=== PATIENT | male | born 1960 | race Caucasian/White ===

== ENCOUNTER 2016-06-28 09:48 | Outpatient (RCR) ==
[2016-02-28 14:51] VITALS: BMI 36.5
[2016-07-27 11:39] VITALS: BP 106/56
== END 2016-07-27 ==
LOC: PUL.REHAB 09:48
PROVIDERS: ATTEND Emergency Medicine
DX: J44.9 Chronic obstructive pulmonary disease, unspecified (principal)

== ENCOUNTER 2016-07-16 08:30 | Outpatient (CLI) | payer OTHER ==
[2016-02-28 14:51] VITALS: BMI 36.5
[2016-07-16 08:55] LABS: BASOPHILS # (AUTO) 0.1 K/uL (0-0.2); BASOPHILS % (AUTO) 0.7 % (0.0-3.0); EOSINOPHILS # (AUTO) 0.6 K/ul (0.0-0.7); EOSINOPHILS % (AUTO) 4.3 % (0.0-7.0); HEMATOCRIT 39.3 % (42.0-52.0); HEMOGLOBIN 12.7 g/dl (14.0-18.0); IMMATURE GRANULOCYTE % (AUTO) 0.6 % (0.0-5.0); LYMPHOCYTES # (AUTO) 2.6 K/uL (0.60-3.4); LYMPHOCYTES % (AUTO) 18.2 (10.0-50.0); MEAN CORPUSCULAR HGB CONC 32.3 (31.8-35.4); MEAN CORPUSCULAR VOLUME 86.6 fl (80.0-94.0); MONOCYTES # (AUTO) 1.1 K/uL (0.4-2.0); MONOCYTES % (AUTO) 7.7 (0-10); NEUTROPHILS # (AUTO) 9.7 K/ul (2.0-6.9); NEUTROPHILS % (AUTO) 68.5; PLATELET COUNT 365 10^3/uL (140-440); RED BLOOD COUNT 4.54 10^6/ul (4.70-6.10); WHITE BLOOD COUNT 14.09 K/ul (4.2-10.2)
[2016-07-16 09:33] LABS: ALBUMIN/GLOBULIN RATIO 1.33; ANION GAP 15.8; BILIRUBIN,TOTAL 0.32 mg/dL (0.00-1.20); BUN/CREATININE RATIO 16.66; CALCIUM 9.7 mg/dL (8.2-10.2); CREATININE 0.84 mg/dL (0.60-1.10); FERRITIN 211.62 ng/mL (21.81-274.66); POTASSIUM 4.8 mmol/L (3.5-5.1)
== END 2016-07-16 08:31 | disposition home or self-care (01) ==
LOC: LAB 08:30
PROVIDERS: ATTEND Internal Medicine Hematology & Oncology
DX: D50.9 Iron deficiency anemia, unspecified (principal)
CPT/HCPCS: 36415; 80053; 82728; 83540; 83550; 85025

== ENCOUNTER 2016-07-19 15:42 | Outpatient (CLI) ==
[2016-02-28 14:51] VITALS: BMI 36.5
[2016-07-19 16:05] LABS: OCCULT BLOOD INTERNAL QC 1 INTERNAL QC VALID; OCCULT BLOOD INTERNAL QC 2 INTERNAL QC VALID; OCCULT BLOOD INTERNAL QC 3 INTERNAL QC VALID; OCCULT BLOOD SAMPLE 1 NEGATIVE (NEGATIVE); OCCULT BLOOD SAMPLE 2 NEGATIVE (NEGATIVE); OCCULT BLOOD SAMPLE 3 NEGATIVE (NEGATIVE)
== END 2016-07-19 15:43 | disposition home or self-care (01) ==
LOC: LAB 15:42
PROVIDERS: ATTEND Internal Medicine Hematology & Oncology
DX: D50.9 Iron deficiency anemia, unspecified (principal)
CPT/HCPCS: 82272

== ENCOUNTER 2016-07-27 11:41 | Outpatient (CLI) ==
[2016-02-28 14:51] VITALS: BMI 36.5
--- NOTE | 2016-07-29 10:02 | HOLTER ---
PATIENT INFORMATION AND COMMENTS Indications: PALPITATIONS __ Patient Medications: DUONEB,PRILOSEC, LISINOPRIL, LIPITOR, DALIRESP, METFORMIN , VIT B6, SYMBICORT, PROAIR, NORCO, FLONASE, BENADRYL __ Pre-procedure Summary: Protocol: Standard Heart Rate Started: 07/27/16 1206 Minimum: 65 BPM Weight: 203 LBS Ended: 07/28/16 1206 Maximum: 147BPM Height: 65" Duration: 24 HOURS Average: 96 BPM _ INTERPRETATIONS/OBSERVATIONS: 1. BASIC RHYTHM: SINUS, RATE 65 TO 150/BPM, AVERAGE 96/BPM 2. INFREQUENT TO RARE PAC'S AND PVC'S 3. FEW SHORT RUNS OF PAT AND SVT, 3 TO 6 BEATS IN A ROW NOTED 4. NO ST-T WAVE CHANGES FROM BASELINE 5. ACTIVITY LOG NOT AVAILABLE MTDD
== END 2016-07-27 11:42 | disposition home or self-care (01) ==
LOC: CAR 11:41
PROVIDERS: ATTEND Emergency Medicine
DX: R00.2 Palpitations (principal); J44.9 Chronic obstructive pulmonary disease, unspecified

== ENCOUNTER 2016-07-28 07:52 | Outpatient (RCR) ==
[2016-07-27 11:51] VITALS: BMI 36.5
== END 2016-08-17 15:41 | disposition home or self-care (01) ==
LOC: PUL.REHAB 07:52
PROVIDERS: ATTEND Emergency Medicine
DX: J44.9 Chronic obstructive pulmonary disease, unspecified (principal)

== ENCOUNTER 2016-08-04 18:25 | Emergency (ER) ==
[2016-08-04] MEDS ORDERED: DUONEB NEB STA (18:27)
[2016-08-04 18:38] VITALS: BP 107/61; TEMP 98.8; BMI 33.7
--- NOTE | 2016-08-04 18:50 | DI ---
EXAM: Single view of the chest. History: Short of breath Comparison: Chest radiograph 02/29/2016 Findings: Normal heart size. No focal consolidation. No appreciable pleural fluid and no pneumoth orax. No acute osseous abnormalities. Impression: No acute cardiopulmonary process.
[2016-08-04 18:54] LABS: BASOPHILS % (AUTO) 0.2 % (0.0-3.0); EOSINOPHILS % (AUTO) 0.1 % (0.0-7.0); HEMATOCRIT 42.7 % (42.0-52.0); HEMOGLOBIN 14.3 g/dl (14.0-18.0); IMMATURE GRANULOCYTE % (AUTO) 0.5 % (0.0-5.0); LYMPHOCYTES # (AUTO) 0.8 K/uL (0.60-3.4); LYMPHOCYTES % (AUTO) 5.6 (10.0-50.0); MEAN CORPUSCULAR HGB CONC 33.5 (31.8-35.4); MEAN CORPUSCULAR VOLUME 83.7 fl (80.0-94.0); MONOCYTES # (AUTO) 0.2 K/uL (0.4-2.0); MONOCYTES % (AUTO) 1.6 (0-10); NEUTROPHILS # (AUTO) 12.7 K/ul (2.0-6.9); PLATELET COUNT 393 10^3/uL (140-440); WHITE BLOOD COUNT 13.79 K/ul (4.2-10.2)
[2016-08-04] MEDS ORDERED: SODIUM CHLORIDE 1,000 ML IV STA (18:58)
--- NOTE | 2016-08-04 19:07 | ED.PDOC ---
General Stated Complaint: PATIENT STATES SAW DR SPENCER TODAY TOLD TO GET A CHEST XRAY- WENT HOME AND RESTED AND GOT WORSE; FIVE DAYS AGO CHEST STARTED TO FEEL FUNNY. TOOK HOME BREATHING TREATMENTS. TODAY GOT UP HAD HARD TIME BREATHING CAME TO THE ER.[End]since 1529 98.8 140 28 96% 107/61 02/03 Time Seen by Physician: 18:30 Mode of Arrival: Walk-In Information Source: Patient, Family Exam Limitations: No limitations Nursing and Triage Documentation Reviewed and Agree: No <SURESH FUNES JR - Last Filed: 08/04/16 19:22> Stated Complaint: Had a recent Negative stress test one week ago. <PIPER JEAN - Last Filed: 08/04/16 20:04> ED Provider: Dr. PIPER JEAN (SURESH FUNES JR) (PIPER JEAN) Chief Complaint: Respiratory Complaint Review of Systems - Review Of Systems Constitutional: Reports: Diaphoresis, Fever, Malaise, Weakness Eyes: Reports: No symptoms Ears, Nose, Mouth, Throat: Reports: No symptoms Respiratory: Reports: Cough, Short of air, Wheezing Cardiac: Reports: Chest pain, Lightheadedness GI: Reports: No symptoms : Reports: No symptoms Musculoskeletal: Reports: No symptoms Skin: Reports: No symptoms Neurological: Reports: No symptoms Endocrine: Reports: No symptoms Hematologic/Lymphatic: Reports: No symptoms All Other Systems: Other <SURESH FUNES JR - Last Filed: 08/04/16 19:22> Past Medical History - Past Medical History Endocrine: Reports: DM 2 Cardiovascular: Reports: None Respiratory: Reports: COPD (oxygen dependent. ), Asthma, Bronchitis Hematological: Reports: None, Anemia Gastrointestinal: Reports: None, GERD Genitourinary: Reports: None Neuro/Psych: Reports: Anxiety, Depression Musculoskeletal: Reports: None Cancer: Reports: None Other Pertinent Past Medical History: Sleep Apnea, Obesity - Surgical History General Surgical History: Reports: Hernia Repair (HERNIA 2010) - Family History Family History: Reports: None - Social History Smoking Status: Current some day smoker Hx Substance Use: No Alcohol Screening: None - Immunizations Tetanus Shot up to Date: Yes <SURESH FUNES JR - Last Filed: 08/04/16 19:22> Physical Exam - Physical Exam Appearance: Ill-appearing, Obese Ill-appearing: Moderate Pain Distress: Moderate Neck: Supple Respiratory: Airway patent, Breath sounds diminished, Rhonchi, Wheezes Cardiovascular: RRR, Tachycardia Psychiatric: Anxious <SURESH FUNES JR - Last Filed: 08/04/16 19:22> Interpretation - Radiology Interpretation Radiology Interpretation By: Radiologist Radiology Results: Negative Exam Interpreted: CXR <PIPER JEAN - Last Filed: 08/04/16 20:04> Re-Evaluation - Re-Evaluation Time of Re-Evaluation: 19:19 Status: Worse (PATINET COMPLAINS BITTERLY OF SHORTNESS OF BREATH CHEST PRESSURE RADIATING INTO CAROTIDS- GRADUALLY IMPROVING ON EXAM- LUNGS TIGHT NO RALES) <SURESH FUNES JR - Last Filed: 08/04/16 19:22> Physician Notification - Case Discussed Time of Notification: 19:22 Endorsed To/Discussed With: DR JEAN <FUNESSURESH SHIVA GUSMAN - Last Filed: 08/04/16 19:22> Critical Care Note - Critical Care Note Total Time (mins): 15 <SURESH FUNES JR - Last Filed: 08/04/16 19:22> Course - Course Hematology/Chemistry: 08/04/16 18:30 08/04/16 18:30 <GIOPIPER TAYLOR - Last Filed: 08/04/16 20:04> - Course Orders, Labs, Meds: Lab Review 08/04/16 18:30 WBC 13.79 H RBC 5.10 Hgb 14.3 Hct 42.7 MCV 83.7 MCH 28.0 MCHC 33.5 RDW Coeff of Sameer 12.9 Plt Count 393 Immature Gran % (Auto) 0.5 Neut % (Auto) 92.0 Lymph % (Auto) 5.6 L [place] % (Auto) 1.6 Eos % (Auto) 0.1 Baso % (Auto) 0.2 Immature Gran # (Auto) 0.1 Neut # 12.7 H Lymph # 0.8 [place] # 0.2 L Eos # 0.0 Baso # 0.0 D-Dimer 0.23 Sodium 137 Potassium 5.2 H Chloride 99 Carbon Dioxide 20 L Anion Gap 23.2 BUN 22 H Creatinine 1.14 H Estimated GFR (MDRD) 66.00 BUN/Creatinine Ratio 19.29 Glucose 221 H Calcium 10.7 H Total Bilirubin 0.22 AST 16 ALT 21 Alkaline Phosphatase 68 Total Creatine Kinase 97 Troponin I < 0.0100 B-Natriuretic Peptide 15 Total Protein 7.6 Albumin 4.3 Globulin 3.3 Albumin/Globulin Ratio 1.30 Orders Category Date Time Status EKG-(ED ONLY) Stat CARDIO 08/04/16 18:29 Completed EKG-(ED ONLY) Stat CARDIO 08/04/16 19:18 Ordered NEBULIZER TREATMENT Stat CARDIO 08/04/16 18:27 Completed NEBULIZER TREATMENT Stat CARDIO 08/04/16 19:17 Ordered IV [ED IV/MEDIPORT/POWERPORT] EMERGENCY 08/04/16 18:58 Active B-TYPE NATRIURETIC PEPTIDE Stat LAB 08/04/16 18:30 Completed BLOOD CULTURE Stat LAB 08/04/16 18:30 Received CBC W/ AUTO DIFF Stat LAB 08/04/16 18:30 Completed COMPREHENSIVE METABOLIC PANEL Stat LAB 08/04/16 18:30 Completed CREATINE KINASE Stat LAB 08/04/16 18:30 Completed D-DIMER Stat LAB 08/04/16 18:30 Completed TROPONIN I Stat LAB 08/04/16 18:30 Completed 0.9 % Sodium Chloride [Saline Flush] MEDS 08/04/16 18:58 Ordered 1 syr IVF PRN PRN Azithromycin [Zithromax] MEDS 08/04/16 19:54 Discontinued 500 mg PO ONCE STA Ipratropium/Albuterol Neb [Duoneb] MEDS 08/04/16 18:27 Discontinued 1 vial NEB ONCE STA Levalbuterol HCl [Xopenex 1.25 mg] MEDS 08/04/16 19:17 Discontinued 1 vial NEB ONCE STA Lorazepam Inj [Ativan] MEDS 08/04/16 19:56 Discontinued 1 mg IVP ONCE STA Methylprednisolone Sod Succ/Pf [Solu-Medrol 125 mg] MEDS 08/04/16 19:53 Discontinued 125 mg IVP ONCE STA Sodium Chloride 0.9% [Sodium Chloride] 1,000 ml MEDS 08/04/16 18:58 Discontinued IV BOLUS CXR [CHEST, 1V AP ONLY] Stat RADS 08/04/16 18:40 Completed Medications Generic Name Dose Route Start Last Admin Trade Name Freq PRN Reason Stop Dose Admin Sodium Chloride 1 syr 08/04/16 18:58 Saline Flush IVF PRN PRN To flush IV Discontinued Medications Generic Name Dose Route Start Last Admin Trade Name Freq PRN Reason Stop Dose Admin Albuterol/Ipratropium 1 vial 08/04/16 18:27 08/04/16 18:39 Duoneb NEB 08/04/16 18:28 1 vial ONCE STA Administration Azithromycin 500 mg 08/04/16 19:54 Zithromax PO 08/04/16 19:55 ONCE STA Sodium Chloride 1,000 mls @ 1,000 mls/hr 08/04/16 18:58 08/04/16 19:07 Sodium Chloride IV 08/04/16 19:57 1,000 mls/hr BOLUS STA Administration Levalbuterol HCl 1 vial 08/04/16 19:17 08/04/16 19:24 Xopenex 1.25 Mg NEB 08/04/16 19:18 1 vial ONCE STA Administration Lorazepam 1 mg 08/04/16 19:56 Ativan IVP 08/04/16 19:57 ONCE STA Methylprednisolone Sodium Succinate 125 mg 08/04/16 19:53 Solu-Medrol 125 Mg IVP 08/04/16 19:54 ONCE STA (SURESH FUNES JR) (PIPER JEAN) Vital Signs: Temp Pulse Resp BP Pulse Ox 08/04/16 18:26 98.8 F 140 H 28 H 107/61 96 (SURESH FUNES JR) (PIPER JEAN) Departure <SURESH FUNES JR - Last Filed: 08/04/16 19:22> - Departure Time of Disposition: 19:54 Pt referred to PMD for follow-up: Yes Disposition Discussed With: Patient, Family <PIPER JEAN - Last Filed: 08/04/16 20:04> - Departure Disposition: HOME SELF-CARE Discharge Problem: COPD exacerbation, Bronchitis, Anxiety Instructions: Acute Bronchitis (ED), Separation Anxiety Disorder (ED) Condition: Fair Additional Instructions: Follow up with PCP in the morning. Take medication as prescribed. Prescriptions: Azithromycin [Zithromax] 250 mg PO DIRECTED #4 tablet Allergies/Adverse Reactions: Allergies gabapentin Allergy (Mild, Verified 08/04/16 18:28) heartburn , nausea No Known Allergies Allergy (Uncoded 08/04/16 18:28) Home Medications: Ambulatory Orders Hydrocodone/Acetaminophen [[place] 10-325 Tablet] 1 tab PO TID 03/02/13 Omeprazole Magnesium [Prilosec] 40 mg PO d 02/04/16 Pyridoxine HCl [Vitamin B-6] 100 mg PO DAILY 02/28/16 Roflumilast [Daliresp] 500 mcg PO DAILY 02/28/16 Azithromycin [Zithromax] 250 mg PO DIRECTED #4 tablet 08/04/16 Ipratropium/Albuterol Neb [Duoneb] 1 applic IH Q4HR 08/04/16
[2016-08-04] MEDS ORDERED: XOPENEX 1.25 MG NEB STA (19:17)
[2016-08-04 19:18] LABS: ALANINE AMINOTRANSFERASE 21 U/L (12-78); ALBUMIN 4.3 g/dL (3.4-5.0); ALKALINE PHOSPHATASE 68 U/L (50-136); ANION GAP 23.2; ASPARTATE AMINO TRANSFERASE 16 U/L (15-37); BILIRUBIN,TOTAL 0.22 mg/dL (0.00-1.20); BLOOD UREA NITROGEN 22 mg/dL (7-18); BUN/CREATININE RATIO 19.29; CALCIUM 10.7 mg/dL (8.2-10.2); CARBON DIOXIDE 20 mmol/L (21-32); CHLORIDE 99 mmol/L (98-107); CREATINE KINASE 97 U/L; CREATININE 1.14 mg/dL (0.60-1.10); GLUCOSE 221 mg/dL (70-100); POTASSIUM 5.2 mmol/L (3.5-5.1); SODIUM 137 mmol/L (136-145); TOTAL PROTEIN 7.6 g/dL (6.4-8.2)
[2016-08-04] MEDS ORDERED: SOLU-MEDROL 125 MG IVP STA (19:53)
[2016-08-04] MEDS ORDERED: ZITHROMAX PO STA (19:54)
[2016-08-04] MEDS ORDERED: ATIVAN IVP STA (19:56)
== END 2016-08-04 21:00 | disposition home or self-care (01) ==
LOC: ED 18:25
DX: J44.0 Chronic obstructive pulmonary disease with (acute) lower respiratory infection (principal); J20.9 Acute bronchitis, unspecified; J44.1 Chronic obstructive pulmonary disease with (acute) exacerbation; F41.9 Anxiety disorder, unspecified; E11.9 Type 2 diabetes mellitus without complications; Z99.81 Dependence on supplemental oxygen; E66.9 Obesity, unspecified; G47.30 Sleep apnea, unspecified; F17.210 Nicotine dependence, cigarettes, uncomplicated; Z79.899 Other long term (current) drug therapy; K21.9 Gastro-esophageal reflux disease without esophagitis
CPT/HCPCS: 36415; 80053; 82550; 83880; 84484; 85025; 85379; 87040; 93005; 93010; 94640; 96360; 96361; 96374; 96375; 99284

== ENCOUNTER 2016-08-05 12:17 | Outpatient (CLI) ==
[2016-08-04 18:38] VITALS: BMI 33.7
--- NOTE | 2016-08-05 13:25 | DI ---
EXAM: Right forearm two-view HISTORY: Pain in right arm COMPARISON: None FINDINGS/IMPRESSION: No acute fracture or dislocation. There is a old healed fracture of the proxim al diaphysis of the radius with remodeling. There is ossific prominence/protuberance proximal ulna, probably due to old trauma/remodeling. 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 Several well marginated ca lcific densities about the wrist may be due to old trauma or chondrocalcinosis.
--- NOTE | 2016-08-05 13:27 | DI ---
EXAM: Chest two view, frontal and lateral views. HISTORY: Bronchitis. COMPARISON: 08/04/2016. FINDINGS: The heart size is normal. There is no pulmonary vascular congestion. The lungs are virgen r. No pleural effusion or pneumothorax is seen. No acute osseous abnormality identified. Since prior study, there has been no significant interval change. IMPRESSION: No acute cardiopulmonary process.
== END 2016-08-05 12:18 | disposition home or self-care (01) ==
LOC: RAD 12:17
PROVIDERS: ATTEND Emergency Medicine
DX: J40 Bronchitis, not specified as acute or chronic (principal); M79.601 Pain in right arm

== ENCOUNTER 2016-10-12 08:02 | Outpatient (CLI) ==
[2016-10-12 08:30] LABS: BASOPHILS # (AUTO) 0.1 K/uL (0-0.2); BASOPHILS % (AUTO) 0.5 % (0.0-3.0); EOSINOPHILS # (AUTO) 0.6 K/ul (0.0-0.7); EOSINOPHILS % (AUTO) 3.8 % (0.0-7.0); HEMATOCRIT 40.8 % (42.0-52.0); HEMOGLOBIN 13.6 g/dl (14.0-18.0); IMMATURE GRANULOCYTE % (AUTO) 0.4 % (0.0-5.0); LYMPHOCYTES # (AUTO) 2.1 K/uL (0.60-3.4); LYMPHOCYTES % (AUTO) 14.3 (10.0-50.0); MEAN CORPUSCULAR HEMOGLOBIN 27.7 pg (27.0-31.0); MEAN CORPUSCULAR HGB CONC 33.3 (31.8-35.4); MEAN CORPUSCULAR VOLUME 83.1 fl (80.0-94.0); MONOCYTES # (AUTO) 1.2 K/uL (0.4-2.0); MONOCYTES % (AUTO) 7.8 (0-10); NEUTROPHILS # (AUTO) 10.9 K/ul (2.0-6.9); NEUTROPHILS % (AUTO) 73.2; PLATELET COUNT 331 10^3/uL (140-440); RED BLOOD COUNT 4.91 10^6/ul (4.70-6.10); WHITE BLOOD COUNT 14.89 K/ul (4.2-10.2)
[2016-10-12 09:00] LABS: ALBUMIN/GLOBULIN RATIO 1.43; ANION GAP 16.2; BILIRUBIN,TOTAL 0.35 mg/dL (0.00-1.20); BUN/CREATININE RATIO 13.15; CALCIUM 9.6 mg/dL (8.2-10.2); CREATININE 0.76 mg/dL (0.60-1.10); POTASSIUM 4.2 mmol/L (3.5-5.1); TOTAL PROTEIN 6.8 g/dL (6.4-8.2)
[2016-10-12 09:19] LABS: FERRITIN 140.11 ng/mL (21.81-274.66)
== END 2016-10-12 08:03 | disposition home or self-care (01) ==
LOC: LAB 08:02
PROVIDERS: ATTEND Internal Medicine Hematology & Oncology
DX: E13.9 Other specified diabetes mellitus without complications (principal); D45 Polycythemia vera; D64.9 Anemia, unspecified
CPT/HCPCS: 36415; 80053; 82728; 83540; 83550; 85025

== ENCOUNTER 2016-10-14 11:30 | Emergency (ER) ==
[2016-10-14 11:36] VITALS: BP 104/66; TEMP 97.8; BMI 34.1
[2016-10-14] MEDS ORDERED: VALIUM SYRINGE IM STA (12:05)
[2016-10-14] MEDS ORDERED: TORADOL IM STA (12:05)
[2016-10-14] MEDS ORDERED: NORFLEX IM STA (12:06)
--- NOTE | 2016-10-14 12:08 | ED.PDOC ---
General ED Provider: Dr. ANNABELLE SILVA Chief Complaint: Back Pain Stated Complaint: low back pain Time Seen by Physician: 11:49 (richard present at all times denied trauma) Mode of Arrival: Walk-In Information Source: Patient Exam Limitations: No limitations [facility] Nursing and Triage Documentation Reviewed and Agree: Yes Musculoskeletal Complaint Exam - Back Pain Complaint/Exam Mechanism of Injury: Reports: No known trauma Onset/Duration: chronic sees a pain clinic on normn 10mg Symptoms Are: Still present Timing: Intermittent Episodes Lasting: Hours Initial Severity: Moderate Current Severity: Moderate Character: Reports: Throbbing, Spasmodic Aggravating: Reports: Movements, Lifting, Bending, Walking Alleviating: Reports: Rest, Position Associated Signs and Symptoms: Denies: Swelling, Redness, Bruising, Fever, Weakness, Numbness, Tingling, Abdominal pain, Flank pain, Bladder incontinence, Bowel incontinence, Weight loss, Pain with weight bearing Related History: Reports: Similar episode TAD Risk Factors: Reports: None AAA Risk Factors: Reports: None Cauda Equina Risk Factors: Reports: None Epidural Abcess Risk Factors: Reports: None Related Surgical History: Reports: None Focal Tenderness: No Paraspinal Muscle Tenderness: No Paraspinal Muscle Spasm: No Scoliosis: No Lordosis: No Kyphosis: No Focal Sensory Loss: Present: None Gait: Present: Unable Differential Diagnoses: Strain, Sprain Review of Systems - Review Of Systems Constitutional: Reports: No symptoms Eyes: Reports: No symptoms Ears, Nose, Mouth, Throat: Reports: No symptoms Respiratory: Reports: No symptoms Cardiac: Reports: No symptoms GI: Reports: No symptoms : Reports: No symptoms Musculoskeletal: Reports: Back pain Skin: Reports: No symptoms Neurological: Reports: No symptoms Endocrine: Reports: No symptoms Hematologic/Lymphatic: Reports: No symptoms All Other Systems: Reviewed and Negative Past Medical History - Past Medical History Endocrine: Reports: DM 2 Cardiovascular: Reports: None Respiratory: Reports: COPD (oxygen dependent. ), Asthma, Bronchitis Hematological: Reports: None, Anemia Gastrointestinal: Reports: None, GERD Genitourinary: Reports: None Neuro/Psych: Reports: Anxiety, Depression Musculoskeletal: Reports: None Cancer: Reports: None Other Pertinent Past Medical History: Sleep Apnea, Obesity - Surgical History General Surgical History: Reports: Hernia Repair (HERNIA 2010) - Family History Family History: Reports: None - Social History Smoking Status: Current some day smoker Hx Substance Use: No Alcohol Screening: None Physical Exam - Physical Exam Appearance: Well-appearing, No pain distress, Well-nourished Eyes: SARAH, EOMI, Conjunctiva clear ENT: Ears normal, Nose normal, Oropharynx normal Respiratory: Airway patent, Breath sounds clear, Breath sounds equal, Respirations nonlabored Cardiovascular: RRR, Pulses normal, No rub, No murmur GI/: Soft, Nontender, No masses, Bowel sounds normal, No Organomegaly Musculoskeletal: Normal strength, ROM intact, No edema, No calf tenderness Skin: Warm, Dry, Normal color Neurological: Sensation intact, Motor intact, Reflexes intact, Cranial nerves intact, Alert, Oriented Psychiatric: Affect appropriate, Mood appropriate Critical Care Note - Critical Care Note Total Time (mins): 0 Course - Course Orders, Labs, Meds: Orders Category Date Time Status Diazepam Syringe [Valium Syringe] MEDS 10/14/16 12:05 Stat 5 mg IM ONCE STA Ketorolac Tromethamine [Toradol] MEDS 10/14/16 12:05 Stat 60 mg IM ONCE STA Orphenadrine Citrate [Norflex] MEDS 10/14/16 12:06 Stat 30 mg IM ONCE STA Medications Discontinued Medications Generic Name Dose Route Start Last Admin Trade Name Freq PRN Reason Stop Dose Admin Diazepam 5 mg 10/14/16 12:05 Valium Syringe IM 10/14/16 12:06 ONCE STA Ketorolac Tromethamine 60 mg 10/14/16 12:05 Toradol IM 10/14/16 12:06 ONCE STA Vital Signs: Temp Pulse Resp BP Pulse Ox 10/14/16 11:34 97.8 F 103 H 16 104/66 94 L Departure - Departure Time of Disposition: 13:00 Disposition: HOME SELF-CARE Discharge Problem: Backache Instructions: Chronic Back Pain (ED) Condition: Good Pt referred to PMD for follow-up: No Additional Instructions: Please call your Family Physician as soon as possible to schedule a follow-up appointment. Allergies/Adverse Reactions: Allergies gabapentin Allergy (Mild, Verified 08/04/16 18:28) heartburn , nausea Home Medications: Ambulatory Orders Hydrocodone/Acetaminophen [[place] 10-325 Tablet] 1 tab PO TID 03/02/13 Omeprazole Magnesium [Prilosec] 40 mg PO d 02/04/16 Pyridoxine HCl [Vitamin B-6] 100 mg PO DAILY 02/28/16 Roflumilast [Daliresp] 500 mcg PO DAILY 02/28/16
== END 2016-10-14 13:05 | disposition home or self-care (01) ==
LOC: ED 11:30
DX: M54.5 Low back pain (principal); G89.29 Other chronic pain; F17.210 Nicotine dependence, cigarettes, uncomplicated
CPT/HCPCS: 96372; 99283

== ENCOUNTER 2016-12-30 07:24 | Outpatient (CLI) ==
[2016-12-30 07:56] LABS: BASOPHILS # (AUTO) 0.1 K/uL (0-0.2); BASOPHILS % (AUTO) 0.7 % (0.0-3.0); EOSINOPHILS # (AUTO) 0.5 K/ul (0.0-0.7); EOSINOPHILS % (AUTO) 3.9 % (0.0-7.0); HEMOGLOBIN 13.5 g/dl (14.0-18.0); IMMATURE GRANULOCYTE % (AUTO) 0.5 % (0.0-5.0); LYMPHOCYTES # (AUTO) 2.1 K/uL (0.60-3.4); LYMPHOCYTES % (AUTO) 15.6 (10.0-50.0); MEAN CORPUSCULAR HEMOGLOBIN 27.1 pg (27.0-31.0); MEAN CORPUSCULAR HGB CONC 32.9 (31.8-35.4); MEAN CORPUSCULAR VOLUME 82.3 fl (80.0-94.0); MONOCYTES # (AUTO) 1.1 K/uL (0.4-2.0); MONOCYTES % (AUTO) 8.1 (0-10); NEUTROPHILS # (AUTO) 9.6 K/ul (2.0-6.9); NEUTROPHILS % (AUTO) 71.2; PLATELET COUNT 331 10^3/uL (140-440); RED BLOOD COUNT 4.98 10^6/ul (4.70-6.10); WHITE BLOOD COUNT 13.45 K/ul (4.2-10.2)
[2016-12-30 08:29] LABS: FERRITIN 139.08 ng/mL (21.81-274.66)
== END 2016-12-30 07:25 | disposition home or self-care (01) ==
LOC: LAB 07:24
PROVIDERS: ATTEND Internal Medicine Hematology & Oncology
DX: D64.9 Anemia, unspecified (principal); D45 Polycythemia vera
CPT/HCPCS: 36415; 82728; 83540; 83550; 85025

== ENCOUNTER 2017-01-10 19:22 | Inpatient (IN) ==
[2017-01-10] MEDS ORDERED: SODIUM CHLORIDE 500 ML IV STA ×2 (19:26→20:38)
[2017-01-10] MEDS ORDERED: CARDIZEM INJ IVP STA (19:26)
[2017-01-10] MEDS ORDERED: CARDIZEM INJ 125 MG in SODIUM CHLORIDE 100 ML IV SCH (19:30)
[2017-01-10 19:53] LABS: BASOPHILS # (AUTO) 0.1 K/uL (0-0.2); BASOPHILS % (AUTO) 0.6 % (0.0-3.0); EOSINOPHILS # (AUTO) 0.6 K/ul (0.0-0.7); EOSINOPHILS % (AUTO) 3.7 % (0.0-7.0); HEMATOCRIT 42.1 % (42.0-52.0); HEMOGLOBIN 14.1 g/dl (14.0-18.0); IMMATURE GRANULOCYTE % (AUTO) 0.4 % (0.0-5.0); LYMPHOCYTES % (AUTO) 19.2 (10.0-50.0); MEAN CORPUSCULAR HEMOGLOBIN 27.1 pg (27.0-31.0); MEAN CORPUSCULAR HGB CONC 33.5 (31.8-35.4); MEAN CORPUSCULAR VOLUME 80.8 fl (80.0-94.0); MONOCYTES # (AUTO) 1.2 K/uL (0.4-2.0); MONOCYTES % (AUTO) 7.6 (0-10); NEUTROPHILS # (AUTO) 10.7 K/ul (2.0-6.9); NEUTROPHILS % (AUTO) 68.5; PLATELET COUNT 337 10^3/uL (140-440); RED BLOOD COUNT 5.21 10^6/ul (4.70-6.10); WHITE BLOOD COUNT 15.58 K/ul (4.2-10.2)
[2017-01-10] MEDS ORDERED: SODIUM CHLORIDE 1,000 ML IV STA (20:12)
[2017-01-10 20:34] LABS: ALANINE AMINOTRANSFERASE 26 U/L (12-78); ALBUMIN 3.7 g/dL (3.4-5.0); ALBUMIN/GLOBULIN RATIO 1.23; ALKALINE PHOSPHATASE 69 U/L (50-136); ASPARTATE AMINO TRANSFERASE 18 U/L (15-37); BILIRUBIN,TOTAL 0.18 mg/dL (0.00-1.20); BLOOD UREA NITROGEN 15 mg/dL (7-18); BUN/CREATININE RATIO 18.51; CARBON DIOXIDE 19 mmol/L (21-32); CHLORIDE 105 mmol/L (98-107); CREATINE KINASE 132 U/L; CREATINE KINASE MB 1.6 ng/ml (0.0-3.6); CREATININE 0.81 mg/dL (0.60-1.10); GLUCOSE 156 mg/dL (70-100); SODIUM 139 mmol/L (136-145); TOTAL PROTEIN 6.7 g/dL (6.4-8.2)
--- NOTE | 2017-01-10 20:40 | ED.PDOC ---
General ED Provider: Dr. MARY BACK-ER Chief Complaint: Palpitations Stated Complaint: magdi been sob and using nebs and now my heart rate is 190s Time Seen by Physician: 19:30 Mode of Arrival: Ambulance Information Source: Patient Exam Limitations: No limitations [facility] Documentation Reviewed and Agree: Yes Respiratory Complaint Exam - Respiratory Complaint/Exam Onset/Duration: less than 2hrs Symptoms Are: Still present Timing: Constant Initial Severity: Moderate Current Severity: Moderate Location: Chest Aggravating: Reports: None Alleviating: Reports: Bronchodilators Associated Signs and Symptoms: Reports: Dyspnea. Denies: Rapid breathing, Fever , Chills, Chest pain, Pleuritic chest pain, Wheezing, Hemoptysis, Dizziness, Calf pain, Calf swelling, Edema, URI, Nasal congestion, Hoarseness, Sinus discomfort, Vomiting, Sore throat, Weight loss, Decreased oral intake, Increased thirst, Increased appetite, Increased urination Related History: Reports: Similar episode History of Healthcare-Acquired Pneumonia: No Pseudomonas Risk Factors: Reports: Chronic Lung Disease Tuberculosis Risk Factors: Reports: Chronic Resp. Faliure Home Oxygen Use: Yes Recent Stress Test: No Recent Echo/LV Function: No Current Antibiotic Use: No Current Asthma Medication Use: No Respiratory Distress: Moderate Inadequate Respiratory Effort: No Dysphagia Present: No Stridor Present: No JVD Present: No Accessory Muscle Use: No Retractions: Not Present Diminished Breath Sounds: No Sinus Tenderness: None Grunting Respirations: No Kussmaul Respirations: No Differential Diagnoses: COPD Exacerbation Non-Traumatic Chest Pain Syncope: EKG Performed Review of Systems - Review Of Systems Constitutional: Reports: No symptoms Eyes: Reports: No symptoms Ears, Nose, Mouth, Throat: Reports: No symptoms Respiratory: Reports: No symptoms Cardiac: Reports: Chest pain, Irregular heart rate, Palpitations GI: Reports: No symptoms : Reports: No symptoms Musculoskeletal: Reports: No symptoms Skin: Reports: No symptoms Neurological: Reports: No symptoms Endocrine: Reports: No symptoms Hematologic/Lymphatic: Reports: No symptoms All Other Systems: Reviewed and Negative Past Medical History - Past Medical History Previously Healthy: Yes Endocrine: Reports: DM 2 Cardiovascular: Reports: None Respiratory: Reports: COPD (oxygen dependent. ), Asthma, Bronchitis Hematological: Reports: None, Anemia Gastrointestinal: Reports: None, GERD Genitourinary: Reports: None Neuro/Psych: Reports: Anxiety, Depression Musculoskeletal: Reports: None Cancer: Reports: None Other Pertinent Past Medical History: Sleep Apnea, Obesity - Surgical History General Surgical History: Reports: Hernia Repair (HERNIA 2010) - Family History Family History: Reports: None - Social History Smoking Status: Current some day smoker, Light tobacco smoker Hx Substance Use: No Alcohol Screening: None Lives: With family Physical Exam - Physical Exam Appearance: Well-appearing, No pain distress, Well-nourished Pain Distress: Mild Eyes: SARAH, EOMI, Conjunctiva clear ENT: Ears normal, Nose normal, Oropharynx normal Neck: Supple Respiratory: Airway patent, Breath sounds clear, Breath sounds equal, Respirations nonlabored Cardiovascular: Irregular rhythm, Tachycardia GI/: Soft Musculoskeletal: Normal strength Skin: Warm Neurological: Sensation intact Psychiatric: Affect appropriate, Anxious Interpretation - Radiology Interpretation Radiology Interpretation By: ED Physician Radiology Results: Negative Exam Interpreted: Portable CXR - EKG Interpretation Time of EKG #1: 20:41 Rate: Tachy Rhythm: Other Ectopy: None ST Segment: Other Re-Evaluation - Re-Evaluation Time of Re-Evaluation: 21:24 Status: Improved Vital Signs Stable: No Pain Level: 0 Appearance: NAD Lungs: Clear Skin: Warm and Dry Neuro: Alert and Oriented X3 CV: RRR Critical Care Note - Critical Care Note Total Time (mins): 0 Course - Course Hematology/Chemistry: 01/10/17 19:45 01/10/17 19:45 Orders, Labs, Meds: Lab Review 01/10/17 01/10/17 19:25 19:45 WBC 15.58 H RBC 5.21 Hgb 14.1 Hct 42.1 MCV 80.8 MCH 27.1 MCHC 33.5 RDW Coeff of Sameer 14.1 Plt Count 337 Immature Gran % (Auto) 0.4 Neut % (Auto) 68.5 Lymph % (Auto) 19.2 [place] % (Auto) 7.6 Eos % (Auto) 3.7 Baso % (Auto) 0.6 Immature Gran # (Auto) 0.1 Neut # 10.7 H Lymph # 3.0 [place] # 1.2 Eos # 0.6 Baso # 0.1 D-Dimer (Manual) 496.63 Puncture Site Lr O2 Saturation 97.0 ABG pH 7.452 H ABG pCO2 29.3 L ABG pO2 86.0 ABG HCO3 20.5 L ABG Total CO2 21 L ABG Base Excess -3 L Nikos Test + O2 Delivery Device Nc Oxygen Liter Flow 4.00 FiO2 % 36.0 Sodium 139 Potassium 4.0 Chloride 105 Carbon Dioxide 19 L Anion Gap 19.0 BUN 15 Creatinine 0.81 Estimated GFR (MDRD) 99.00 BUN/Creatinine Ratio 18.51 Glucose 156 H Calcium 9.0 Total Bilirubin 0.18 AST 18 ALT 26 Alkaline Phosphatase 69 Total Creatine Kinase 132 CK-MB (CK-2) 1.6 CK-MB (CK-2) % 1.81278 Troponin I < 0.0100 B-Natriuretic Peptide 11 Total Protein 6.7 Albumin 3.7 Globulin 3.0 Albumin/Globulin Ratio 1.23 TSH 1.743 Free T4 1.05 Orders Category Date Time Status ABG DRAW REQUEST Stat CARDIO 01/10/17 19:25 Completed EKG-(ED ONLY) Stat CARDIO 01/10/17 19:25 Completed Tax Compliance Manager [ED HAND SINGER APPLIED] .ONCE EMERGENCY 01/10/17 19:36 Active ED IV/MEDIPORT/POWERPORT .ONCE EMERGENCY 01/10/17 19:26 Active ABG Stat LAB 01/10/17 19:25 Completed B-TYPE NATRIURETIC PEPTIDE Stat LAB 01/10/17 19:45 Completed CBC W/ AUTO DIFF Stat LAB 01/10/17 19:45 Completed COMPREHENSIVE METABOLIC PANEL Stat LAB 01/10/17 19:45 Completed CREATINE KINASE Stat LAB 01/10/17 19:45 Completed D-DIMER Stat LAB 01/10/17 19:45 Completed FREE T4 (FREE THYROXINE) Stat LAB 01/10/17 19:45 Completed TROPONIN I Stat LAB 01/10/17 19:45 Completed TSH [THYROID STIMULATING HORMONE] Stat LAB 01/10/17 19:45 Completed 0.9 % Sodium Chloride [Saline Flush] MEDS 01/10/17 19:26 Ordered 1 syr IVF PRN PRN 0.9 % Sodium Chloride [Sodium Chloride] 100 ml MEDS 01/10/17 19:30 Ordered Diltiazem HCl Inj [Cardizem Inj] 125 mg IV 10 mg/hr Digoxin Inj [Lanoxin] MEDS 01/10/17 20:53 Discontinued 500 mcg IVP ONCE STA Diltiazem HCl Inj [Cardizem Inj] MEDS 01/10/17 19:26 Discontinued 15 mg IVP ONCE STA Sodium Chloride 0.9% [Sodium Chloride] 1,000 ml MEDS 01/10/17 20:12 Discontinued IV BOLUS Sodium Chloride 0.9% [Sodium Chloride] 500 ml MEDS 01/10/17 20:38 Active IV BOLUS CXR [CHEST, 1V AP ONLY] Stat RADS 01/10/17 19:27 Taken Medications Generic Name Dose Route Start Last Admin Trade Name Freq PRN Reason Stop Dose Admin Diltiazem HCl 125 mg/ Sodium 125 mls @ 10 mls/hr 01/10/17 19:30 01/10/17 20: 10 Chloride IV 0 mg/hr .[id number] LEROY 0 mls/hr Protocol Titration 10 MG/HR Sodium Chloride 500 mls @ 500 mls/hr 01/10/17 20:38 01/10/17 20:41 Sodium Chloride IV 01/10/17 21:37 500 mls/hr BOLUS STA Administration Sodium Chloride 1 syr 01/10/17 19:26 01/10/17 19:43 Saline Flush IVF 1 syr PRN PRN Administration To flush IV Discontinued Medications Generic Name Dose Route Start Last Admin Trade Name Freq PRN Reason Stop Dose Admin Digoxin 500 mcg 01/10/17 20:53 01/10/17 21:11 Lanoxin IVP 01/10/17 20:54 500 mcg ONCE STA Administration Diltiazem HCl 15 mg 01/10/17 19:26 01/10/17 19:42 Cardizem Inj IVP 01/10/17 19:27 15 mg ONCE STA Administration Sodium Chloride 1,000 mls @ 1,000 mls/hr 01/10/17 20:12 01/10/17 19:45 Sodium Chloride IV 01/10/17 21:11 1,000 mls/hr BOLUS STA Administration Vital Signs: Temp Pulse Resp BP Pulse Ox 01/10/17 21:11 145 H 01/10/17 19:59 142 H 18 01/10/17 19:23 98.3 F 152 H 24 119/98 H 97 Departure - Departure Time of Disposition: 21:25 Disposition: ADMITTED INPATIENT Discharge Problem: Supraventricular tachycardia, COPD exacerbation Instructions: Supraventricular Tachycardia (ED) Condition: Fair Pt referred to PMD for follow-up: Yes Allergies/Adverse Reactions: Allergies gabapentin Allergy (Mild, Verified 08/04/16 18:28) heartburn , nausea Home Medications: Ambulatory Orders Hydrocodone/Acetaminophen [[place] 10-325 Tablet] 1 tab PO TID 03/02/13 Roflumilast [Daliresp] 500 mcg PO DAILY 02/28/16 Metformin HCl [Glucophage] 1,000 mg PO DAILY 01/10/17 Metformin HCl [Glucophage] 500 mg PO BEDTIME 01/10/17 Disposition Discussed With: Patient
[2017-01-10 20:44] LABS: ABG PCO2 29.3 mmHg (35-45); ABG PH 7.452 (7.35-7.45)
[2017-01-10 20:45] LABS: ABG BASE EXCESS -3 (-2.0-2.0); ABG HCO3 20.5 (22.0-26.0); ABG TCO2 21 (22.0-28.0)
[2017-01-10] MEDS ORDERED: LANOXIN IVP STA (20:53)
[2017-01-10] MEDS: ATROVENT 0.02% NEB NEB SCH (21:55)
[2017-01-10] MEDS ORDERED: ATROVENT 0.02% NEB NEB ONE (21:55)
[2017-01-10] MEDS ORDERED: XOPENEX 0.63 MG NEB ONE (21:57)
[2017-01-10] MEDS: XOPENEX 0.63 MG NEB SCH (21:57)
[2017-01-10 23:20] VITALS: BMI 34.0
[2017-01-10] MEDS ORDERED: NORCO 10-325 PO STA (23:37)
[2017-01-11] MEDS ORDERED: LANOXIN IVP STA (01:15)
[2017-01-11] MEDS: BENADRYL PO SCH ×2 (01:20→22:50)
[2017-01-11] MEDS: SODIUM CHLORIDE 1,000 ML IV SCH (01:21)
[2017-01-11] MEDS: XOPENEX 0.63 MG NEB SCH (05:02)
[2017-01-11] MEDS: ATROVENT 0.02% NEB NEB SCH ×2 (05:12→14:09)
[2017-01-11 06:02] LABS: BASOPHILS # (AUTO) 0.1 K/uL (0-0.2); BASOPHILS % (AUTO) 0.6 % (0.0-3.0); EOSINOPHILS # (AUTO) 0.6 K/ul (0.0-0.7); HEMATOCRIT 37.7 % (42.0-52.0); HEMOGLOBIN 12.6 g/dl (14.0-18.0); IMMATURE GRANULOCYTE % (AUTO) 0.4 % (0.0-5.0); LYMPHOCYTES # (AUTO) 2.6 K/uL (0.60-3.4); LYMPHOCYTES % (AUTO) 20.6 (10.0-50.0); MEAN CORPUSCULAR HEMOGLOBIN 27.3 pg (27.0-31.0); MEAN CORPUSCULAR HGB CONC 33.4 (31.8-35.4); MEAN CORPUSCULAR VOLUME 81.6 fl (80.0-94.0); MONOCYTES # (AUTO) 1.2 K/uL (0.4-2.0); MONOCYTES % (AUTO) 9.3 (0-10); NEUTROPHILS % (AUTO) 64.1; PLATELET COUNT 287 10^3/uL (140-440); RED BLOOD COUNT 4.62 10^6/ul (4.70-6.10); WHITE BLOOD COUNT 12.48 K/ul (4.2-10.2)
[2017-01-11 06:20] LABS: ALBUMIN 3.3 g/dL (3.4-5.0); ALBUMIN/GLOBULIN RATIO 1.38; ANION GAP 14.1; BILIRUBIN,TOTAL 0.43 mg/dL (0.00-1.20); BUN/CREATININE RATIO 14.47; CALCIUM 8.3 mg/dL (8.2-10.2); CREATININE 0.76 mg/dL (0.60-1.10); POTASSIUM 4.1 mmol/L (3.5-5.1); TOTAL PROTEIN 5.7 g/dL (6.4-8.2)
[2017-01-11 06:26] LABS: TROPONIN I 0.01 ng/ml (0.0000-0.4000)
[2017-01-11] MEDS ORDERED: PRILOSEC PO SCH (07:30)
--- NOTE | 2017-01-11 07:43 | DI ---
EXAM: Single frontal view of the chest HISTORY: Shortness of breath. COMPARISON: Chest x-ray 08/05/2016 and multiple priors including CT chest 12/25/2015. FINDINGS: Cardiomediastinal silhouette is unremarkable. There is no pneumothorax or pleural effusio n. There is no consolidation, nodule or mass. The osseous structures demonstrate scattered degenera tive disease. IMPRESSION: No acute cardiopulmonary process.
[2017-01-11] MEDS: FERROUS SULFATE PO SCH ×2 (08:58→22:51)
[2017-01-11] MEDS: SYMBICORT 160-4.5 MCG INHALER IH SCH ×2 (08:58→22:52)
[2017-01-11] MEDS: ZESTRIL PO SCH (08:58)
[2017-01-11] MEDS: LOVENOX SUBCUT SCH (08:59)
[2017-01-11] MEDS: LIPITOR PO SCH (08:59)
[2017-01-11] MEDS: GLUCOPHAGE PO SCH ×2 (08:59→17:09)
[2017-01-11] MEDS: NORCO 10-325 PO SCH ×3 (08:59→22:51)
[2017-01-11] MEDS: CARDIZEM PO SCH ×2 (08:59→22:50)
[2017-01-11] MEDS ORDERED: NON-FORMULARY MEDICATION (Lisinopril [Lisinopril] 2.5 MG) PO SCH ×22 (09:00)
[2017-01-11] MEDS ORDERED: NON-FORMULARY MEDICATION (Omeprazole [Omeprazole] 40 MG) PO SCH (09:00)
[2017-01-11] MEDS ORDERED: NON-FORMULARY MEDICATION (Ferrous Sulfate [Iron] 325 MG) PO SCH ×22 (09:00)
[2017-01-11] MEDS ORDERED: DALIRESP PO SCH (09:00)
[2017-01-11] MEDS: NON-FORMULARY MEDICATION (Bupropion Hcl [Wellbutrin Xl] 150 MG) PO SCH (09:05)
[2017-01-11] MEDS ORDERED: XOPENEX 0.63 MG NEB SCH (10:00)
[2017-01-11] MEDS: DUONEB NEB SCH ×4 (10:11→21:46)
--- NOTE | 2017-01-11 10:38 | PCM.PROG ---
Attending Provider: ATTENDING PROVIDER: [facility] DATE OF SERVICE: 01/11/17 SUBJECTIVE: This 56 year old WHITE/ M was hospitalized 01/10/17. The patient was admitted with COPD exacerbation secondary to bronchitis. The patient had episode of SVT in ER for which the patient was given Cardizem. Overnight, the patient's heart rate was in the 120's. Digitalis was given and now the heart rate is 92. The patient still complains of cough, wheezing and shortness of breath. No fever, no chills. He complains of thrush in the mouth and is worried about being cancer. REVIEW OF SYSTEMS: CONSTITUTIONAL: No fever, no chills. ENDOCRINE: No weight loss or weight gain. HEENT: No sinus drainage, no sore throat. Oral thrush. CVS: No angina symptoms. No CHF symptoms. Palpitations. No atypical chest pain for CAD. Shortness of breath. RESPIRATORY: No cough, no hemoptysis. GI: No melena. No abdominal pain. No nausea, no vomiting. : No hematuria. No polyuria. SKIN: No rash. No wounds. MUSCULOSKELETAL: No pain. MALE MODEL: No blackout, no dizziness. No headache. No double vision. PSYCHIATRIC: Not anxious; no depression. No suicidal thoughts. No homicidal thoughts. PHYSICAL EXAMINATION: GENERAL: The patient is obese, sitting in bed in no distress. VITAL SIGNS: Temperature 97.2 F, Pulse 89, Respiratory Rate 20, BP 112/78, Pulse Ox 97% HEENT: Normocephalic, atraumatic. Mouth: Oral mucosa right side has 2 spots left, 3 white patches present but not red. Mucosa is dry, pallor positive. NECK: No JVP, no carotid bruit. No lymphadenopathy. CARDIAC: S1, S2, no S3. No murmur, gallop or regurgitation. LUNGS: Decreased crackles and expiratory wheezing. Clear to auscultation. ABDOMEN: Soft, non-tender. Bowel sounds active. No rigidity, guarding or CVA tenderness. EXTREMITIES: No clubbing, cyanosis or edema. NEUROLOGIC: Awake, alert and oriented x3. LYMPHATIC: No palpable lymph nodes SKIN: Not dry. Intact. MUSCULOSKELETAL: No joint swelling. LAB REVIEW: 01/11/17 06:00 01/11/17 06:00 01/11/17 06:00: WBC 12.48 H, RBC 4.62 L, Hgb 12.6 L, Hct 37.7 L, MCV 81.6, MCH 27.3, MCHC 33.4, RDW Coeff of Sameer 14.2, Plt Count 287, Immature Gran % (Auto) 0.4, Neut % (Auto) 64.1, Lymph % (Auto) 20.6, Caroline % (Auto) 9.3, Eos % (Auto) 5.0, Baso % (Auto) 0.6, Immature Gran # (Auto) 0.1, Neut # 8.0 H, Lymph # 2.6, Caroline # 1.2, Eos # 0.6, Baso # 0.1, Sodium 138, Potassium 4.1, Chloride 106, Carbon Dioxide 22, Anion Gap 14.1, BUN 11, Creatinine 0.76, Estimated GFR (MDRD ) 106.00, BUN/Creatinine Ratio 14.47, Glucose 102 H D, Calcium 8.3, Total Bilirubin 0.43, AST 16, ALT 22, Alkaline Phosphatase 63, Total Creatine Kinase 98, Troponin I 0.0100, Total Protein 5.7 L, Albumin 3.3 L, Globulin 2.4, Albumin /Globulin Ratio 1.38 ASSESSMENT: 1. COPD exacerbation secondary to bronchitis. 2. Status post SVT. 3. Hypertension. 4. Dyslipidemia. 5. Diabetes mellitus. 6. Polycythemia being evaluated by director of managed services in past. 7. Oral thrush. 8. Depression/anxiety. PLAN: 1. Nystatin for oral thrush. 2. The patient to see ENT, Dr. Broussard as outpatient 3. Solu-Medrol 60 q.8hr 4. Continue Xopenex q.6 and Ipratropium 5. Continue Rocephin 6. I & O 7. Out of bed to chair Plan and coordination of the patient's care discussed in the presence of Service Mechanic and nurse. CONDITION: Stable SCRIBED BY: SUHAIL ALCALA, Bullard Machine Operator scribed while in presence of service performed by Dr. GORDY SPENCER-[facility] on 01/11/17 ([id number])
[2017-01-11] MEDS: NYSTATIN ORAL SUSP PO SCH ×3 (11:50→22:51)
[2017-01-11] MEDS: SOLU-MEDROL 125 MG IVP SCH ×2 (12:39→22:52)
[2017-01-11] MEDS: DALIRESP PO SCH (14:33)
--- NOTE | 2017-01-11 15:55 | HP ---
DATE OF SERVICE: 01/10/17 REASON FOR HOSPITALIZATION: Shortness of breath HISTORY OF PRESENT ILLNESS: The patient is a 56 year old male who has COPD on 2 liters nasal cannula and being followup by solar energy technician. He is a [facility] patient. He went fishing with the son and there was a lot of dust there and started having coughing and congestion, getting yellow/green phlegm. Went home to ki start breathing treatments was not helping and started having palpitations. He came to the emergency room with the worsening shortness of breath, coughing, congestion and palpitation. His heart rate was 152. The patient was seen initial by Dr. Segundo then by Dr. Sandhu. They have given him Cardizem 15mg IV push for SVT and dose of Digoxin 500mcg IV was given. At that time he was admitted to the hospital with COPD exacerbation and SVT. ABG were done which showed the pCO2 29.3, pO2 86. REVIEW OF SYSTEMS: CONSTITUTIONAL: No night sweats. Weakness and tired. Feverish feeling but no fever. HEENT: Eyes: No visual changes. No eye pain. No eye discharge. ENT: No runny nose. No epistaxis. No sinus pain. No sore throat. No odynophagia. No ear pain. No congestion. RESPIRATORY: Cough and congestion getting yellow/green sputum. No hemoptysis. CARDIOVASCULAR: No angina symptoms. No CHF symptoms. No atypical chest pain for CAD. No palpitations. Shortness of breath. GASTROINTESTINAL: No abdominal pain. No nausea or vomiting. No diarrhea or constipation. No hematemesis. No hematochezia. GENITOURINARY: No urgency. No frequency. No dysuria. No hematuria. No obstructive symptoms. No discharge. No pain. No significant abnormal bleeding. MUSCULOSKELETAL: No musculoskeletal pain. No joint swelling. No arthritis. NEUROLOGICAL: No headache. No neck pain. No syncope. No seizures. No dizziness. PSYCHIATRIC: Not anxious. No depression. No suicidal thoughts. No homicidal thoughts. SKIN: No rash. No lesions. No wounds. ENDOCRINE: No unexplained weight loss. No weight gain. HEMATOLOGIC/LYMPHATIC: No anemia. No purpura. No petechiae. No prolonged or excessive bleeding. No palpable lymph nodes. PERSONAL/FAMILY/SOCIAL HISTORY: The patient is and lives with the family. Family history is not significant at all because patient's is adopted child. PAST MEDICAL/SURGICAL PROBLEMS: Dyslipidemia Hypertension COPD, oxygen sees Dr. Mon solar energy technician in [facility] Sleep apnea on CPAP History of polycythemia seen by the hematology oncology Hiatal hernia GERD Osteoarthritis DJD spine Diabetes Depression Anxiety Obesity Hernia repaired x3 Tonsillectomy 1977 MEDICATIONS: [place] Daliresp DUO NEBS Albuterol Atorvastatin 10mg PO daily Symbicort two puffs twice a day Lisinopril 2.5mg PO daily Omeprazole 40mg PO daily Wellbutrin 150mg PO daily Diltiazem 30mg PO twice a day Ferrous Sulfate PO twice a day Metformin 1,000 PO daily Metformin 500mg at bedtime Zantac 150mg daily Benadryl 25mg PO bedtime ALLERGIES: Gabapentin PHYSICAL EXAMINATION: GENERAL: The patient is awake and alert. VITAL SIGNS: Blood pressure 119/93, respiratory rate 24, heart rate 152 after the medication went down to 142 and 137 and temperature 98.3. HEENT: Head normocephalic, atraumatic. Eyes: Extraocular muscles are intact. Pupils are equal, round and reactive to light and accommodation. Ears: No lesions. Nose appeared normal. Throat: No exudate or erythema. Mucosa dry. Pallor positive. No icterus. NECK: Supple. No JVD, no carotid bruit. No lymphadenopathy or thyromegaly. LUNGS: Decreased with basilar crackles. Mild defused expiratory wheezing present. Percussion note normal. Chest symmetrical. HEART: S1, S2, no S3. Sinus tachycardia. No murmurs. No cyanosis or clubbing. No ascites. Pulses: Dorsalis pedis and posterior tibial pulses +1 to +2 both sides. ABDOMEN: Soft. Nontender. Bowel sounds active. No CVA tenderness. No mass felt. EXTREMITIES: No edema. Full range of motion of all extremities, equal. NEUROLOGIC: No focal deficit. Cranial nerves II through XII are grossly intact. No headache, no double vision or headache. SKIN: Not dry. Intact. Turgor - normal. LYMPHATIC: No palpable lymph nodes/no lymphedema. MUSCULOSKELETAL: Normal joints with no swelling. Muscle tone is normal. LABS: WBC 15.58, hgb 14.1, hct 32.1, plt count 337, D-Dimer 496. ABG pH 7.452, pCO2 29.3, pO2 86. Sodium 139, potassium 4.0, chloride 105, bicarb 19, BUN 15 and creatinine 0.81 and glucose 156. First set of cardiac enzymes are negative and BNP is 11. ASSESSMENT: 1. COPD exacerbation secondary to the acute bronchitis 2. Status post SVT 3. History of diabetes 4. Hypertension 5. Sleep apnea of CPAP 6. DJD spine 7. Osteoarthritis 8. Depression 9. Anxiety PLAN: 1. Admit the patient to the regular floor 2. CBC and CMP today and daily 3. Cardiac enzymes and Troponin 4. DUO NEBS every 6 hours 5. Solu-Medrol 60mg Q 8 hours 6. Rocephin 1 gram daily 7. Lovenox for the DVT prophylaxis 8. Daily I&O's Will follow the patient in daily rounds. TIME SPENT: More than 70 minutes. MARIA E
[2017-01-11] MEDS: PRILOSEC PO SCH (17:10)
[2017-01-12] MEDS: DUONEB NEB SCH ×6 (01:47→22:30)
[2017-01-12 04:46] LABS: BASOPHILS % (AUTO) 0.2 % (0.0-3.0); EOSINOPHILS % (AUTO) 0.1 % (0.0-7.0); HEMATOCRIT 38.3 % (42.0-52.0); HEMOGLOBIN 12.8 g/dl (14.0-18.0); IMMATURE GRANULOCYTE % (AUTO) 1.2 % (0.0-5.0); LYMPHOCYTES # (AUTO) 0.8 K/uL (0.60-3.4); LYMPHOCYTES % (AUTO) 4.7 (10.0-50.0); MEAN CORPUSCULAR HEMOGLOBIN 27.2 pg (27.0-31.0); MEAN CORPUSCULAR HGB CONC 33.4 (31.8-35.4); MEAN CORPUSCULAR VOLUME 81.3 fl (80.0-94.0); MONOCYTES # (AUTO) 0.3 K/uL (0.4-2.0); MONOCYTES % (AUTO) 1.8 (0-10); PLATELET COUNT 319 10^3/uL (140-440); RED BLOOD COUNT 4.71 10^6/ul (4.70-6.10); WHITE BLOOD COUNT 17.41 K/ul (4.2-10.2)
[2017-01-12] MEDS: SOLU-MEDROL 125 MG IVP SCH ×3 (05:12→21:02)
[2017-01-12 05:15] LABS: ALBUMIN 3.8 g/dL (3.4-5.0); ALBUMIN/GLOBULIN RATIO 1.36; ANION GAP 21.2; BILIRUBIN,TOTAL 0.19 mg/dL (0.00-1.20); BUN/CREATININE RATIO 13.95; CALCIUM 9.3 mg/dL (8.2-10.2); CREATININE 0.86 mg/dL (0.60-1.10); POTASSIUM 4.2 mmol/L (3.5-5.1); TOTAL PROTEIN 6.6 g/dL (6.4-8.2)
[2017-01-12] MEDS: NYSTATIN ORAL SUSP PO SCH ×4 (05:55→21:01)
[2017-01-12] MEDS ORDERED: ATIVAN IVP STA (07:52)
[2017-01-12] MEDS: NON-FORMULARY MEDICATION (Bupropion Hcl [Wellbutrin Xl] 150 MG) PO SCH (08:36)
[2017-01-12] MEDS: CARDIZEM PO SCH ×2 (08:36→21:02)
[2017-01-12] MEDS: ZESTRIL PO SCH (08:36)
[2017-01-12] MEDS: FERROUS SULFATE PO SCH ×2 (08:36→21:01)
[2017-01-12] MEDS: GLUCOPHAGE PO SCH ×2 (08:36→17:12)
[2017-01-12] MEDS: LIPITOR PO SCH (08:36)
[2017-01-12] MEDS: ROCEPHIN 1 GM in SODIUM CHLORIDE 50 ML IV SCH (08:37)
[2017-01-12] MEDS: LOVENOX SUBCUT SCH ×2 (08:37→08:45)
[2017-01-12] MEDS: SYMBICORT 160-4.5 MCG INHALER IH SCH ×2 (08:52→21:01)
[2017-01-12] MEDS: NORCO 10-325 PO SCH ×3 (08:53→21:02)
[2017-01-12] MEDS: DALIRESP PO SCH (14:19)
[2017-01-12] MEDS: PRILOSEC PO SCH (17:12)
[2017-01-12] MEDS: SODIUM CHLORIDE 1,000 ML IV SCH (17:25)
[2017-01-12] MEDS: BENADRYL PO SCH (21:02)
[2017-01-13] MEDS: DUONEB NEB SCH ×3 (01:26→09:20)
[2017-01-13 04:50] LABS: BASOPHILS # (AUTO) 0.1 K/uL (0-0.2); BASOPHILS % (AUTO) 0.2 % (0.0-3.0); EOSINOPHILS % (AUTO) 0.1 % (0.0-7.0); HEMATOCRIT 40.4 % (42.0-52.0); HEMOGLOBIN 13.3 g/dl (14.0-18.0); IMMATURE GRANULOCYTE % (AUTO) 1.6 % (0.0-5.0); LYMPHOCYTES # (AUTO) 1.1 K/uL (0.60-3.4); LYMPHOCYTES % (AUTO) 3.8 (10.0-50.0); MEAN CORPUSCULAR HEMOGLOBIN 26.9 pg (27.0-31.0); MEAN CORPUSCULAR HGB CONC 32.9 (31.8-35.4); MEAN CORPUSCULAR VOLUME 81.8 fl (80.0-94.0); MONOCYTES # (AUTO) 0.9 K/uL (0.4-2.0); MONOCYTES % (AUTO) 3.2 (0-10); NEUTROPHILS # (AUTO) 26.3 K/ul (2.0-6.9); NEUTROPHILS % (AUTO) 91.1; PLATELET COUNT 386 10^3/uL (140-440); RED BLOOD COUNT 4.94 10^6/ul (4.70-6.10); WHITE BLOOD COUNT 28.89 K/ul (4.2-10.2)
[2017-01-13 05:19] LABS: ALBUMIN 3.8 g/dL (3.4-5.0); ALBUMIN/GLOBULIN RATIO 1.31; ANION GAP 21.8; BILIRUBIN,TOTAL 0.19 mg/dL (0.00-1.20); BUN/CREATININE RATIO 18.82; CALCIUM 9.6 mg/dL (8.2-10.2); CREATININE 0.85 mg/dL (0.60-1.10); POTASSIUM 4.8 mmol/L (3.5-5.1); TOTAL PROTEIN 6.7 g/dL (6.4-8.2)
[2017-01-13 05:20] VITALS: TEMP 98.3
[2017-01-13] MEDS: SOLU-MEDROL 125 MG IVP SCH (05:48)
[2017-01-13] MEDS: NYSTATIN ORAL SUSP PO SCH (05:48)
[2017-01-13] MEDS ORDERED: COREG PO SCH (08:30)
[2017-01-13] MEDS: NON-FORMULARY MEDICATION (Bupropion Hcl [Wellbutrin Xl] 150 MG) PO SCH (08:34)
[2017-01-13] MEDS: GLUCOPHAGE PO SCH (08:34)
[2017-01-13] MEDS: FERROUS SULFATE PO SCH (08:35)
[2017-01-13] MEDS: SYMBICORT 160-4.5 MCG INHALER IH SCH (08:35)
[2017-01-13] MEDS: LIPITOR PO SCH (08:35)
[2017-01-13] MEDS: LOVENOX SUBCUT SCH ×2 (08:35→08:41)
[2017-01-13] MEDS: CARDIZEM PO SCH (08:35)
[2017-01-13] MEDS: ZESTRIL PO SCH (08:35)
[2017-01-13] MEDS: ROCEPHIN 1 GM in SODIUM CHLORIDE 50 ML IV SCH (08:36)
[2017-01-13] MEDS: NORCO 10-325 PO SCH (08:43)
[2017-01-13 09:55] VITALS: BP 120/68
--- NOTE | 2017-01-26 10:50 | DS ---
DATE OF SERVICE: 01/13/17 FINAL DIAGNOSIS: 1. COPD exacerbation secondary to the acute bronchitis 2. Leukocytosis from the steroids and the history of the polycythemia 3. Hypertension 4. Status post SVT, on the medication which is better now. 5. Sleep apnea, on CPAP 6. Hiatal hernia 7. GERD 8. Diabetes 9. Osteoarthritis 10.DJD spine 11.Depression 12.Anxiety 13.History of tonsillectomy 14.DJD spine repair DISCHARGE INSTRUCTIONS: Discharge the patient home. Followup in the [facility] within 5-7 days. Continue the rest of the home medications. MEDICATIONS AT DISCHARGE: DUO NEBS Atorvastatin Symbicort Wellbutrin Diltazem Benadryl Iron tablets [place] Lisinopril Metformin 500 PO twice day Omeprazole 40mg PO daily Zantac 150mg PO daily NEW PRESCRIPTIONS: Keflex 500mg take capsules by mouth twice a day for 7 days Prednisone 10mg take one tablet by mouth with food for 7 days Coreg 3.25mg twice a day Nystatin swish and spit DIET INSTRUCTIONS: Cardiac and healthy ACTIVITY: Plenty of rest and gradually resume regular activity. SMOKING: Avoid second hand smoke DISEASE SPECIFIC EDUCATION: COPD Risk of pneumonia been discussed Avoiding second hand smoking Use of oxygen and highly inflammable state of the oxygen been discussed with the patient and verbalized understanding HOSPITAL COURSE: Nguyễn Farris who is a 56 year old male with the history of the COPD oxygen dependant came to the Emergency Room after having a day of fishing and being exposed to the dust outside, started having cough, congestion and shortness of breath. He came to the Emergency Room and was seen by ER physician Dr. Sandhu. ABG done which showed the pH 7.452, pCO2 29.3, pO2 86, D-Dimer 496, WBC 15,000 with the neutrophil left shift. Chest x-ray did not show any pneumonia. At that time the patient was admitted to the hospital and started the IV antibiotics and the IV fluids, breathing treatment and DUO NEBS. With the given treatment gradually the patient was feeling better. The patient did have episode of SVT in the emergency room for which the Cardizem 15mg IV push was given and Digitalis one gram given. Next day that patient's heart rate was 137 with blood pressure 104 systolic and one more dose of the Digitalis was given. Gradually his heart rate was getting better. The patient's nebulizer was changed to the Xopenex. The patient got upset secondary to the way the nurses were behaving, I reassured the patient and he was willing to stay. He threatened to go against medical advised then he realized he needed to stay as patient was still feeling bad. By next day that patient's shortness of breath and breath difficulty was a lot improved and was able to sleep good. Lovenox was given for the DVT prophylaxis. The patient did have oral thrush so Nystatin swish and spit was given. As patient was doing better and did not have any complication today, more active the patient is discharged back to home today and will be followed at the [facility] within one week. TIME SPENT: More than 55 minutes. MARIA E
== END 2017-01-13 11:36 | disposition home or self-care (01) | DRG 191 ==
LOC: ED 19:22 → SCU 21:44 → MEDSURG B 01-11 14:55
PROVIDERS: ADMIT Emergency Medicine; ATTEND Emergency Medicine
DX: J44.1 Chronic obstructive pulmonary disease with (acute) exacerbation (principal); I47.1 Supraventricular tachycardia; B37.0 Candidal stomatitis; J20.9 Acute bronchitis, unspecified; J44.0 Chronic obstructive pulmonary disease with (acute) lower respiratory infection; R06.02 Shortness of breath; R07.9 Chest pain, unspecified; T38.0X5A Adverse effect of glucocorticoids and synthetic analogues, initial encounter; D72.829 Elevated white blood cell count, unspecified; D75.1 Secondary polycythemia; I10 Essential (primary) hypertension; G47.30 Sleep apnea, unspecified; E11.9 Type 2 diabetes mellitus without complications; F41.8 Other specified anxiety disorders; F17.200 Nicotine dependence, unspecified, uncomplicated; Z99.81 Dependence on supplemental oxygen; Y92.230 Patient room in hospital as the place of occurrence of the external cause; Z79.899 Other long term (current) drug therapy
CPT/HCPCS: 36415; 80053; 82550; 82553; 82803; 82962; 83880; 84439; 84443; 84484; 85025; 85379; 87081; 93005; 93010; 94640; 96361; 96365; 96375; 99284; 99285

== ENCOUNTER 2017-04-05 13:24 | Outpatient (CLI) | payer OTHER ==
[2017-04-05 14:06] LABS: BASOPHILS # (AUTO) 0.1 K/uL (0-0.2); BASOPHILS % (AUTO) 0.5 % (0.0-3.0); EOSINOPHILS # (AUTO) 0.4 K/ul (0.0-0.7); EOSINOPHILS % (AUTO) 2.9 % (0.0-7.0); HEMATOCRIT 42.4 % (42.0-52.0); HEMOGLOBIN 14.4 g/dl (14.0-18.0); IMMATURE GRANULOCYTE % (AUTO) 0.6 % (0.0-5.0); LYMPHOCYTES # (AUTO) 1.7 K/uL (0.60-3.4); LYMPHOCYTES % (AUTO) 11.4 (10.0-50.0); MEAN CORPUSCULAR HEMOGLOBIN 27.5 pg (27.0-31.0); MEAN CORPUSCULAR VOLUME 81.1 fl (80.0-94.0); MONOCYTES % (AUTO) 6.3 (0-10); NEUTROPHILS # (AUTO) 11.8 K/ul (2.0-6.9); NEUTROPHILS % (AUTO) 78.3; PLATELET COUNT 291 10^3/uL (140-440); RED BLOOD COUNT 5.23 10^6/ul (4.70-6.10); WHITE BLOOD COUNT 15.04 K/ul (4.2-10.2)
[2017-04-05 15:06] LABS: FERRITIN 145.79 ng/mL (21.81-274.66)
== END 2017-04-05 13:25 | disposition home or self-care (01) ==
LOC: LAB 13:24
PROVIDERS: ATTEND Allergy & Immunology Allergy
DX: J30.1 Allergic rhinitis due to pollen (principal); D50.9 Iron deficiency anemia, unspecified
CPT/HCPCS: 36415; 82728; 83540; 83550; 85025

== ENCOUNTER 2017-04-06 14:45 | Outpatient (CLI) ==
[2017-04-06 15:52] LABS: ALBUMIN 3.6 g/dL (3.4-5.0); ALBUMIN/GLOBULIN RATIO 1.2; BILIRUBIN,TOTAL 0.26 mg/dL (0.00-1.20); BUN/CREATININE RATIO 14.86; CALCIUM 9.4 mg/dL (8.2-10.2); CHOL/HDL RATIO 3.1 (4.5-6.4); CREATININE 0.74 mg/dL (0.60-1.10); TOTAL PROTEIN 6.6 g/dL (6.4-8.2)
== END 2017-04-06 14:46 | disposition home or self-care (01) ==
LOC: LAB 14:45
PROVIDERS: ATTEND Emergency Medicine
DX: E10.9 Type 1 diabetes mellitus without complications (principal); D75.1 Secondary polycythemia
CPT/HCPCS: 36415; 80053; 80061; 83036; 84443

== ENCOUNTER 2017-04-25 13:06 | Inpatient (IN) ==
[2017-04-25] MEDS ORDERED: TYLENOL PO PRN (13:15)
[2017-04-25] MEDS ORDERED: VISTARIL PO SCH ×2 (13:30→14:00)
[2017-04-25] MEDS: DUONEB NEB SCH ×3 (13:37→20:47)
[2017-04-25 13:44] LABS: ABG BASE EXCESS -1 (-2.0-2.0); ABG HCO3 23.4 (22.0-26.0); ABG PCO2 34.8 mmHg (35-45); ABG PH 7.436 (7.35-7.45); ABG TCO2 24 (22.0-28.0)
[2017-04-25 13:46] VITALS: BMI 35.4
[2017-04-25 13:58] LABS: BASOPHILS # (AUTO) 0.1 K/uL (0-0.2); BASOPHILS % (AUTO) 0.6 % (0.0-3.0); EOSINOPHILS # (AUTO) 0.4 K/ul (0.0-0.7); EOSINOPHILS % (AUTO) 1.7 % (0.0-7.0); HEMOGLOBIN 14.6 g/dl (14.0-18.0); IMMATURE GRANULOCYTE % (AUTO) 1.1 % (0.0-5.0); LYMPHOCYTES # (AUTO) 2.3 K/uL (0.60-3.4); LYMPHOCYTES % (AUTO) 10.7 (10.0-50.0); MEAN CORPUSCULAR HEMOGLOBIN 27.5 pg (27.0-31.0); MEAN CORPUSCULAR VOLUME 81.1 fl (80.0-94.0); MONOCYTES # (AUTO) 1.2 K/uL (0.4-2.0); MONOCYTES % (AUTO) 5.9 (0-10); NEUTROPHILS # (AUTO) 16.8 K/ul (2.0-6.9); PLATELET COUNT 317 10^3/uL (140-440)
[2017-04-25 14:19] LABS: ALBUMIN 3.8 g/dL (3.4-5.0); ALBUMIN/GLOBULIN RATIO 1.12; ANION GAP 15.4; BILIRUBIN,TOTAL 0.34 mg/dL (0.00-1.20); BUN/CREATININE RATIO 18.29; CALCIUM 9.9 mg/dL (8.2-10.2); CREATININE 0.82 mg/dL (0.60-1.10); POTASSIUM 4.4 mmol/L (3.5-5.1); TOTAL PROTEIN 7.2 g/dL (6.4-8.2)
[2017-04-25] MEDS ORDERED: DALIRESP PO ONE (15:00)
--- NOTE | 2017-04-25 15:54 | CT ---
EXAM: CT of the chest without contrast History: Short of breath Comparison: Chest radiograph 01/10/2017, chest CT 12/25/2015 Technique: Multiplanar CT images through the thorax were obtained without the administration of IV co ntrast Findings: Heart size is within normal limits. No pericardial effusion. Great vessels are unremarka ble. Mild bilateral gynecomastia. No pathologically enlarged thoracic lymph nodes. No consolidatio n. No pleural fluid and no pneumothorax. No suspicious lung masses or lung nodules. Mild emphysema again noted. Within the visualized upper abdomen, no acute findings. No acute osseous abnormalities. Degenerativ e changes of the spine again appreciated. Impression: No acute intrathoracic process.
[2017-04-25] MEDS: SODIUM CHLORIDE 1,000 ML IV SCH (16:59)
[2017-04-25] MEDS: ROCEPHIN 1 GM in SODIUM CHLORIDE 50 ML IV SCH (17:00)
[2017-04-25] MEDS: NORCO 10-325 PO SCH ×2 (17:35→22:06)
[2017-04-25] MEDS: COREG PO SCH (17:39)
[2017-04-25] MEDS: ZITHROMAX 500 MG in SODIUM CHLORIDE 250 ML IV SCH (17:40)
[2017-04-25 20:14] LABS: CREATINE KINASE 43 U/L
[2017-04-25] MEDS ORDERED: NON-FORMULARY MEDICATION (Ferrous Sulfate [Iron] 325 MG) PO SCH ×22 (21:00)
[2017-04-25] MEDS: BENADRYL PO SCH (22:04)
[2017-04-25] MEDS: CARDIZEM PO SCH (22:05)
[2017-04-25] MEDS: GLUCOPHAGE PO SCH (22:06)
[2017-04-25] MEDS: FERROUS SULFATE PO SCH (22:06)
[2017-04-25] MEDS: SYMBICORT 160-4.5 MCG INHALER IH SCH (22:07)
[2017-04-25] MEDS: PRILOSEC PO SCH (22:18)
[2017-04-26] MEDS: DUONEB NEB SCH ×6 (01:00→22:08)
[2017-04-26 05:59] LABS: TROPONIN I 0.02 ng/ml (0.0000-0.4000)
[2017-04-26] MEDS ORDERED: PRILOSEC PO SCH (06:30)
[2017-04-26] MEDS: SYMBICORT 160-4.5 MCG INHALER IH SCH ×2 (08:29→21:59)
[2017-04-26] MEDS: ROCEPHIN 1 GM in SODIUM CHLORIDE 50 ML IV SCH (08:29)
[2017-04-26] MEDS: CARDIZEM PO SCH ×2 (08:33→21:58)
[2017-04-26] MEDS: FERROUS SULFATE PO SCH ×2 (08:34→22:01)
[2017-04-26] MEDS: COREG PO SCH ×2 (08:34→17:06)
[2017-04-26] MEDS: ZESTRIL PO SCH (08:36)
[2017-04-26] MEDS: NON-FORMULARY MEDICATION (Bupropion Hcl [Wellbutrin Xl] 150 MG) PO SCH (08:37)
[2017-04-26] MEDS: SPIRIVA IH SCH (08:38)
[2017-04-26] MEDS: NORCO 10-325 PO SCH ×3 (08:51→21:59)
[2017-04-26] MEDS: LIPITOR PO SCH (08:52)
[2017-04-26] MEDS: GLUCOPHAGE PO SCH ×2 (08:53→21:58)
[2017-04-26] MEDS ORDERED: NON-FORMULARY MEDICATION (Metformin Hcl [Glucophage] 1,000 MG) PO SCH ×22 (09:00)
[2017-04-26] MEDS ORDERED: NON-FORMULARY MEDICATION (Omeprazole [Omeprazole] 40 MG) PO SCH (09:00)
[2017-04-26] MEDS ORDERED: NON-FORMULARY MEDICATION (Lisinopril [Lisinopril] 2.5 MG) PO SCH ×22 (09:00)
[2017-04-26] MEDS ORDERED: DALIRESP PO SCH ×2 (09:00→15:00)
[2017-04-26] MEDS: ZITHROMAX 500 MG in SODIUM CHLORIDE 250 ML IV SCH (09:45)
[2017-04-26] MEDS: SOLU-MEDROL 125 MG IVP SCH ×3 (09:46→22:10)
[2017-04-26] MEDS ORDERED: NYSTATIN ORAL SUSP PO STA (15:13)
[2017-04-26] MEDS: NYSTATIN ORAL SUSP PO SCH ×2 (17:05→21:59)
[2017-04-26] MEDS: HUMULIN R SUBCUT PRN ×2 (17:50→21:59)
[2017-04-26] MEDS: PRILOSEC PO SCH (21:58)
[2017-04-26] MEDS: BENADRYL PO SCH (21:58)
[2017-04-26] MEDS: SODIUM CHLORIDE 1,000 ML IV SCH (22:10)
[2017-04-27] MEDS: DUONEB NEB SCH ×3 (02:00→10:07)
[2017-04-27] MEDS: SOLU-MEDROL 125 MG IVP SCH (06:03)
[2017-04-27] MEDS: NYSTATIN ORAL SUSP PO SCH (06:03)
[2017-04-27 06:19] VITALS: BP 126/75; TEMP 96.6
[2017-04-27] MEDS: ROCEPHIN 1 GM in SODIUM CHLORIDE 50 ML IV SCH (09:36)
[2017-04-27] MEDS: SPIRIVA IH SCH (09:39)
[2017-04-27] MEDS: SYMBICORT 160-4.5 MCG INHALER IH SCH (09:39)
[2017-04-27] MEDS: LIPITOR PO SCH (09:40)
[2017-04-27] MEDS: GLUCOPHAGE PO SCH (09:40)
[2017-04-27] MEDS: CARDIZEM PO SCH (09:40)
[2017-04-27] MEDS: NORCO 10-325 PO SCH (09:41)
[2017-04-27] MEDS: ZESTRIL PO SCH (09:41)
[2017-04-27] MEDS: COREG PO SCH (09:41)
[2017-04-27] MEDS: FERROUS SULFATE PO SCH (09:44)
[2017-04-27] MEDS: NON-FORMULARY MEDICATION (Bupropion Hcl [Wellbutrin Xl] 150 MG) PO SCH (09:48)
[2017-04-27] MEDS: ZITHROMAX 500 MG in SODIUM CHLORIDE 250 ML IV SCH (10:18)
--- NOTE | 2017-06-02 14:48 | PN ---
DATE OF SERVICE: 04/26/17 SUBJECTIVE: Admitted from the office for COPD exacerbation and bronchitis. Still having cough and wheezing otherwise no fever, no chills, no PND, no orthopnea. The patient's is in the room. REVIEW OF SYSTEMS: CONSTITUTIONAL: No fever, no chills. HEENT: Normal. ENDOCRINE: No weight gain, no weight loss. CVS: No angina symptoms. No CHF symptoms. No palpitations. No atypical chest pain for CAD. No shortness of breath. No PND, no orthopnea. RESPIRATORY: Cough and wheeze. No hemoptysis. GI: No nausea, no vomiting. No abdominal pain. : No hematuria. No polyuria. MUSCULOSKELETAL:. No joint swelling. PSYCHIATRIC: Not anxious. No depression. No suicidal thoughts. No homicidal thoughts. SKIN: Intact. No rash. PHYSICAL EXAMINATION: V/S: BP 108/62, respiratory rate 14, heart rate 99, temperature 98.1, saturation 94 on 2L. HEENT: Normocephalic, atraumatic. Mucosa dry. Pallor positive. No icterus. NECK: Supple. No JVD, no carotid bruit. No lymphadenopathy. LUNGS: Bilateral entry is decreased, basilar crackles with expiratory wheezing. No rales or rhonchi. HEART: S1, S2 normal. No S3. No murmur, gallop or regurgitation. ABDOMEN: Soft, nontender. Bowel sounds active. No rigidity. No rebound or guarding. No CVA tenderness. EXTREMITIES: No clubbing, cyanosis or pedal edema. MUSCULOSKELETAL: No joint swelling. NEUROLOGIC: Awake, alert, oriented times three. No focal deficit. LYMPHATIC: No lymph nodes palpable. SKIN: Intact. LABS: White count 21,000 with left shift, hemoglobin 14.6, hematocrit 43.0, platelet count 317. ABG pH 7.436, pc02 34.8, p02 76. Sodium 136, potassium 4.4, chloride 103, bicarb 22, BUN 15, creatinine 0.82. ASSESSMENT: 1. COPD EXACERBATION SECONDARY TO BRONCHITIS 2. ELEVATED LEUKOCYTES 3. HISTORY OF DIABETES 4. HYPERTENSION 5. DYSLIPIDEMIA 6. COPD, OXYGEN DEPENDENT PLAN: 1. Continue Rocephin and Azithromycin, Duonebs and steroids 2. Accu-Cheks with coverage TIME SPENT: More than 35 minutes MTDD
--- NOTE | 2017-06-03 11:55 | DS ---
DATE OF SERVICE: 04/27/17 FINAL DIAGNOSIS: 1. COPD EXACERBATION SECONDARY TO BRONCHITIS 2. LEUKOCYTOSIS SECONDARY TO BRONCHITIS 3 HISTORY OF SVT 4. HYPERTENSION 5. COPD 6. HIATAL HERNIA 7. ARTHRITIS 8. DJD SPINE 9. DIABETES 10. DEPRESSION 11. ANXIETY DISCHARGE INSTRUCTIONS: Followup appointment: [facility] on 05/04/17 at 1:30 p.m. MEDICATIONS AT DISCHARGE: ProAir Atorvastatin Symbicort Wellbutrin Coreg Cardizem Benadryl Iron Fluticasone allergy pill Hydrocodone Duonebs Lisinopril Metformin Omeprazole Prednisone Zantac Daliresp Spiriva NEW PRESCRIPTIONS: Keflex 500 mg twice a day for 7 days Prednisone 10 mg twice a day for 5 days DIET INSTRUCTIONS: Cardiac and Healthy Diet ACTIVITY: As much as tolerated. SMOKING: Former smoker DISEASE SPECIFIC EDUCATION: COPD Need of pneumonia vaccination Elevated white count need for the blood count recheck been discussed HOSPITAL COURSE: This is a 57-year-old male with history of COPD, oxygen dependent. The patient came to the office 2 to 3 days before with cough and congestion. He was given outpatient Amoxicillin and steroids. He went home, was not feeling well with cough and congestion, came to the office panting for air. At that time the patient was admitted to the hospital from the office directly. He was started on IV antibiotics, breathing treatments and Solu-Medrol. With the given treatment, he was gradually feeling better, up and about and able to walk, less short of breath. No fever or chills. Hospital stay was uneventful. TIME SPENT: MORE THAN 40 MINUTES MTDD
== END 2017-04-27 13:30 | disposition home or self-care (01) | DRG 192 ==
LOC: MEDSURG A 13:06
PROVIDERS: ADMIT Emergency Medicine; ATTEND Emergency Medicine
DX: J44.1 Chronic obstructive pulmonary disease with (acute) exacerbation (principal); J20.9 Acute bronchitis, unspecified; J44.0 Chronic obstructive pulmonary disease with (acute) lower respiratory infection; D72.829 Elevated white blood cell count, unspecified; E11.9 Type 2 diabetes mellitus without complications; I10 Essential (primary) hypertension; E78.5 Hyperlipidemia, unspecified; K44.9 Diaphragmatic hernia without obstruction or gangrene; M19.90 Unspecified osteoarthritis, unspecified site; M47.9 Spondylosis, unspecified; F41.8 Other specified anxiety disorders; Z86.79 Personal history of other diseases of the circulatory system; Z99.81 Dependence on supplemental oxygen; Z79.899 Other long term (current) drug therapy
CPT/HCPCS: 36415; 80053; 82550; 82803; 82962; 83880; 84484; 85025; 93005; 93010; 94640; 97802; 99223; 99233; 99239

== ENCOUNTER 2017-08-11 10:02 | Outpatient (CLI) | END 2017-08-11 10:03 | disposition left against medical advice (07) | LOC: AMBL 10:02 | PROVIDERS: ATTEND Emergency Medicine | DX: Z04.3 Encounter for examination and observation following other accident (principal); W19.XXXA Unspecified fall, initial encounter; Y92.59 Other trade areas as the place of occurrence of the external cause ==

== ENCOUNTER 2017-08-11 11:47 | Outpatient (CLI) | payer OTHER | END 2017-08-11 11:48 | disposition home or self-care (01) | LOC: LAB 11:47 | PROVIDERS: ATTEND Nurse Practitioner Family | DX: R06.2 Wheezing (principal); R06.02 Shortness of breath; R05 Cough | CPT/HCPCS: 87804 ==

== ENCOUNTER 2017-08-14 15:29 | Inpatient (IN) ==
[2017-08-14] MEDS ORDERED: DUONEB NEB STA (15:54)
--- NOTE | 2017-08-14 16:53 | ED.PDOC ---
General ED Provider: Dr. ANNABELLE SILVA Chief Complaint: Respiratory Complaint Stated Complaint: short of air Time Seen by Physician: 16:00 (seen with BRANDIN COLEMAN) Mode of Arrival: Wheelchair Information Source: Patient Exam Limitations: No limitations (SEEN TREATED AT CLINIC FOR INFLUENZA WITH ROCEPHIN PRESENTLY ON LEVAQUIN, TAMIFLU, PREDNISONE) Primary [facility] and Triage Documentation Reviewed and Agree: Yes Reviewed sepsis parameters & appropriate labs ordered?: Yes (PT IS O2 2L AT HOME ) System Inflammatory Response Syndrome: Not Applicable Sepsis Protocol: For patient's 13 years and over: Temp is 96.8 and below OR 101 and greater Pulse >90 BPM Resp >20/minute Acutely Altered Mental Status Are patient's symptoms suggestive of a new infection, such as: -Pneumonia -Skin, Soft Tissue -Endocarditis -UTI -Bone, Joint Infection -Implantable Device -Acute Abdominal Infection -Wound Infection -Meningitis -Blood Stream Catheter Infection -Unknown System Inflammatory Response Syndrome: Not Applicable Respiratory Complaint Exam - Respiratory Complaint/Exam Onset/Duration: FLU LIKE SYMPX 3 DAYS Symptoms Are: Still present (NOT IMPROVED ) Timing: Constant Initial Severity: Mild Current Severity: Mild Location: Nose, Throat, Chest Character: Reports: Non-productive cough Aggravating: Reports: URI Alleviating: Reports: Bronchodilators Associated Signs and Symptoms: Reports: Wheezing, URI. Denies: Rapid breathing , Dyspnea, Fever, Chills, Chest pain, Pleuritic chest pain, Hemoptysis, Dizziness, Calf pain, Calf swelling, Edema, Nasal congestion, Hoarseness, Sinus discomfort, Vomiting, Sore throat, Weight loss, Decreased oral intake, Increased thirst, Increased appetite, Increased urination Related History: Reports: Similar episode History of Healthcare-Acquired Pneumonia: No Related Surgical History: Reports: None Pulmonary Embolism Risk Factors: Bedrest Cardiac Risk Factors: Reports: Diabetes Pseudomonas Risk Factors: Reports: Chronic Lung Disease Tuberculosis Risk Factors: Reports: None Status Asthmaticus Risk Factors: Reports: None Home Oxygen Use: No Recent Stress Test: No Recent Echo/LV Function: No Current Antibiotic Use: No Current Asthma Medication Use: No Respiratory Distress: None Inadequate Respiratory Effort: No Dysphagia Present: No Stridor Present: No JVD Present: No Retractions: Not Present Sinus Tenderness: None Grunting Respirations: No Kussmaul Respirations: No Differential Diagnoses: Pneumonia, Bronchitis Non-Traumatic Chest Pain Syncope: EKG Performed Review of Systems - Review Of Systems Constitutional: Reports: Chills, Loss of appetite Eyes: Reports: No symptoms Ears, Nose, Mouth, Throat: Reports: No symptoms Respiratory: Reports: Cough, Wheezing Cardiac: Reports: No symptoms GI: Reports: No symptoms : Reports: No symptoms Musculoskeletal: Reports: No symptoms Skin: Reports: No symptoms Neurological: Reports: No symptoms Endocrine: Reports: No symptoms Hematologic/Lymphatic: Reports: No symptoms All Other Systems: Reviewed and Negative Past Medical History - Past Medical History Previously Healthy: Yes Endocrine: Reports: DM 2 Cardiovascular: Reports: None Respiratory: Reports: COPD (oxygen dependent. ), Asthma, Bronchitis Hematological: Reports: None, Anemia Gastrointestinal: Reports: None, GERD Genitourinary: Reports: None Neuro/Psych: Reports: Anxiety, Depression Musculoskeletal: Reports: None Cancer: Reports: None Other Pertinent Past Medical History: Sleep Apnea, Obesity - Surgical History General Surgical History: Reports: Hernia Repair (HERNIA 2010) - Family History Family History: Reports: None - Social History Smoking Status: Former smoker Hx Substance Use: No Alcohol Screening: None Physical Exam - Physical Exam Appearance: Ill-appearing Ill-appearing: Mild Pain Distress: Mild Eyes: SARAH, EOMI, Conjunctiva clear ENT: Ears normal, Nose normal, Oropharynx normal Respiratory: Wheezes Cardiovascular: RRR, Pulses normal, No rub, No murmur GI/: Soft, Nontender, No masses, Bowel sounds normal, No Organomegaly Musculoskeletal: Normal strength, ROM intact, No edema, No calf tenderness Skin: Warm, Dry, Normal color Neurological: Sensation intact, Motor intact, Reflexes intact, Cranial nerves intact, Alert, Oriented Psychiatric: Affect appropriate, Mood appropriate Interpretation - Cloth Designer Rate: Tachy Rhythm: Sinus - EKG Interpretation Rate: Tachy Rhythm: Sinus Ectopy: None [place]: NL ST Segment: Normal Physician Notification - Case Discussed Physician Notified: PMD Time of Notification: 05:30 Admit To: Observation Critical Care Note - Critical Care Note Total Time (mins): 0 Course - Course Hematology/Chemistry: 08/14/17 16:07 08/14/17 16:07 Orders, Labs, Meds: Lab Review 08/14/17 08/14/17 08/14/17 15:54 16:07 16:07 WBC 12.21 H RBC 5.25 Hgb 14.2 Hct 42.6 MCV 81.1 MCH 27.0 MCHC 33.3 RDW Coeff of Sameer 13.5 Plt Count 319 Immature Gran % (Auto) 0.9 Neut % (Auto) 71.5 Lymph % (Auto) 13.2 Weston % (Auto) 13.5 H Eos % (Auto) 0.6 Baso % (Auto) 0.3 Immature Gran # (Auto) 0.1 Neut # 8.7 H Lymph # 1.6 Weston # 1.7 Eos # 0.1 Baso # 0.0 Puncture Site Rrad O2 Saturation 96.0 ABG pH 7.400 ABG pCO2 37.3 ABG pO2 81.0 L ABG HCO3 23.1 ABG Total CO2 24 ABG Base Excess -2 Nikos Test + O2 Delivery Device Nc Oxygen Liter Flow 2.50 Sodium 136 Potassium 4.1 Chloride 103 Carbon Dioxide 21 Anion Gap 16.1 BUN 16 Creatinine 0.76 Estimated GFR (MDRD) 106.00 BUN/Creatinine Ratio 21.05 Glucose 106 H Calcium 9.5 Total Bilirubin < 0.3 AST 13 L ALT 23 Alkaline Phosphatase 67 Total Protein 7.1 Albumin 3.8 Globulin 3.3 Albumin/Globulin Ratio 1.15 Procalcitonin 08/14/17 16:07 WBC RBC Hgb Hct MCV MCH MCHC RDW Coeff of Sameer Plt Count Immature Gran % (Auto) Neut % (Auto) Lymph % (Auto) Weston % (Auto) Eos % (Auto) Baso % (Auto) Immature Gran # (Auto) Neut # Lymph # Weston # Eos # Baso # Puncture Site O2 Saturation ABG pH ABG pCO2 ABG pO2 ABG HCO3 ABG Total CO2 ABG Base Excess Nikos Test O2 Delivery Device Oxygen Liter Flow Sodium Potassium Chloride Carbon Dioxide Anion Gap BUN Creatinine Estimated GFR (MDRD) BUN/Creatinine Ratio Glucose Calcium Total Bilirubin AST ALT Alkaline Phosphatase Total Protein Albumin Globulin Albumin/Globulin Ratio Procalcitonin < 0.05 Orders Category Date Time Status ABG DRAW REQUEST Stat CARDIO 08/14/17 15:54 Completed EKG-(ED ONLY) Stat CARDIO 08/14/17 15:53 Completed NEBULIZER TREATMENT Stat CARDIO 08/14/17 15:54 Completed ABG Stat LAB 08/14/17 15:54 Completed BLOOD CULTURE Stat LAB 08/14/17 16:07 Ordered CBC W/ AUTO DIFF Stat LAB 08/14/17 16:07 Completed COMPREHENSIVE METABOLIC PANEL Stat LAB 08/14/17 16:07 Completed PROCALCITONIN Stat LAB 08/14/17 16:07 Completed Ipratropium/Albuterol Neb [Duoneb] MEDS 08/14/17 15:54 Discontinued 1 vial NEB ONCE STA CHEST, 2 VIEWS PA & LAT Stat RADS 08/14/17 15:52 Taken Medications Discontinued Medications Generic Name Dose Route Start Last Admin Trade Name Lucita PRN Reason Stop Dose Admin Albuterol/Ipratropium 1 vial 08/14/17 15:54 08/14/17 16:35 Duoneb NEB 08/14/17 15:55 1 vial ONCE STA Administration Vital Signs: Temp Pulse Resp BP Pulse Ox 08/14/17 15:30 98.6 F 107 H 24 137/81 93 L Departure - Departure Time of Disposition: 17:30 Disposition: PLACED OBSERVATION Discharge Problem: COPD exacerbation Instructions: COPD (Chronic Obstructive Pulmonary Disease) (ED) Condition: Good Pt referred to PMD for follow-up: Yes IPMP verified?: No Additional Instructions: Please call your Family Physician as soon as possible to schedule a follow-up appointment. Allergies/Adverse Reactions: Allergies gabapentin Allergy (Mild, Verified 08/14/17 15:51) heartburn , nausea acyclovir Allergy (Verified 08/14/17 15:51) Home Medications: Ambulatory Orders Hydrocodone/Acetaminophen [[place] 10-325 Tablet] 1 tab PO TID 03/02/13 Roflumilast [Daliresp] 500 mcg PO DAILY 02/28/16 Diphenhydramine HCl [Benadryl] 50 mg PO BEDTIME 01/10/17 Disposition Discussed With: Patient
--- NOTE | 2017-08-14 17:05 | DI ---
EXAM: PA and lateral views the chest HISTORY: Cough COMPARISON: 01/10/2017 FINDINGS: The lungs are mildly hyperexpanded. There is minimal left basilar atelectasis. No focal consolidati on, pleural effusion or pneumothorax is seen. The cardiomediastinal silhouette is within normal limits. Degenerative changes of the thoracic spine are seen. There is remote anterior wedging of a mid thora cic vertebral body. IMPRESSION: No acute cardiopulmonary findings. Minimal left basilar atelectasis. Hyperexpanded lungs suggesting chronic obstructive pulmonary disease.
[2017-08-14] MEDS ORDERED: SODIUM CHLORIDE 1,000 ML IV STA (17:24)
[2017-08-14] MEDS ORDERED: LEVAQUIN 500 MG PO SCH (17:30)
[2017-08-14] MEDS ORDERED: COREG PO SCH (17:30)
[2017-08-14] MEDS: DUONEB NEB SCH ×2 (18:25→23:59)
[2017-08-14 18:59] VITALS: BMI 38.0
[2017-08-14] MEDS ORDERED: PROAIR HFA IH PRN (19:48)
[2017-08-14] MEDS ORDERED: HUMULIN R SUBCUT PRN (19:56)
[2017-08-14] MEDS: ALBUTEROL 0.083% NEB NEB PRN (20:25)
[2017-08-14] MEDS ORDERED: ATIVAN PO STA (20:34)
[2017-08-14] MEDS ORDERED: PREDNISONE PO SCH (21:00)
[2017-08-14] MEDS ORDERED: TAMIFLU PO SCH (21:00)
[2017-08-14] MEDS ORDERED: CARDIZEM PO SCH (21:00)
[2017-08-14] MEDS ORDERED: GLUCOPHAGE PO SCH (21:00)
[2017-08-14] MEDS ORDERED: NORCO 10-325 PO STA (23:58)
[2017-08-15] MEDS ORDERED: NORCO 10-325 ONE (00:04)
[2017-08-15] MEDS: DUONEB NEB SCH ×5 (06:05→22:04)
[2017-08-15] MEDS ORDERED: NON-FORMULARY MEDICATION (Omeprazole [Omeprazole] 40 MG) PO SCH (06:30)
[2017-08-15] MEDS: ALBUTEROL 0.083% NEB NEB PRN (07:34)
[2017-08-15] MEDS ORDERED: PREDNISONE PO SCH (08:00)
[2017-08-15] MEDS ORDERED: COREG PO SCH (08:00)
[2017-08-15] MEDS ORDERED: NON-FORMULARY MEDICATION (Metformin Hcl [Glucophage] 1,000 MG) PO SCH (08:00)
[2017-08-15] MEDS ORDERED: NON-FORMULARY MEDICATION (Lisinopril [Lisinopril] 2.5 MG) PO SCH (09:00)
[2017-08-15] MEDS ORDERED: LIPITOR PO SCH (09:00)
[2017-08-15] MEDS ORDERED: TAMIFLU PO SCH (09:00)
[2017-08-15] MEDS ORDERED: CARDIZEM PO SCH (09:00)
[2017-08-15] MEDS ORDERED: NON-FORMULARY MEDICATION (Bupropion Hcl [Wellbutrin Xl] 150 MG) PO SCH (09:00)
[2017-08-15] MEDS ORDERED: NORCO 10-325 PO SCH (09:00)
[2017-08-15] MEDS ORDERED: DALIRESP PO SCH ×2 (09:00→09:30)
[2017-08-15] MEDS ORDERED: SYMBICORT 160-4.5 MCG INHALER IH SCH (09:00)
[2017-08-15] MEDS ORDERED: PRILOSEC PO SCH (09:30)
[2017-08-15] MEDS ORDERED: PROAIR HFA IH PRN (09:30)
[2017-08-15] MEDS: CARDIZEM PO SCH ×2 (10:03→22:07)
[2017-08-15] MEDS: MUCINEX PO SCH ×2 (10:03→22:06)
[2017-08-15] MEDS: COREG PO SCH ×2 (10:03→17:16)
[2017-08-15] MEDS: ZESTRIL PO SCH (10:04)
[2017-08-15] MEDS: TAMIFLU PO SCH ×2 (10:06→22:07)
[2017-08-15] MEDS: SYMBICORT 160-4.5 MCG INHALER IH SCH ×2 (10:06→22:06)
[2017-08-15] MEDS: LIPITOR PO SCH (10:07)
[2017-08-15] MEDS: GLUCOPHAGE PO SCH ×2 (10:07→17:34)
[2017-08-15] MEDS: SOLU-MEDROL 40 MG IVP SCH ×3 (10:09→22:39)
[2017-08-15] MEDS: ROCEPHIN 1 GM in SODIUM CHLORIDE 50 ML IV SCH (10:09)
[2017-08-15] MEDS ORDERED: ATIVAN PO PRN (10:56)
[2017-08-15] MEDS ORDERED: ATIVAN ONE (11:02)
[2017-08-15] MEDS: DALIRESP PO SCH (14:01)
[2017-08-15] MEDS: NORCO 10-325 PO SCH ×2 (14:02→22:07)
[2017-08-15] MEDS: PRILOSEC PO SCH (17:16)
[2017-08-15] MEDS: HUMULIN R SUBCUT PRN (17:37)
[2017-08-15] MEDS ORDERED: GLUCOPHAGE PO SCH (21:00)
[2017-08-16] MEDS: DUONEB NEB SCH ×6 (01:46→21:14)
[2017-08-16] MEDS: SOLU-MEDROL 40 MG IVP SCH ×3 (05:30→22:01)
[2017-08-16] MEDS: LIPITOR PO SCH (09:02)
[2017-08-16] MEDS: NORCO 10-325 PO SCH ×3 (09:02→21:08)
[2017-08-16] MEDS: GLUCOPHAGE PO SCH ×2 (09:02→17:45)
[2017-08-16] MEDS: ZESTRIL PO SCH (09:03)
[2017-08-16] MEDS: CARDIZEM PO SCH ×2 (09:03→21:09)
[2017-08-16] MEDS: MUCINEX PO SCH ×2 (09:03→21:08)
[2017-08-16] MEDS: SYMBICORT 160-4.5 MCG INHALER IH SCH ×2 (09:04→21:08)
[2017-08-16] MEDS: ROCEPHIN 1 GM in SODIUM CHLORIDE 50 ML IV SCH (09:04)
[2017-08-16] MEDS: COREG PO SCH ×2 (09:04→17:45)
[2017-08-16] MEDS: HUMULIN R SUBCUT PRN ×3 (12:43→21:09)
[2017-08-16] MEDS: DALIRESP PO SCH (14:31)
[2017-08-16] MEDS: PRILOSEC PO SCH (17:46)
[2017-08-16] MEDS ORDERED: ALBUTEROL 0.083% NEB NEB PRN (21:57)
[2017-08-16 22:18] VITALS: TEMP 97.9
[2017-08-17] MEDS: DUONEB NEB SCH ×2 (01:41→05:20)
[2017-08-17] MEDS: SOLU-MEDROL 40 MG IVP SCH (05:02)
[2017-08-17 05:26] VITALS: BP 120/75
[2017-08-17] MEDS: HUMULIN R SUBCUT PRN (05:57)
[2017-08-17] MEDS: SYMBICORT 160-4.5 MCG INHALER IH SCH (09:17)
[2017-08-17] MEDS: COREG PO SCH (09:18)
[2017-08-17] MEDS: CARDIZEM PO SCH (09:18)
[2017-08-17] MEDS: GLUCOPHAGE PO SCH (09:19)
[2017-08-17] MEDS: LIPITOR PO SCH (09:19)
[2017-08-17] MEDS: NORCO 10-325 PO SCH (09:20)
[2017-08-17] MEDS: MUCINEX PO SCH (09:20)
[2017-08-17] MEDS: ZESTRIL PO SCH (09:20)
[2017-08-17] MEDS: ROCEPHIN 1 GM in SODIUM CHLORIDE 50 ML IV SCH (09:22)
--- NOTE | 2017-08-17 14:19 | HP ---
DATE OF SERVICE: 08/14/17 CHIEF COMPLAINT: Shortness of breath and coughing. HISTORY OF PRESENT ILLNESS: This is a 57-year-old male with history of COPD, was diagnosed with Influenza B on 08/11/17. He was started on the medication but started coughing with congestion. Shortness of breath is getting worse. He is taking home inhalers and breathing treatment which are not helping the patient. Shortness of breath is getting worse. He came to the emergency room and was seen by Dr. Panchal in the emergency room. White count has left shift 12.1. ABG showed pH 7.40, pc02 37.3, p02 81. CMP was normal. Chest x-ray negative. As the patient was still having wheezing and shortness of breath, chest x-ray shows minimal left basilar atelectasis. At that time, the patient was admitted to the hospital for breathing treatments, IV antibiotics and IV fluids. REVIEW OF SYSTEMS: CONSTITUTIONAL: Weakness, tiredness. No fever, no chills. HEENT: Normal. ENDOCRINE: No weight gain; no weight loss. CVS: No chest pain. No PND, no orthopnea. No shortness of breath. No PND, no orthopnea. RESPIRATORY: Cough and congestion with yellow-green phlegm. No hemoptysis. GI: No nausea, no vomiting. No abdominal pain. No melena. : No hematuria. No polyuria. MUSCULOSKELETAL: Hurting all over. PSYCHIATRIC: Not anxious. No depression. No suicidal thoughts. No homicidal thoughts. SKIN: Intact, no open lesions. PAST MEDICAL HISTORY: COPD, oxygen dependent Hypertension Dyslipidemia History of SVT Palpitations COPD Sleep apnea on CPAP Hiatal hernia Osteoarthritis DJD Depression Diabetes Anxiety PAST SURGICAL HISTORY: Hernia repair times three Tonsillectomy PERSONAL HISTORY: lives with his kids. Quit smoking four months ago. No alcohol use. No illicit drug use. FAMILY HISTORY: Not significant as the patient is adopted. MEDICATIONS: (HOME) [place] Daliresp ProAir Benadryl Omeprazole Symbicort Diltiazem Metformin Coreg Duonebs Lisinopril Atorvastatin Levaquin Prednisone Tamiflu ALLERGIES: NEURONTIN AND ACYCLOVIR PHYSICAL EXAMINATION: GENERAL: Sick-looking male lying in bed. V/S: BP 137/81, respiratory rate 24, heart rate 107, temperature 98.6, saturation 93 on 2L. HEENT: Atraumatic, normocephalic. No scleral icterus. Pallor positive . Mucosa dry . NECK: Supple. No JVD, no bruit. No lymphadenopathy. No thyromegaly. HEART: S1, S2 normal. No murmur. No cyanosis or clubbing. No ascites. LUNGS: Expiratory wheeze all over chest. No rales or rhonchi. ABDOMEN: Soft, nontender. Bowel sounds are active. No CVA tenderness. No rigidity or guarding. EXTREMITIES: No pedal edema. No cyanosis or clubbing MUSCULOSKELETAL: Normal joints, no swelling. NEUROLOGIC: The patient is SKIN: Intact; no open lesions. LYMPHATIC: No lymph nodes palpable. LABS: Sodium 136, potassium 4.1, chloride 103, bicarb 27, BUN 16, creatinine 0.76. White count 12.21, hemoglobin 14.2, hematocrit 42.6, platelet count 319. ASSESSMENT: 1. COPD EXACERBATION SECONDARY TO BRONCHITIS AND LEFT LOWER LOBE ATELECTASIS 2. INFLUENZA B PRESENT 3. DIABETES 4. HYPERTENSION 5. HISTORY OF SVT 6. HYPERTENSION 7. DYSLIPIDEMIA PLAN: 1. Admit patient to the regular floor 2. CBC, CMP today and daily 3. Cardiac enzymes and troponin 4. Levaquin IV push 5. Duonebs 6. Solu-Medrol TIME SPENT: MORE THAN 75 minutes MTDD
--- NOTE | 2017-08-18 10:34 | PN ---
DATE OF SERVICE: 08/15/17 SUBJECTIVE: Cough and congestion is still present. He is upset that his medications were not given on time in the hospital. Coughing and hurting all over the body. REVIEW OF SYSTEMS: CONSTITUTIONAL: No fever, no chills. HEENT: Normal. ENDOCRINE: No weight gain, no weight loss. CVS: No angina symptoms. No CHF symptoms. No palpitations. No atypical chest pain for CAD. No shortness of breath. No PND, no orthopnea. RESPIRATORY: Positive for cough. No hemoptysis. GI: No nausea, no vomiting. No abdominal pain. : No hematuria. No polyuria. MUSCULOSKELETAL: Hurting all over body. PSYCHIATRIC: Not anxious. No depression. No suicidal thoughts. No homicidal thoughts. SKIN: Intact. No rash. PHYSICAL EXAMINATION: V/S: BP 137/81, heart rate 100, temperature 98.5, saturation 96 on 2L. HEENT: Normocephalic, atraumatic. Mucosa dry. NECK: Supple. No JVD, no carotid bruit. No lymphadenopathy. LUNGS: Decreased basilar crackles. Expiratory wheeze all over. No rales or rhonchi. HEART: S1, S2 normal. No S3. No murmur, gallop or regurgitation. ABDOMEN: Soft, nontender. Bowel sounds active. No rigidity. No rebound or guarding. No CVA tenderness. EXTREMITIES: No pedal edema. No clubbing or cyanosis MUSCULOSKELETAL: No joint swelling. NEUROLOGIC: Awake, alert, oriented times three. No focal deficit. LYMPHATIC: No lymph nodes palpable. SKIN: Intact. LABS: Sodium 136, potassium 4.1, chloride 103, bicarb 21, BUN 16, creatinine 0.76. White count 12.21, hemoglobin 14.3, hematocrit 42.6, platelet count 319. ASSESSMENT: 1. COPD EXACERBATION SECONDARY TO LEFT LOWER LOBE PNEUMONIA/ATELECTASIS 2. INFLUENZA B 3. HISTORY OF SVT 4. HYPERTENSION 5. DIABETES 6. DEPRESSION 7. SLEEP APNEA ON CPAP PLAN: 1. Rocephin 1 gm daily 2. Solu-Medrol 40 q.8hr 3. Continue breathing treatments 4. Daily I & O's 5. Lovenox for DVT prophylaxis TIME SPENT: More than 35 minutes MTDD
--- NOTE | 2017-08-26 13:54 | PN ---
DATE OF SERVICE: 08/16/17 SUBJECTIVE: The patient with COPD exacerbation, left lower lobe atelectasis and pneumonia. Still cough, congestion and shortness of breath with minimal exertion. REVIEW OF SYSTEMS: CONSTITUTIONAL: No fever, no chills. HEENT: Normal. ENDOCRINE: No weight gain, no weight loss. CVS: No angina symptoms. No CHF symptoms. No palpitations. No atypical chest pain for CAD. Shortness of breath. No PND, no orthopnea. RESPIRATORY: Cough, no hemoptysis. GI: No nausea, no vomiting. No abdominal pain. : No hematuria. No polyuria. MUSCULOSKELETAL: No joint swelling. PSYCHIATRIC: Not anxious. No depression. No suicidal thoughts. No homicidal thoughts. SKIN: Intact. No rash. PHYSICAL EXAMINATION: V/S: Blood pressure 127/76, respiratory rate 17, heart rate 101, temperature 98 and saturation 94 on 2 liters. HEENT: Normocephalic, atraumatic. Mucosa dry. Pallor positive. No icterus. NECK: Supple. No JVD, no carotid bruit. No lymphadenopathy. LUNGS: Decreased and basilar crackles with mild expiratory wheeze. Clear to auscultation. No rales or rhonchi. HEART: S1, S2 normal. No S3. No murmur, gallop or regurgitation. ABDOMEN: Soft, nontender. Bowel sounds active. No rigidity. No rebound or guarding. No CVA tenderness. EXTREMITIES: No pedal edema. No clubbing or cyanosis MUSCULOSKELETAL: No joint swelling. NEUROLOGIC: Awake, alert, oriented times three. No focal deficit. LYMPHATIC: No lymph nodes palpable. SKIN: Intact. LABS: Sodium 136, potassium 4.1, chloride 103, bicarb 21, BUN 16, creatinine 0.76, WBC 12.21, hgb 14.2, hct 42.6 and plt count 319. ASSESSMENT: 1. COPD exacerbation secondary to the left lower lobe pneumonia 2. COPD oxygen dependant 3. Hypertension 4. History of SVT 5. Diabetes 6. Obesity 7. DJD spine 8. Osteoarthritis 9. History of leukocytosis PLAN: 1. Continue the Rocephin, Solu-Medrol and DUO NEBS 2. Out of bed to chair activity as tolerated TIME SPENT: More than 35 minutes MTDD
--- NOTE | 2017-08-26 14:10 | DS ---
DATE OF SERVICE: 08/17/17 FINAL DIAGNOSIS: 1. COPD exacerbation secondary to the left lower lobe pneumonia 2. Influenza B 3. COPD oxygen dependant 4. Diabetes type 2 5. Hypertension 6. Dyslipidemia 7. GERD 8. Sleep apnea 9. Osteoarthritis 10.Colonoscopy 11.Previous smoker, stopped 4 months ago DISCHARGE INSTRUCTIONS: Discharge the patient home. Continue the rest of the home medication. MEDICATIONS AT DISCHARGE: Albuterol Atorvastatin Symbicort Coreg Cardizem Benadryl Hydrocodone DUO NEBS Lisinopril Glucophage Omeprazole Prednisone NEW PRESCRIPTIONS: Keflex 500mg twice a day for 5 days Prednisone 10mg twice a day for 5 day. DIET INSTRUCTIONS: Cardiac and healthy, diabetic ACTIVITY: As much as tolerated SMOKING: Former smoker DISEASE SPECIFIC EDUCATION: COPD Needing for pneumonia vaccination COPD exacerbation Breathing treatments Antibiotic use diarrhea as a side effect been discussed. HOSPITAL COURSE: Brenton Adrian 57 year old male with history of Severe COPD oxygen dependant came to the [facility] initially, seen by Hailey Burnett on 08/11/17 found to be positive for Flu B. Started on Tamiflu and steroids, not feeling good and not getting better. Worsening of cough, congestion and shortness of breath so went to the emergency room and seen by the ER physician Dr. Panchal. pH 7.4, pCo2 37.3 and pO2 31. Despite given the breathing treatment the patient was still short of breath and chest x-ray showed left lower lobe atelectasis. At that time the patient was admitted to the hospital and started on the IV antibiotic Rocephin, Solu-Medrol and breathing treatment which did help the patient. Within two days the patient was up and about walking and less short of breath with no fever or chills. The hospital course was uneventful. As patient was doing good and up and about and walking the patient being discharged home today. TIME SPENT: MORE THAN 65 MINUTES MTDD
== END 2017-08-17 09:35 | disposition home or self-care (01) | DRG 194 ==
LOC: ED 15:29 → MEDSURG B 17:48 → OBSVTOIN 08-15 09:04
PROVIDERS: ADMIT Emergency Medicine; ATTEND Emergency Medicine
DX: J18.9 Pneumonia, unspecified organism (principal); J98.11 Atelectasis; J44.1 Chronic obstructive pulmonary disease with (acute) exacerbation; I47.1 Supraventricular tachycardia; J10.1 Influenza due to other identified influenza virus with other respiratory manifestations; E11.9 Type 2 diabetes mellitus without complications; I10 Essential (primary) hypertension; R06.02 Shortness of breath; D72.829 Elevated white blood cell count, unspecified; E78.5 Hyperlipidemia, unspecified; K21.9 Gastro-esophageal reflux disease without esophagitis; G47.30 Sleep apnea, unspecified; M47.9 Spondylosis, unspecified; M19.90 Unspecified osteoarthritis, unspecified site; E66.9 Obesity, unspecified; Z79.84 Long term (current) use of oral hypoglycemic drugs; Z79.899 Other long term (current) drug therapy; Z87.891 Personal history of nicotine dependence; Z99.81 Dependence on supplemental oxygen
CPT/HCPCS: 36415; 80053; 82803; 82962; 84145; 85025; 87040; 93005; 93010; 94640; 99284

== ENCOUNTER 2017-08-26 14:43 | Inpatient (IN) ==
[2017-08-26 15:21] VITALS: BMI 37.8
--- NOTE | 2017-08-26 16:36 | CT ---
EXAM: CT THORAX HISTORY: Shortness of breath. TECHNIQUE: CT thorax without intravenous contrast. Multiplanar images presented. COMPARISON: 04/25/2017 FINDINGS: Normal heart size. Trace pericardial effusion. Thoracic aorta is within normal limits. A few nonspe cific mediastinal and hilar lymph nodes are stable. There is a thin band of discoid consolidation in the posterior left lung base which is new or increas ed since the previous exam. Mild linear scarring is noted in the posterior right lung base. Lungs a re otherwise unremarkable. Normal vascularity. No pleural fluid. The bones and reveal moderate degenerative changes of the spine with mild scoliosis. IMPRESSION: 1. There is a thin band of discoid consolidation in the posterior left lung base which is new or inc reased since previous exam and could represent focal pneumonia given the patient's history. Other con siderations would include scarring or atelectasis. Unlikely neoplasia. Follow-up CT can be consider ed to assure resolution. 2. Nonspecific mediastinal lymph nodes appear stable.
[2017-08-26] MEDS: ROCEPHIN 1 GM in SODIUM CHLORIDE 50 ML IV SCH (17:08)
[2017-08-26] MEDS: SODIUM CHLORIDE 1,000 ML IV SCH (17:08)
[2017-08-26] MEDS: ZITHROMAX PO SCH (17:08)
[2017-08-26] MEDS: SOLU-MEDROL 125 MG IVP SCH ×2 (17:08→22:24)
[2017-08-26] MEDS: LOVENOX SUBCUT SCH (17:09)
[2017-08-26] MEDS: COREG PO SCH (17:27)
[2017-08-26] MEDS ORDERED: DUONEB NEB SCH (18:00)
[2017-08-26] MEDS: BENADRYL PO SCH (20:51)
[2017-08-26] MEDS: SYMBICORT 160-4.5 MCG INHALER IH SCH (20:51)
[2017-08-26] MEDS: CARDIZEM PO SCH (20:51)
[2017-08-26] MEDS: GLUCOPHAGE PO SCH (20:51)
[2017-08-26] MEDS: NORCO 10-325 PO SCH (20:51)
[2017-08-26] MEDS: DUONEB NEB SCH (23:16)
[2017-08-27] MEDS: DUONEB NEB SCH ×6 (02:00→21:45)
[2017-08-27] MEDS: PRILOSEC PO SCH (06:11)
[2017-08-27] MEDS: SOLU-MEDROL 125 MG IVP SCH ×3 (07:22→21:22)
[2017-08-27] MEDS: SYMBICORT 160-4.5 MCG INHALER IH SCH ×2 (08:59→21:23)
[2017-08-27] MEDS: ROCEPHIN 1 GM in SODIUM CHLORIDE 50 ML IV SCH (08:59)
[2017-08-27] MEDS ORDERED: NON-FORMULARY MEDICATION (Omeprazole [Omeprazole] 40 MG) PO SCH (09:00)
[2017-08-27] MEDS ORDERED: NON-FORMULARY MEDICATION (Lisinopril [Lisinopril] 2.5 MG) PO SCH (09:00)
[2017-08-27] MEDS ORDERED: NON-FORMULARY MEDICATION (Metformin Hcl [Glucophage] 1,000 MG) PO SCH (09:00)
[2017-08-27] MEDS: ZITHROMAX PO SCH (09:01)
[2017-08-27] MEDS: NORCO 10-325 PO SCH ×3 (09:01→21:24)
[2017-08-27] MEDS: ZESTRIL PO SCH (09:02)
[2017-08-27] MEDS: GLUCOPHAGE PO SCH ×2 (09:03→21:24)
[2017-08-27] MEDS: LIPITOR PO SCH (09:03)
[2017-08-27] MEDS: DALIRESP PO SCH (09:03)
[2017-08-27] MEDS: CARDIZEM PO SCH ×2 (09:04→21:24)
[2017-08-27] MEDS: COREG PO SCH ×2 (09:04→17:14)
[2017-08-27] MEDS: LOVENOX SUBCUT SCH (09:05)
[2017-08-27] MEDS: SODIUM CHLORIDE 1,000 ML IV SCH (17:32)
[2017-08-27] MEDS: HUMULIN R SUBCUT PRN ×2 (17:33→21:22)
[2017-08-27] MEDS: BENADRYL PO SCH (21:24)
[2017-08-28] MEDS: DUONEB NEB SCH ×8 (02:00→21:50)
[2017-08-28] MEDS: PRILOSEC PO SCH (05:57)
[2017-08-28] MEDS: SOLU-MEDROL 125 MG IVP SCH ×3 (05:58→21:03)
[2017-08-28] MEDS: HUMULIN R SUBCUT PRN ×4 (06:02→21:02)
[2017-08-28] MEDS: ROCEPHIN 1 GM in SODIUM CHLORIDE 50 ML IV SCH (08:48)
[2017-08-28] MEDS: SYMBICORT 160-4.5 MCG INHALER IH SCH ×2 (08:50→21:03)
[2017-08-28] MEDS: LIPITOR PO SCH (08:50)
[2017-08-28] MEDS: GLUCOPHAGE PO SCH ×2 (08:51→21:02)
[2017-08-28] MEDS: ZITHROMAX PO SCH (08:51)
[2017-08-28] MEDS: DALIRESP PO SCH (08:52)
[2017-08-28] MEDS: COREG PO SCH ×2 (08:52→17:07)
[2017-08-28] MEDS: CARDIZEM PO SCH ×2 (08:52→21:02)
[2017-08-28] MEDS: ZESTRIL PO SCH (08:52)
[2017-08-28] MEDS: NORCO 10-325 PO SCH ×3 (08:52→21:02)
[2017-08-28] MEDS: LOVENOX SUBCUT SCH (08:53)
[2017-08-28] MEDS: SODIUM CHLORIDE 1,000 ML IV SCH (18:28)
[2017-08-28] MEDS: ATIVAN PO SCH (21:02)
[2017-08-28] MEDS: BENADRYL PO SCH (21:02)
[2017-08-29] MEDS: DUONEB NEB SCH ×7 (02:00→21:45)
[2017-08-29] MEDS: HUMULIN R SUBCUT PRN ×4 (05:33→22:23)
[2017-08-29] MEDS: PRILOSEC PO SCH (05:33)
[2017-08-29] MEDS: SOLU-MEDROL 125 MG IVP SCH (05:34)
[2017-08-29] MEDS: COREG PO SCH ×2 (10:01→17:53)
[2017-08-29] MEDS: DALIRESP PO SCH (10:01)
[2017-08-29] MEDS: CARDIZEM PO SCH ×2 (10:01→22:01)
[2017-08-29] MEDS: GLUCOPHAGE PO SCH ×2 (10:01→22:01)
[2017-08-29] MEDS: ZESTRIL PO SCH (10:02)
[2017-08-29] MEDS: LIPITOR PO SCH (10:02)
[2017-08-29] MEDS: NORCO 10-325 PO SCH ×3 (10:02→22:00)
[2017-08-29] MEDS: SYMBICORT 160-4.5 MCG INHALER IH SCH ×2 (10:03→22:00)
[2017-08-29] MEDS: LOVENOX SUBCUT SCH (10:04)
[2017-08-29] MEDS: KEFLEX PO SCH ×2 (12:39→22:01)
[2017-08-29] MEDS: PREDNISONE PO SCH (17:53)
[2017-08-29] MEDS: SODIUM CHLORIDE 1,000 ML IV SCH (17:55)
[2017-08-29] MEDS: BENADRYL PO SCH (22:01)
[2017-08-29] MEDS: ATIVAN PO SCH (22:01)
[2017-08-30] MEDS: DUONEB NEB SCH ×4 (05:53→14:08)
[2017-08-30] MEDS: KEFLEX PO SCH ×2 (06:15→12:30)
[2017-08-30] MEDS: PRILOSEC PO SCH (06:16)
[2017-08-30] MEDS ORDERED: LASIX IVP STA (08:34)
--- NOTE | 2017-08-30 09:15 | PN ---
DATE OF SERVICE: 08/27/17 SUBJECTIVE: The patient was admitted through the office yesterday for the COPD exacerbation and lower lobe pneumonia. REVIEW OF SYSTEMS: CONSTITUTIONAL: No fever, no chills. HEENT: Normal. ENDOCRINE: No weight gain, no weight loss. CVS: No angina symptoms. No CHF symptoms. No palpitations. No atypical chest pain for CAD. Shortness of breath. No PND, no orthopnea. RESPIRATORY: Cough and congestion not able to get any phlegm, no hemoptysis. GI: No nausea, no vomiting. No abdominal pain. : No hematuria. No polyuria. MUSCULOSKELETAL: No joint swelling. PSYCHIATRIC: Not anxious. No depression. No suicidal thoughts. No homicidal thoughts. SKIN: Intact. No rash. PHYSICAL EXAMINATION: V/S: Blood pressure 127/80, respiratory rate 20, heart rate 108, Temperature 98.0 with saturation is 96% on 2 liters. HEENT: Normocephalic, atraumatic. Mucosa dry. NECK: Supple. No JVD, no carotid bruit. No lymphadenopathy. LUNGS: Decreased and basilar crackles. Mild expiratory wheezing all over. Clear to auscultation. No rales or rhonchi. HEART: S1, S2 normal. No S3. No murmur, gallop or regurgitation. ABDOMEN: Soft, nontender. Bowel sounds active. No rigidity. No rebound or guarding. No CVA tenderness. EXTREMITIES: No pedal edema. No clubbing or cyanosis MUSCULOSKELETAL: No joint swelling. NEUROLOGIC: Awake, alert, oriented times three. No focal deficit. LYMPHATIC: No lymph nodes palpable. SKIN: Intact. LABS: WBC 17.89, hgb 13.4, hct 39.7, plt count 234, sodium 136, potassium 4.3, chloride 104, bicarb 21, BUN 15, creatinine 0.78, glucose 189. ASSESSMENT: 1. COPD exacerbation secondary to the pneumonia, left lower lobe. 2. Leukocytosis secondary to the pneumonia 3. Diabetes 4. Hypertension 5. Dyslipidemia 6. Sleep apnea on CPAP 7. Depression 8. Anxiety PLAN: 1. Continue Azithromycin 2. Rocephin 3. DUO NEBS 4. Lovenox 5. IV fluids 6. Solu-Medrol 80mg Q 8 hours. TIME SPENT: More than 35 minutes MTDD
[2017-08-30] MEDS: DALIRESP PO SCH (09:19)
[2017-08-30] MEDS: NORCO 10-325 PO SCH (09:19)
[2017-08-30] MEDS: PREDNISONE PO SCH (09:19)
[2017-08-30] MEDS: COREG PO SCH (09:20)
[2017-08-30] MEDS: CARDIZEM PO SCH (09:20)
[2017-08-30] MEDS: LIPITOR PO SCH (09:20)
[2017-08-30] MEDS: ZESTRIL PO SCH (09:20)
[2017-08-30] MEDS: GLUCOPHAGE PO SCH (09:20)
[2017-08-30] MEDS: SYMBICORT 160-4.5 MCG INHALER IH SCH (09:21)
[2017-08-30] MEDS: LOVENOX SUBCUT SCH (09:23)
--- NOTE | 2017-08-30 09:41 | PN ---
DATE OF SERVICE: 08/28/17 SUBJECTIVE: The patient was admitted with COPD exacerbation, left lower basilar pneumonia. The patient has a lot of questions and concerns. The patient was checking his sugars and saying that it was more than 250 but we are following the AC and HS, says he does not like it and he wants it his way. REVIEW OF SYSTEMS: CONSTITUTIONAL: No fever, no chills. HEENT: Normal. ENDOCRINE: No weight gain, no weight loss. CVS: No angina symptoms. No CHF symptoms. No palpitations. No atypical chest pain for CAD. No shortness of breath. No PND, no orthopnea. RESPIRATORY: Cough and congestion is better, no hemoptysis. GI: No nausea, no vomiting. No abdominal pain. : No hematuria. No polyuria. MUSCULOSKELETAL: No joint swelling. PSYCHIATRIC: Not anxious. No depression. No suicidal thoughts. No homicidal thoughts. SKIN: Intact. No rash. PHYSICAL EXAMINATION: V/S: Blood pressure 117/65, respiratory rate 20, heart rate 98, temperature 97.7 and saturation 97. HEENT: Normocephalic, atraumatic. Mucosa dry. Pallor positive. No icterus. NECK: Supple. No JVD, no carotid bruit. No lymphadenopathy. LUNGS: Decreased and basilar crackles. Clear to auscultation. No rales or rhonchi. HEART: S1, S2 normal. No S3. No murmur, gallop or regurgitation. ABDOMEN: Soft, nontender. Bowel sounds active. No rigidity. No rebound or guarding. No CVA tenderness. EXTREMITIES: No pedal edema. No clubbing or cyanosis MUSCULOSKELETAL: No joint swelling. NEUROLOGIC: Awake, alert, oriented times three. No focal deficit. LYMPHATIC: No lymph nodes palpable. SKIN: Intact. LABS: WBC 26.55, hgb 13.5, hct 40.1, plt count 280, sodium 138, potassium 4.1, chloride 104, bicarb 19, BUN 14, creatinine 0.80 and glucose 207. ASSESSMENT: 1. COPD exacerbation secondary to the community acquired pneumonia, left lower lobe 2. COPD oxygen dependant 3. Diabetes 4. Leukocytosis secondary most like from the steroids 5. History of SVT 6. Hypertension 7. Dyslipidemia 8. Osteoarthritis 9. DJD spine PLAN: 1. Continue the Rocephin, Azithromycin, DUO NEBS and Solu-Medrol 2. Accu-checks with coverage 3. The patient requested that he doesn't want to be doing any vitals after 11: 00pm tonight so that he can sleep well 4. Will get chest x-ray in the morning. TIME SPENT: More than 35 minutes MTDD
--- NOTE | 2017-08-30 10:28 | US ---
EXAM: Right lower extremity venous Doppler History: Right lower extremity edema. Technique: Multiple sonographic images through the right lower extremity were obtained. Color duple x Doppler was used to interrogate vascular flow. Findings: The right common femoral, greater saphenous, profunda, superficial femoral, popliteal, per collazo, posterior tibial and anterior tibial veins demonstrate spontaneous flow with normal compressio n normal augmentation. Impression: No sonographic evidence for deep venous thrombosis.
[2017-08-30] MEDS: SODIUM CHLORIDE 1,000 ML IV SCH (11:57)
[2017-08-30] MEDS: HUMULIN R SUBCUT PRN (12:30)
[2017-08-30 14:08] VITALS: BP 124/73; TEMP 99
--- NOTE | 2017-09-23 15:02 | PN ---
DATE OF SERVICE: 08/29/17 SUBJECTIVE: Cough and congestion has improved. He was able to sleep good last night. Otherwise, no fever, chills, PND or orthopnea. REVIEW OF SYSTEMS: CONSTITUTIONAL: No fever, no chills. HEENT: Normal. ENDOCRINE: No weight gain, no weight loss. CVS: No angina symptoms. No CHF symptoms. No palpitations. No atypical chest pain for CAD. No shortness of breath. No PND, no orthopnea. RESPIRATORY: Cough, no hemoptysis. GI: No nausea, no vomiting. No abdominal pain. : No hematuria. No polyuria. MUSCULOSKELETAL: No joint swelling. PSYCHIATRIC: Not anxious. No depression. No suicidal thoughts. No homicidal thoughts. SKIN: Intact. No rash. PHYSICAL EXAMINATION: V/S: Blood pressure 127/72, respiratory rate 18, heart rate 100, temperature 98.6, saturation 98. HEENT: Normocephalic, atraumatic. Mucosa dry. NECK: Supple. No JVD, no carotid bruit. No lymphadenopathy. LUNGS: Decreased basilar crackles. No rales or rhonchi. HEART: S1, S2 normal. No S3. No murmur, gallop or regurgitation. ABDOMEN: Soft, nontender. Bowel sounds active. No rigidity. No rebound or guarding. No CVA tenderness. EXTREMITIES: No pedal edema. No clubbing or cyanosis MUSCULOSKELETAL: No joint swelling. NEUROLOGIC: [Awake, alert, oriented times three. No focal deficit. LYMPHATIC: No lymph nodes palpable. SKIN: Intact. LABS: White count 26.55, hemoglobin 13.5, hematocrit 40.1, platelet count 280, sodium 138, potassium 4.1, chloride 104, bicarb 19, BUN 14, creatinine 0.80, glucose 207. ASSESSMENT: 1. CHRONIC OBSTRUCTIVE PULMONARY DISEASE SECONDARY TO LEFT SIDED PNEUMONIA 2. LEUKOCYTOSIS FROM THE STEROIDS 3. HISTORY OF SVT. 4. HYPERTENSION 5. DYSLIPIDEMIA 6. DIABETES 7. OBESITY 8. OSTEOARTHRITIS 9. DJD OF THE SPINE 10. SLEEP APNEA- ON C-PAP PLAN: 1. Continue Lovenox for the DVT prophylaxis. 2. Keflex 500 mg every 8 hours. 3. Prednisone 10 mg p.o. twice daily. 4. Daily I & O's. 5. Out of bed to chair. 6. Activity as tolerated. TIME SPENT: More than 35 minute MTDD
--- NOTE | 2017-09-23 15:10 | PN ---
DATE OF SERVICE: 08/30/17 SUBJECTIVE: The patient complains about right leg swelling and nontender. The right leg definitely looks bigger than the left leg. Cough and congestion has improved. He still has some shortness of breath. The oxygen has been helping the patient. REVIEW OF SYSTEMS: CONSTITUTIONAL: No fever, no chills. HEENT: Normal. ENDOCRINE: No weight gain, no weight loss. CVS: No angina symptoms. No CHF symptoms. No palpitations. No atypical chest pain for CAD. Shortness of breath. No PND, no orthopnea. RESPIRATORY: Cough, no hemoptysis. GI: No nausea, no vomiting. No abdominal pain. : No hematuria. No polyuria. MUSCULOSKELETAL: No joint swelling. PSYCHIATRIC: Not anxious. No depression. No suicidal thoughts. No homicidal thoughts. SKIN: Intact. No rash. PHYSICAL EXAMINATION: V/S: Blood pressure 135/90, respiratory rate 14, heart rate 87, temperature 98.5 , saturation 100%. HEENT: Normocephalic, atraumatic. Mucosa dry. NECK: Supple. No JVD, no carotid bruit. No lymphadenopathy. LUNGS: Decreased and basilar crackles. Mild expiratory wheeze. No rales or rhonchi. HEART: S1, S2 normal. No S3. No murmur, gallop or regurgitation. ABDOMEN: Soft, nontender. Bowel sounds active. No rigidity. No rebound or guarding. No CVA tenderness. EXTREMITIES: Right lower extremity with 2+ edema and slight calf tenderness. The left leg is normal. No clubbing or cyanosis MUSCULOSKELETAL: No joint swelling. NEUROLOGIC: Awake, alert, oriented times three. No focal deficit. LYMPHATIC: No lymph nodes palpable. SKIN: Intact. LABS: White count 26.55, hemoglobin 13.5, hematocrit 40.1, platelet count 280, sodium 138, potassium 4.1, chloride 104, bicarb 19, BUN 14, creatinine 0.80, glucose 207. ASSESSMENT: 1. RIGHT LOWER EXTREMITY SWELLING AND PAIN, RULE OUT DVT 2. COPD EXACERBATION SECONDARY TO THE PNEUMONIA LEFT LOWER LOBE. 3. HISTORY OF SVT 4. HYPERTENSION 5. DIABETES 6. DYSLIPIDEMIA 7. DEPRESSION PLAN: 1. Venous Doppler right lower extremity. 2. Continue Rocephin, breathing treatments and Solu-Medrol. 3. Daily I & O's. 4. Up and about and walking. 5. Lasix 40 mg IV push. TIME SPENT: More than 35 minutes MTDD
--- NOTE | 2017-10-06 13:57 | DS ---
DATE OF SERVICE: 08/30/17 FINAL DIAGNOSIS: 1. COPD exacerbation secondary to the pneumonia left lower lobe 2. Right extremity pain, DVT is negative 3. History of SVT 4. Hypertension 5. Dyslipidemia 6. Depression 7. Diabetes 8. Obesity 9. Sleep apnea on CPAP DISCHARGE INSTRUCTIONS: Discharge the patient home. Continue to use the oxygen which is helping the patient. Continue the rest of the home medication. MEDICATIONS AT DISCHARGE: Albuterol Atorvastatin Symbicort Coreg Cardizem Benadryl Hydrocodone DUO NEBS Lisinopril Glucophage Omeprazole Daliresp NEW PRESCRIPTIONS: Keflex 500mg twice a day for 5 days Prednisone 10mg twice a day 5 days DIET INSTRUCTIONS: Cardiac and healthy ACTIVITY: As much as tolerated DISEASE SPECIFIC EDUCATION: COPD Asthmatic bronchitis Needing for the pneumonia vaccination been discussed. All been discussed and verbalized understanding. HOSPITAL COURSE: Nguyễn Farris 57 year old male came to the office complaining of cough, congestion and shortness of breath, oxygen dependant. Because of multiple medical problems with patient was admitted to the hospital. CT scan showed the left basilar pneumonia, started on the Rocephin, steroids and breathing treatments. With the given treatments the patient started feeling but started developing a right lower extremity pain and swelling. Venous Doppler done which was negative for the clots. The patient was finally up and about walking less short of breath with no fever or chills, PND or orthopnea. BUN and creatinine was stable but WBC elevated at 23,000 but the patient has history of recent reaction to steroid whenever he comes to the hospital. We will following the WBC as an outpatient. As clinically the patient been more improved and feeling better the patient being discharged home. TIME SPENT: MORE THAN 65 MINUTES MTDD
== END 2017-08-30 14:15 | disposition home or self-care (01) | DRG 194 ==
LOC: MEDSURG B 14:43
PROVIDERS: ADMIT Emergency Medicine; ATTEND Emergency Medicine
DX: J18.9 Pneumonia, unspecified organism (principal); J44.1 Chronic obstructive pulmonary disease with (acute) exacerbation; R00.0 Tachycardia, unspecified; E11.9 Type 2 diabetes mellitus without complications; R06.02 Shortness of breath; M79.661 Pain in right lower leg; R60.0 Localized edema; I10 Essential (primary) hypertension; E78.5 Hyperlipidemia, unspecified; F32.9 Major depressive disorder, single episode, unspecified; E66.9 Obesity, unspecified; G47.30 Sleep apnea, unspecified; Z99.89 Dependence on other enabling machines and devices; Z79.4 Long term (current) use of insulin; Z79.899 Other long term (current) drug therapy
CPT/HCPCS: 36415; 80053; 82550; 82803; 82962; 84484; 85025; 87081; 87502; 93005; 93010; 94640

== ENCOUNTER 2017-11-09 12:35 | Outpatient (CLI) | payer OTHER ==
--- NOTE | 2017-11-09 14:17 | DI ---
EXAM: Right hand three-view HISTORY: Pain in right hand COMPARISON: None FINDINGS: No fracture or dislocation. Mild moderate scattered osteoarthritic change of severe joint space narrowing radiocarpal articulations.. Scattered dystrophic calcifications are seen adjacent t o the third and fourth MCP joints, first metacarpal, and the triangular fibrocartilage region. IMPERSSION: 1. No fracture or dislocation. 2. Mild to moderate scattered osteoarthritis with severe joint space narrowing radiocarpal articulat ions. 3. Scattered dystrophic calcifications.
--- NOTE | 2017-11-09 14:21 | DI ---
EXAM: Three views of the right wrist HISTORY: Right wrist pain. COMPARISON: None FINDINGS: There is severe narrowing of the radiocarpal joint with minimal calcifications in the trian gular fibrocartilage. There is mild degenerative change of the first CMC joint and the MCP joint. T here is no displaced fracture or dislocation. There is old healed fracture of the fifth metacarpal. Soft tissues are unremarkable. IMPRESSION: 1. Moderate to severe degenerative change of the radiocarpal joint with calcification of the triangu lar fibrocartilage. 2. Mild degenerative change of the first CMC and first MCP joint.
== END 2017-11-09 12:36 | disposition home or self-care (01) ==
LOC: RAD 12:35
PROVIDERS: ATTEND Emergency Medicine
DX: M79.641 Pain in right hand (principal); M25.531 Pain in right wrist

== ENCOUNTER 2017-11-22 09:55 | Outpatient (RCR) ==
[2017-11-22 11:47] VITALS: BP 104/54
== END 2017-11-24 23:59 ==
LOC: PUL.REHAB 09:55
PROVIDERS: ATTEND Emergency Medicine
DX: J44.9 Chronic obstructive pulmonary disease, unspecified (principal)

== ENCOUNTER 2017-11-25 09:21 | Outpatient (RCR) ==
[2017-12-15 13:29] VITALS: BP 144/58
== END 2017-12-24 23:59 ==
LOC: PUL.REHAB 09:21
PROVIDERS: ATTEND Emergency Medicine
DX: J44.9 Chronic obstructive pulmonary disease, unspecified (principal)

== ENCOUNTER 2017-12-26 08:02 | Outpatient (RCR) ==
[2018-01-24 13:27] VITALS: BP 118/56
== END 2018-01-24 23:59 ==
LOC: PUL.REHAB 08:02
PROVIDERS: ATTEND Emergency Medicine
DX: J44.9 Chronic obstructive pulmonary disease, unspecified (principal)

== ENCOUNTER 2018-01-25 07:21 | Outpatient (RCR) ==
[2018-02-23 13:09] VITALS: BP 140/58
== END 2018-02-24 23:59 ==
LOC: PUL.REHAB 07:21
PROVIDERS: ATTEND Emergency Medicine
DX: J44.9 Chronic obstructive pulmonary disease, unspecified (principal)

== ENCOUNTER 2018-02-03 14:35 | Outpatient (CLI) | END 2018-02-03 14:36 | disposition home or self-care (01) | LOC: LAB 14:35 | PROVIDERS: ATTEND Emergency Medicine | DX: E10.9 Type 1 diabetes mellitus without complications (principal); I10 Essential (primary) hypertension; G47.33 Obstructive sleep apnea (adult) (pediatric); D75.1 Secondary polycythemia; D64.9 Anemia, unspecified | CPT/HCPCS: 36415; 80053; 80061; 83036; 84443; 85025 ==

== ENCOUNTER 2018-02-28 07:29 | Outpatient (RCR) | payer OTHER ==
[2018-03-23 13:20] VITALS: BP 126/54
== END 2018-03-26 23:59 ==
LOC: PUL.REHAB 07:29
PROVIDERS: ATTEND Emergency Medicine
DX: J44.9 Chronic obstructive pulmonary disease, unspecified (principal)

== ENCOUNTER 2018-03-24 16:23 | Outpatient (CLI) | payer OTHER | END 2018-03-24 16:24 | disposition home or self-care (01) | LOC: FCC-LAB 16:23 | PROVIDERS: ATTEND Family Medicine | DX: M10.9 Gout, unspecified (principal); E10.9 Type 1 diabetes mellitus without complications; I10 Essential (primary) hypertension | CPT/HCPCS: 36415; 80053; 82043; 84550; 85025 ==

== ENCOUNTER 2018-03-27 09:10 | Outpatient (RCR) ==
[2018-03-30 13:32] VITALS: BP 126/56
== END 2018-04-04 08:26 | disposition home or self-care (01) ==
LOC: PUL.REHAB 09:10
PROVIDERS: ATTEND Emergency Medicine
DX: J44.9 Chronic obstructive pulmonary disease, unspecified (principal)

== ENCOUNTER 2018-04-13 12:38 | Outpatient (RCR) ==
[2018-04-18 13:11] VITALS: BP 140/56
== END 2018-04-26 23:59 ==
LOC: PUL.REHAB 12:38
PROVIDERS: ATTEND Family Medicine
DX: J44.9 Chronic obstructive pulmonary disease, unspecified (principal)

== ENCOUNTER 2018-05-29 08:19 | Outpatient (RCR) ==
[2018-06-15 12:09] VITALS: BP 120/56
== END 2018-06-26 23:59 ==
LOC: PUL.REHAB 08:19
PROVIDERS: ATTEND Family Medicine
DX: J44.9 Chronic obstructive pulmonary disease, unspecified (principal)

== ENCOUNTER 2018-06-28 07:48 | Outpatient (RCR) ==
[2018-07-27 13:18] VITALS: BP 122/56
== END 2018-07-27 23:59 ==
LOC: PUL.REHAB 07:48
PROVIDERS: ATTEND Family Medicine
DX: J44.9 Chronic obstructive pulmonary disease, unspecified (principal)

== ENCOUNTER 2018-07-25 09:24 | Outpatient (CLI) | END 2018-07-25 09:25 | disposition home or self-care (01) | LOC: RHC-LAB 09:24 → FCC-LAB 09:25 | PROVIDERS: ATTEND Family Medicine | DX: E13.9 Other specified diabetes mellitus without complications (principal); M1A.0690 Idiopathic chronic gout, unspecified knee, without tophus (tophi) | CPT/HCPCS: 36415; 80053; 83037; 84550 ==

== ENCOUNTER 2018-07-28 07:24 | Outpatient (RCR) ==
[2018-08-17 12:54] VITALS: BP 110/58
== END 2018-08-24 23:59 ==
LOC: PUL.REHAB 07:24
PROVIDERS: ATTEND Family Medicine
DX: J44.9 Chronic obstructive pulmonary disease, unspecified (principal)
CPT/HCPCS: 93797

== ENCOUNTER 2018-08-25 07:25 | Outpatient (RCR) ==
[2018-09-14 13:54] VITALS: BP 110/58
== END 2018-09-24 23:59 ==
LOC: PUL.REHAB 07:25
PROVIDERS: ATTEND Family Medicine
DX: J44.9 Chronic obstructive pulmonary disease, unspecified (principal)

== ENCOUNTER 2018-09-25 10:38 | Outpatient (RCR) ==
[2018-10-03 13:02] VITALS: BP 112/56
== END 2018-10-24 23:59 ==
LOC: PUL.REHAB 10:38
PROVIDERS: ATTEND Family Medicine
DX: J44.9 Chronic obstructive pulmonary disease, unspecified (principal)

== ENCOUNTER 2018-09-29 08:56 | Outpatient (CLI) | END 2018-09-29 08:57 | disposition home or self-care (01) | LOC: LAB 08:56 | PROVIDERS: ATTEND Family Medicine | DX: D50.9 Iron deficiency anemia, unspecified (principal); D75.1 Secondary polycythemia; D72.829 Elevated white blood cell count, unspecified | CPT/HCPCS: 36415; 80053; 82728; 83540; 83550; 85025 ==

== ENCOUNTER 2018-10-04 11:19 | Outpatient (CLI) | END 2018-10-04 11:20 | disposition home or self-care (01) | LOC: LAB 11:19 | PROVIDERS: ATTEND Family Medicine | DX: D72.829 Elevated white blood cell count, unspecified (principal) | CPT/HCPCS: 36415; 85025 ==

== ENCOUNTER 2018-10-19 15:44 | Outpatient (CLI) | END 2018-10-19 15:45 | disposition home or self-care (01) | LOC: CAR 15:44 | PROVIDERS: ATTEND Psychiatry & Neurology Sleep Medicine | DX: G47.33 Obstructive sleep apnea (adult) (pediatric) (principal) | CPT/HCPCS: 95810 ==

== ENCOUNTER 2018-12-14 11:20 | Outpatient (CLI) | END 2018-12-14 11:21 | disposition home or self-care (01) | LOC: LAB 11:20 | PROVIDERS: ATTEND Internal Medicine Hematology & Oncology | DX: D50.9 Iron deficiency anemia, unspecified (principal) | CPT/HCPCS: 36415; 82728; 83540; 83550; 85025 ==

== ENCOUNTER 2019-01-25 07:19 | Outpatient (RCR) ==
[2019-01-08 19:59] VITALS: BMI 40.4
[2019-02-06 13:25] VITALS: BP 132/60
== END 2019-02-24 23:59 ==
LOC: PUL.REHAB 07:19
PROVIDERS: ATTEND Family Medicine
DX: J44.9 Chronic obstructive pulmonary disease, unspecified (principal)

== ENCOUNTER 2022-04-09 20:06 | Inpatient (IN) ==
--- NOTE | 2022-04-09 20:22 | ED.PDOC ---
General ED Provider: Dr. MARCOS YODER Chief Complaint: Chest Pain Stated Complaint: Palpitations and some chest pressure started [employer]. Hx A-fib, not on blood thinner ??. Says he is cared for by Dr. Pritchard for this and does not see a street car mechanic. Hx T2DM and COPD. Time Seen by Provider: 04/09/22 20:21 Mode of Arrival: Ambulance Information Source: Patient and EMT Exam Limitations: No limitations Primary Care Provider: JAYSON PRITCHARD MD Nursing and Triage Documentation Reviewed and Agree: Yes Does patient meet sepsis criteria?: No System Inflammatory Response Syndrome: Not Applicable Sepsis Protocol: For patient's 13 years and over: Temp is 96.8 and below OR 101 and greater Pulse >90 BPM Resp >20/minute Acutely Altered Mental Status Are patient's symptoms suggestive of a new infection, such as: -Pneumonia -Skin, Soft Tissue -Endocarditis -UTI -Bone, Joint Infection -Implantable Device -Acute Abdominal Infection -Wound Infection -Meningitis -Blood Stream Catheter Infection -Unknown Cardiovascular Complaint Exam Palpitations Complaint/Exam Onset/Duration: Few hours Symptoms Are: Still present Timing: Constant Initial Severity: Moderate Current Severity: Moderate Character: Reports Fast and Irregular Aggravating: Reports Exertion Alleviating: Reports None Associated Signs and Symptoms: Reports Chest pain Related History: Similar episode Related Surgical History: Reports None Cardiac Risk Factors: Reports Diabetes and Elevated lipids Pulmonary Embolism Risk Factors: Reports None Atrial Fibrillation Risk Factors: Reports COPD Thyroid Exam: Normal Review of Systems Review Of Systems Constitutional: Reports No symptoms Eyes: Reports No symptoms Ears, Nose, Mouth, Throat: Reports No symptoms Respiratory: Reports No symptoms Cardiac: Reports Chest pain, Irregular heart rate and Palpitations GI: Reports No symptoms : Reports No symptoms Musculoskeletal: Reports No symptoms Skin: Reports No symptoms Neurological: Reports No symptoms Endocrine: Reports No symptoms Hematologic/Lymphatic: Reports No symptoms All Other Systems: Reviewed and Negative [facility] Medical History Anemia Chronic obstructive pulmonary disease Chronic pain Diabetes mellitus DJD (degenerative joint disease) Dyslipidemia Gastroesophageal reflux disease Obesity Oral candidiasis Restless legs syndrome Sleep apnea Family History (Updated 04/09/22 @ 23:03 by MARY KELLY RN) Other No known health problems Social History Smoking and tobacco status: Former smoker Alcohol intake: never Substance use type: does not use Gloria/lutheran: MANDAEISM Special gloria needs: No Agree to transfusion: Yes Adopted: Yes Caregiver/support person: No Foster care: No Household members: children Housing: house Lives independently: Yes Daycare: no daycare Number of children: 1 Number of grandchildren: 0 Highest education level completed: some college, no degree Financial difficulty paying for basics: not very hard service: No group home: No Current occupational status: retired Current occupational exposures/hazards: No Pets and animals: Yes Leisure activites: hunting and fishing History of recent travel: No Sexually active: No Do you think of yourself as: straight/heterosexual Current gender identity: male Seatbelt use: always Helmet use: No Drives intoxicated or rides with intoxicated tow truck driver: No Water heater temperature set < 120 degrees: Yes Working smoke detector in home: Yes Fire extinguisher in home: Yes Carbon monoxide detector in home: Yes Firearms in home: Yes Firearms unloaded and locked: Yes Surgical History Status post tonsillectomy tooth extraction (03/20/19) Physical Exam Physical Exam Appearance: Reports Well-appearing Ill-appearing: None Pain Distress: Mild Eyes: Reports SARAH ENT: Reports Oropharynx normal Neck: Supple Respiratory: Reports Airway patent and Breath sounds clear Cardiovascular: Reports Irregular rhythm and Tachycardia GI/: Reports Soft and Nontender Musculoskeletal: Reports Normal strength and ROM intact Skin: Reports Warm and Dry Neurological: Reports Sensation intact, Motor intact and Alert Psychiatric: Reports Affect appropriate, Mood appropriate and Anxious Interpretation Radiology Interpretation Radiology Interpretation By: Radiologist Radiology Results: No acute changes Exam Interpreted: Portable CXR Xray Comments: No infiltrate or CHF EKG Interpretation Time of EKG #1: 20:09 Rate: Tachy Rhythm: Other (a-fib) Ectopy: None [place]: NL ST Segment: Other Interpretation: A-fib with RVR, NSSTW changes Critical Care Note Critical Care Note Total Critical Care Time (mins): 30 Comments: For rate control for A-fib with RVR and to complete cardiac work-up. Course Course Hematology/Chemistry: 04/09/22 20:43 04/09/22 20:43 Orders, Labs, Meds: Lab Review 04/09/22 04/09/22 04/09/22 20:23 20:23 20:23 WBC RBC Hgb Hct MCV MCH MCHC RDW Coeff of Sameer Plt Count Immature Gran % (Auto) Neut % (Auto) Lymph % (Auto) Blanco % (Auto) Eos % (Auto) Baso % (Auto) Neut # (Auto) Lymph # (Auto) Blanco # (Auto) Eos # (Auto) Baso # (Auto) Immature Gran # (Auto) Sodium Potassium Chloride Carbon Dioxide Anion Gap BUN Creatinine Estimated GFR (MDRD) BUN/Creatinine Ratio Glucose Calcium Total Bilirubin AST ALT Alkaline Phosphatase Troponin I NT-Pro-B Natriuret Pep Total Protein Albumin Globulin Albumin/Globulin Ratio Urine Color Yellow Urine Clarity Clear Urine pH 7.0 Ur Specific [place] 1.015 Urine Protein Negative Urine Glucose (UA) Negative Urine Ketones Negative Urine Blood Negative Urine Nitrite Negative Urine Bilirubin Negative Urine Urobilinogen 0.2 Ur Leukocyte Esterase Negative Urine Opiates Screen Negative Ur Oxycodone Screen Positive H Urine Methadone Screen Negative Ur Propoxyphene Screen Negative Ur Barbiturates Screen Negative U Tricyclic Antidepress Negative Ur Phencyclidine Scrn Negative Ur Amphetamine Screen Negative U Methamphetamines Scrn Negative U Benzodiazepines Scrn Negative Urine Cocaine Screen Negative U Cannabinoids Screen Negative SARS CoV-2 RNA Rapid KARISSA Negative 04/09/22 04/09/22 04/09/22 20:43 20:43 20:43 WBC 17.16 H RBC 5.61 Hgb 14.5 Hct 44.7 MCV 79.7 L MCH 25.8 L MCHC 32.4 RDW Coeff of Sameer 14.4 Plt Count 353 Immature Gran % (Auto) 0.5 Neut % (Auto) 73.5 Lymph % (Auto) 14.9 Blanco % (Auto) 8.3 Eos % (Auto) 2.3 Baso % (Auto) 0.5 Neut # (Auto) 12.6 H Lymph # (Auto) 2.6 Blanco # (Auto) 1.4 Eos # (Auto) 0.4 Baso # (Auto) 0.1 Immature Gran # (Auto) 0.1 Sodium 138.6 Potassium 3.91 Chloride 104.8 Carbon Dioxide 21.1 L Anion Gap 16.61 BUN 16.1 Creatinine 0.78 Estimated GFR (MDRD) 101.00 BUN/Creatinine Ratio 20.64 Glucose 149.9 H Calcium 9.65 Total Bilirubin 0.27 AST 26.8 ALT 25.2 Alkaline Phosphatase 87.3 Troponin I < 0.012 NT-Pro-B Natriuret Pep 86.300 Total Protein 7.64 Albumin 4.40 Globulin 3.24 Albumin/Globulin Ratio 1.35 Urine Color Urine Clarity Urine pH Ur Specific [place] Urine Protein Urine Glucose (UA) Urine Ketones Urine Blood Urine Nitrite Urine Bilirubin Urine Urobilinogen Ur Leukocyte Esterase Urine Opiates Screen Ur Oxycodone Screen Urine Methadone Screen Ur Propoxyphene Screen Ur Barbiturates Screen U Tricyclic Antidepress Ur Phencyclidine Scrn Ur Amphetamine Screen U Methamphetamines Scrn U Benzodiazepines Scrn Urine Cocaine Screen U Cannabinoids Screen SARS CoV-2 RNA Rapid KARISSA Orders Category Date Time Status EKG-(ED ONLY) Stat CARDIO 04/09/22 20:28 Completed NEBULIZER TREATMENT Stat CARDIO 04/09/22 21:13 Completed CBC W/ AUTO DIFF Stat LAB 04/09/22 20:43 Completed COMPREHENSIVE METABOLIC PANEL Stat LAB 04/09/22 20:43 Completed DRUG SCREEN, URINE, RAPID Stat LAB 04/09/22 20:23 Completed NT-PROBNP Stat LAB 04/09/22 20:43 Completed SARS COV-2 RNA RAPID KARISSA Stat LAB 04/09/22 20:23 Completed TROPONIN I Stat LAB 04/09/22 20:43 Completed URINALYSIS C & S IF INDICATED Stat LAB 04/09/22 20:23 Completed Albuterol Sulfate 0.083% Neb [Albuterol 0.083% Neb] MEDS 04/09/22 21:13 Discontinued 2.5 mg NEB ONCE ONE Diltiazem HCl [Cardizem Inj] MEDS 04/09/22 20:28 Discontinued 15 mg IVP ONCE ONE Diltiazem HCl [Cardizem Inj] MEDS 04/09/22 21:30 Discontinued 15 mg IVP ONCE ONE Diltiazem HCl [Cardizem] 125 mg MEDS 04/09/22 21:30 Active 0.9 % Sodium Chloride [Sodium Chloride 100Ml] 100 ml IV TITRATION CHEST, 1V AP ONLY Stat RADS 04/09/22 20:28 Completed Medications Generic Name Dose Route Start Last Admin Trade Name Freq PRN Reason Stop Dose Admin Acetaminophen 650 mg 04/09/22 22:21 Acetaminophen 325 Mg Tablet PO Q4H PRN Headache Albuterol Sulfate 2.5 mg 04/09/22 22:32 04/10/22 01:55 Albuterol Sulfate 0.083% Vial.Neb NEB 2.5 mg Q3H PRN Administration Wheezing Atorvastatin Calcium 10 mg 04/10/22 09:00 Atorvastatin Calcium 10 Mg Tablet PO DAILY LEROY Atropine Sulfate 0.5 mg 04/09/22 22:21 Atropine Sulfate Inj 1 Mg/10 Ml Disp.Syrin IVP ONCE PRN Symptomatic Bradycardia Dicyclomine HCl 10 mg 04/09/22 22:32 Dicyclomine Hcl 10 Mg Capsule PO TID PRN Abdominal Pain Diphenhydramine HCl 50 mg 04/10/22 00:30 04/10/22 01:08 Diphenhydramine Hcl 25 Mg Capsule PO 50 mg BEDTIME LEROY Administration Enoxaparin Sodium 100 mg 04/10/22 09:00 Enoxaparin Sodium 100 Mg/Ml Syr SUBCUT Q12HR LEROY Diltiazem HCl 125 mg/ Sodium 125 mls @ 5 mls/hr 04/09/22 21:30 04/10/22 02:27 Chloride IV 10 mg/hr TITRATION LEROY 10 mls/hr Titration Protocol 5 MG/HR Insulin Human Regular 0 unit 04/09/22 22:40 Insulin Regular, Human 100 Unit/Ml (3ml) Vial SUBCUT PRN PRN Hyperglycemia Protocol Lisinopril 5 mg 04/10/22 09:00 Lisinopril 5 Mg Tablet PO DAILY LEROY Nitroglycerin 0.4 mg 04/09/22 22:21 Nitroglycerin 0.4 Mg Tab.Subl SL Q5MIN X 3 DOSES PRN Chest Pain Oxycodone/Acetaminophen 1 tab 04/10/22 00:30 04/10/22 01:09 Oxycodone/Acetaminophen 10/325 Mg Tablet PO Not Given TID LEROY Pramipexole Dihydrochloride 0.125 mg 04/10/22 01:30 04/10/22 01:33 Pramipexole Di-Hcl 0.25 Mg Tablet PO 0.125 mg BEDTIME LEROY Administration Sodium Chloride 1 syr 04/10/22 04:03 0.9% Sodium Chloride 10 Ml Disp.Syrin IVF Q8HR PRN FLUSHING Discontinued Medications Generic Name Dose Route Start Last Admin Trade Name Freq PRN Reason Stop Dose Admin Albuterol Sulfate 2.5 mg 04/09/22 21:13 04/09/22 21:18 Albuterol Sulfate 0.083% Vial.Neb NEB 04/09/22 21:14 2.5 mg ONCE ONE Administration Diltiazem HCl 15 mg 04/09/22 20:28 04/09/22 20:36 Diltiazem Hcl Inj 25 Mg/5 Ml Vial IVP 04/09/22 20:29 15 mg ONCE ONE Administration Diltiazem HCl 15 mg 04/09/22 21:30 04/09/22 21:35 Diltiazem Hcl Inj 25 Mg/5 Ml Vial IVP 04/09/22 21:31 15 mg ONCE ONE Administration Diphenhydramine HCl 50 mg 04/10/22 21:00 Diphenhydramine Hcl 25 Mg Capsule PO BEDTIME LEROY Oxycodone/Acetaminophen 1 tab 04/10/22 09:00 Oxycodone/Acetaminophen 10/325 Mg Tablet PO TID LEROY Pramipexole Dihydrochloride 0.125 mg 04/10/22 09:00 Pramipexole Di-Hcl 0.25 Mg Tablet PO DAILY LEROY Sodium Chloride 1 syr 04/10/22 05:00 0.9% Sodium Chloride 10 Ml Disp.Syrin IVF Q8HR LEROY Vital Signs: Temp Pulse Resp BP Pulse Ox 04/09/22 20:08 97.8 F 118 H 24 H 162/124 H 96 RICHARD Risk Score Age >/= 65: No >/= 3 CAD Risk Factors: No Known CAD (Stenosis >/= 50%): No ASA Use in Past 7 Days: No Severe Angina (>/= 2 episodes in 24 hours): No EKG ST Changes >/= 0.5mm: No Postive Cardiac Marker: No RICHARD Total Score: 0 RICHARD Risk Score: Risk Score Odds of by 30D 0 0.1 (0.1-0.2) 1 0.3 (0.2-0.3) 2 0.4 (0.3-0.5) 3 0.7 (0.6-0.9) 4 1.2 (1.0-1.5) 5 2.2 (1.9-2.6) 6 3.0 (2.5-3.6) 7 4.8 (3.8-6.1) Discharge Plan Discharge Patient Disposition: ADMITTED INPATIENT Discharge Problem: Atrial fibrillation with RVR Did you review [place] CONTRACT PREPARER?: Not Applicable ED Provider: MARCOS YODER Condition: Fair Physician Progress Note: [Rate gradually coming down with IV cardizem. No CP, BP stable, troponin neg. Lo venox. Patient does not want transferred. Dr. Ba consulted. ]
[2022-04-09] MEDS ORDERED: CARDIZEM INJ IVP ONE ×2 (20:28→21:30)
[2022-04-09 20:48] LABS: BASOPHILS # (AUTO) 0.1 K/uL (0-0.2); BASOPHILS % (AUTO) 0.5 % (0.0-3.0); EOSINOPHILS # (AUTO) 0.4 K/ul (0.0-0.7); EOSINOPHILS % (AUTO) 2.3 % (0.0-7.0); HEMATOCRIT 44.7 % (42.0-52.0); HEMOGLOBIN 14.5 g/dl (14.0-18.0); IMMATURE GRANULOCYTE # (AUTO) 0.1 (0.0-1.0); IMMATURE GRANULOCYTE % (AUTO) 0.5 % (0.0-5.0); LYMPHOCYTES # (AUTO) 2.6 K/uL (0.60-3.4); LYMPHOCYTES % (AUTO) 14.9 (10.0-50.0); MEAN CORPUSCULAR HEMOGLOBIN 25.8 pg (27.0-31.0); MEAN CORPUSCULAR HGB CONC 32.4 (31.8-35.4); MEAN CORPUSCULAR VOLUME 79.7 fl (80.0-94.0); MONOCYTES # (AUTO) 1.4 K/uL (0.4-2.0); MONOCYTES % (AUTO) 8.3 (0-10); NEUTROPHILS # (AUTO) 12.6 K/ul (2.0-6.9); NEUTROPHILS % (AUTO) 73.5 % (42.2-75.2); PLATELET COUNT 353 10^3/uL (140-440); RDW COEFFICIENT OF VARIATION 14.4 % (11.6-14.8); RED BLOOD COUNT 5.61 10^6/ul (4.70-6.10); WHITE BLOOD COUNT 17.16 K/ul (4.2-10.2)
--- NOTE | 2022-04-09 20:49 | DI ---
EXAM: Frontal view of the chest. HISTORY: Chest pain shortness of breath. COMPARISON: 11/02/2021 FINDINGS: Atelectasis is present in the lung base. This is less pronounced than the previous examination. Cardiac silhouette is borderline in size. No organized infiltrate/consolidation. Subtle blunting of the costophrenic sulcus noted on the right. A trace of fluid versus atelectasis a long the costophrenic angle may be present No acute osseous abnormality. IMPRESSION: 1. Trace effusion versus atelectasis right costophrenic sulcus. 2. Basilar atelectasis on the left is improved when compared to prior study.
[2022-04-09 20:57] LABS: BILIRUBIN,URINE Negative (NEGATIVE); CLARITY,URINE Clear (CLEAR); COLOR,URINE Yellow (YELLOW); GLUCOSE, URINE (UA) Negative (NEGATIVE); KETONES,URINE Negative (NEGATIVE); LEUKOCYTE ESTERASE ,URINE Negative (NEGATIVE); NITRITE,URINE Negative (NEGATIVE); PROTEIN,URINE Negative (NEGATIVE); URINE, BLOOD Negative (NEGATIVE); UROBILINOGEN,URINE 0.2 (0.2)
[2022-04-09 21:00] LABS: ALANINE AMINOTRANSFERASE 25.2 U/L (0-50); ALKALINE PHOSPHATASE 87.3 U/L (56-119); ASPARTATE AMINO TRANSFERASE 26.8 U/L (17-59); BILIRUBIN,TOTAL 0.27 mg/dL (0.2-1.3); BLOOD UREA NITROGEN 16.1 mg/dL (9-20); CALCIUM 9.65 mg/dL (8.4-10.2); CARBON DIOXIDE 21.1 mmol/L (22-30.0); CHLORIDE 104.8 mmol/L (98-107); CREATININE 0.78 mg/dL (0.60-1.10); GLUCOSE 149.9 mg/dL (74-106); POTASSIUM 3.91 mmol/L (3.5-5.1); SODIUM 138.6 mmol/L (134.5-145); TOTAL PROTEIN 7.64 g/dL (6.3-8.2)
[2022-04-09 21:06] LABS: AMPHETAMINE SCREEN,URINE NEGATIVE (NEGATIVE); BARBITURATE SCREEN,URINE NEGATIVE (NEGATIVE); BENZODIAZEPINES SCREEN,URINE NEGATIVE (NEGATIVE); CANNABINOID SCREEN,URINE NEGATIVE (NEGATIVE); COCAIN SCREEN,URINE NEGATIVE (NEGATIVE); METHADONE URINE SCREEN NEGATIVE (NEGATIVE); METHAMPHETAMINES SCREEN,URINE NEGATIVE (NEGATIVE); OPIATE SCREEN,URINE NEGATIVE (NEGATIVE); OXYCODONE URINE SCREEN POSITIVE (NEGATIVE); PHENCYCLIDINE SCREEN,URINE NEGATIVE (NEGATIVE); PROPOXYPHENE URINE SCREEN NEGATIVE (NEGATIVE); TRICYCLIC ANTIDEPRESSANTS URIN NEGATIVE (NEGATIVE)
[2022-04-09] MEDS ORDERED: DUONEB NEB ONE (21:06)
[2022-04-09 21:13] LABS: TROPONIN I < 0.012 ng/ml (0.0000-0.120)
[2022-04-09] MEDS ORDERED: ALBUTEROL 0.083% NEB NEB ONE (21:13)
[2022-04-09] MEDS: CARDIZEM 125 MG in SODIUM CHLORIDE 100ML 100 ML IV SCH (21:47)
[2022-04-09] MEDS ORDERED: NITROSTAT SL PRN (22:21)
[2022-04-09] MEDS ORDERED: ATROPINE SULFATE PFS IVP PRN (22:21)
[2022-04-09] MEDS ORDERED: TYLENOL PO PRN (22:21)
[2022-04-09] MEDS ORDERED: BENTYL PO PRN (22:32)
[2022-04-09 22:52] LABS: CREATINE KINASE 70.8 U/L (55-170)
[2022-04-09 23:05] LABS: TROPONIN I < 0.012 ng/ml (0.0000-0.120)
[2022-04-09 23:37] VITALS: BMI 40.9
[2022-04-10] MEDS: BENADRYL PO SCH ×2 (01:08→20:20)
[2022-04-10] MEDS: PERCOCET 10-325 PO SCH ×4 (01:09→20:21)
[2022-04-10] MEDS: MIRAPEX PO SCH ×2 (01:33→20:23)
[2022-04-10] MEDS: ALBUTEROL 0.083% NEB NEB PRN ×6 (01:55→22:12)
[2022-04-10 06:53] LABS: BASOPHILS # (AUTO) 0.1 K/uL (0-0.2); BASOPHILS % (AUTO) 0.5 % (0.0-3.0); EOSINOPHILS # (AUTO) 0.5 K/ul (0.0-0.7); EOSINOPHILS % (AUTO) 2.9 % (0.0-7.0); HEMATOCRIT 46.9 % (42.0-52.0); HEMOGLOBIN 14.8 g/dl (14.0-18.0); IMMATURE GRANULOCYTE # (AUTO) 0.1 (0.0-1.0); IMMATURE GRANULOCYTE % (AUTO) 0.4 % (0.0-5.0); LYMPHOCYTES # (AUTO) 3.1 K/uL (0.60-3.4); LYMPHOCYTES % (AUTO) 19.5 (10.0-50.0); MEAN CORPUSCULAR HEMOGLOBIN 25.4 pg (27.0-31.0); MEAN CORPUSCULAR HGB CONC 31.6 (31.8-35.4); MEAN CORPUSCULAR VOLUME 80.4 fl (80.0-94.0); MONOCYTES # (AUTO) 1.2 K/uL (0.4-2.0); MONOCYTES % (AUTO) 7.6 (0-10); NEUTROPHILS # (AUTO) 10.8 K/ul (2.0-6.9); NEUTROPHILS % (AUTO) 69.1 % (42.2-75.2); PLATELET COUNT 333 10^3/uL (140-440); RDW COEFFICIENT OF VARIATION 14.5 % (11.6-14.8); RED BLOOD COUNT 5.83 10^6/ul (4.70-6.10); WHITE BLOOD COUNT 15.71 K/ul (4.2-10.2)
[2022-04-10 07:04] LABS: ALANINE AMINOTRANSFERASE 21.5 U/L (0-50); ALBUMIN 4.21 g/dL (3.5-5.0); ALKALINE PHOSPHATASE 77.3 U/L (56-119); ASPARTATE AMINO TRANSFERASE 25.6 U/L (17-59); BILIRUBIN,TOTAL 0.28 mg/dL (0.2-1.3); CALCIUM 9.45 mg/dL (8.4-10.2); CARBON DIOXIDE 25.6 mmol/L (22-30.0); CHLORIDE 105.5 mmol/L (98-107); CHOLESTEROL 163.6 mg/dL (0-200); CREATINE KINASE 79.9 U/L (55-170); GLUCOSE 128.8 mg/dL (74-106); HDL CHOLESTEROL 35.9 mg/dL (35-60); LDL CHOLESTEROL,CALCULATED 95 mmol/L; POTASSIUM 3.98 mmol/L (3.5-5.1); SODIUM 139.5 mmol/L (134.5-145); TOTAL PROTEIN 7.31 g/dL (6.3-8.2); TRIGLYCERIDES 164.9 mg/dL (0-150); VLDL CHOLESTEROL 33 mg/dL (2-30)
[2022-04-10 07:16] LABS: TROPONIN I < 0.012 ng/ml (0.0000-0.120)
[2022-04-10] MEDS ORDERED: LANOXIN IVP ONE ×2 (08:32→11:00)
[2022-04-10] MEDS ORDERED: DECADRON IM ONE (08:33)
[2022-04-10] MEDS ORDERED: LOVENOX SUBCUT SCH (09:00)
[2022-04-10] MEDS ORDERED: MIRAPEX PO SCH (09:00)
[2022-04-10] MEDS ORDERED: ZESTRIL PO SCH (09:00)
[2022-04-10] MEDS ORDERED: PERCOCET 10-325 PO SCH (09:00)
[2022-04-10] MEDS ORDERED: LANOXIN ONE (09:21)
[2022-04-10] MEDS ORDERED: PROTONIX ONE (09:23)
[2022-04-10] MEDS: PROTONIX PO SCH ×2 (09:27→17:12)
[2022-04-10] MEDS: LIPITOR PO SCH (09:27)
[2022-04-10] MEDS ORDERED: CARDIZEM PO ONE (10:34)
[2022-04-10] MEDS ORDERED: XANAX PO ONE ×2 (10:38→23:23)
[2022-04-10] MEDS ORDERED: LACTULOSE PO SCH (12:20)
[2022-04-10] MEDS ORDERED: GLUCOTROL XL PO SCH (12:22)
[2022-04-10] MEDS: DALIRESP PO SCH (12:50)
[2022-04-10] MEDS: COREG PO SCH ×2 (12:50→17:12)
[2022-04-10] MEDS: ELIQUIS PO SCH ×2 (12:50→20:21)
[2022-04-10] MEDS: HUMULIN R SUBCUT PRN ×3 (12:51→20:22)
[2022-04-10] MEDS: MIRALAX PO SCH (13:05)
[2022-04-10] MEDS: SYMBICORT 160-4.5 MCG INHALER IH SCH ×2 (13:18→20:32)
[2022-04-10] MEDS: FERROUS SULFATE PO SCH (15:22)
[2022-04-10] MEDS: CARDIZEM 125 MG in SODIUM CHLORIDE 100ML 100 ML IV SCH ×2 (16:10→20:33)
--- NOTE | 2022-04-10 16:20 | CT ---
EXAM: CT chest without contrast. HISTORY: Shortness of breath. Decreased oxygen saturation. COMPARISON: Radiograph 04/09/2022. CT 11/12/2021. TECHNIQUE: Multiple axial images of the chest were obtained without intravenous contrast. Images we re reformatted in the sagittal and coronal planes. FINDINGS: Limited assessment lymphadenopathy without contrast. Heart size is normal. Coronary artery and aortic calcifications. No pericardial effusion. Mild emphysema. Mild bronchial thickening. Scattered linear opacities in both lower lobes. No cons olidation, pleural effusion or pneumothorax. There is no acute abnormality in the upper abdomen. Degenerative changes throughout the spine. IMPRESSION: 1. Mild emphysema. 2. Mild bronchial thickening which could be infectious or inflammatory. 3. Mild bibasilar subsegmental atelectasis. All CT scans are performed using dose optimization techniques as appropriate to the performed exam an d include at least one of the following: Automated exposure control, adjustment of the mA and/or kV according t o size, and the use of iterative reconstruction technique.
[2022-04-10] MEDS ORDERED: ROCEPHIN 1 GM/50 ML D5W 1 GM/50 ML BAG IV SCH ×2 (16:54→16:58)
[2022-04-10] MEDS ORDERED: ZITHROMAX PO SCH ×2 (16:55→16:58)
[2022-04-10] MEDS: GLUCOPHAGE PO SCH (17:12)
[2022-04-10] MEDS: SOLU-MEDROL 125 MG IVP SCH ×2 (17:16→23:30)
[2022-04-10] MEDS: ROCEPHIN 1 GM/50 ML D5W 1 GM/50 ML BAG IV SCH (18:36)
[2022-04-10] MEDS: ZITHROMAX PO SCH (18:44)
[2022-04-10] MEDS: CARDIZEM PO SCH (20:21)
[2022-04-10] MEDS ORDERED: BENADRYL PO SCH (21:00)
--- NOTE | 2022-04-11 00:51 | PCM.PROG ---
Date Seen by Provider: 04/10/22 Time Seen by Provider: 11:55 Subjective: no acute sxs. Objective: Vitals: T=97.2 F, P=101, R=20, LD=740/76, SPO2=96 HEENT: []wnl Neck: []supple Lungs: []mild persistent wheezes and rhonchi. no acute resp distress. CVS: []rrr Abdomen: []benign Extremities: []no acute abnormality Neurological: []non-focal Skin: []wnl Lab/Tests/Diagnostic Imaging: [] (1) Atrial fibrillation with RVR: Status: Acute Code(s): I48.91 - Unspecified atrial fibrillation SNOMED Code(s): 526393331063324 (2) Acute bronchitis: Status: Acute Code(s): J20.9 - Acute bronchitis, unspecified SNOMED Code(s): 15126803 Plan: 1. See the consult per Dr Ba: continue Tx regimen. 2. Treat COPD and Bronchitis.
[2022-04-11] MEDS: ALBUTEROL 0.083% NEB NEB PRN ×5 (05:08→23:30)
[2022-04-11 05:20] LABS: BASOPHILS % (AUTO) 0.2 % (0.0-3.0); HEMATOCRIT 44.4 % (42.0-52.0); HEMOGLOBIN 14.2 g/dl (14.0-18.0); IMMATURE GRANULOCYTE # (AUTO) 0.2 (0.0-1.0); LYMPHOCYTES # (AUTO) 1.1 K/uL (0.60-3.4); MEAN CORPUSCULAR HEMOGLOBIN 25.7 pg (27.0-31.0); MEAN CORPUSCULAR VOLUME 80.3 fl (80.0-94.0); MONOCYTES # (AUTO) 0.3 K/uL (0.4-2.0); MONOCYTES % (AUTO) 1.8 (0-10); NEUTROPHILS # (AUTO) 16.8 K/ul (2.0-6.9); PLATELET COUNT 347 10^3/uL (140-440); RDW COEFFICIENT OF VARIATION 14.2 % (11.6-14.8); RED BLOOD COUNT 5.53 10^6/ul (4.70-6.10); WHITE BLOOD COUNT 18.47 K/ul (4.2-10.2)
[2022-04-11 05:30] LABS: ALANINE AMINOTRANSFERASE 25.6 U/L (0-50); ALBUMIN 4.49 g/dL (3.5-5.0); ALKALINE PHOSPHATASE 80.7 U/L (56-119); ASPARTATE AMINO TRANSFERASE 25.6 U/L (17-59); BILIRUBIN,TOTAL 0.28 mg/dL (0.2-1.3); BLOOD UREA NITROGEN 15.6 mg/dL (9-20); CALCIUM 9.78 mg/dL (8.4-10.2); CARBON DIOXIDE 20.2 mmol/L (22-30.0); CHLORIDE 104.3 mmol/L (98-107); CREATININE 0.77 mg/dL (0.60-1.10); GLUCOSE 251.6 mg/dL (74-106); POTASSIUM 4.61 mmol/L (3.5-5.1); SODIUM 136.7 mmol/L (134.5-145); TOTAL PROTEIN 7.71 g/dL (6.3-8.2)
[2022-04-11] MEDS: SOLU-MEDROL 125 MG IVP SCH ×3 (05:39→19:25)
[2022-04-11] MEDS: PROTONIX PO SCH ×2 (05:40→17:24)
[2022-04-11] MEDS: HUMULIN R SUBCUT PRN ×4 (05:40→20:14)
--- NOTE | 2022-04-11 08:30 | PCM.PROG ---
Date Seen by Provider: 04/11/22 Time Seen by Provider: 08:28 Subjective: no new complaints from the patient or nursing staff--apparently received a dose of dig yesterday and converted to SR according to nursing staff Objective: Vitals: T=96.9 F, P=99, R=19, XN=033/80, SPO2=95 HEENT: [] Neck: [supple] Lungs: [scattered rhonchi] CVS: rrr] Abdomen: [soft nt] Extremities: [] Neurological: intact[] Skin: [] Lab/Tests/Diagnostic Imaging: [] (1) Atrial fibrillation with RVR: Status: Acute Code(s): I48.91 - Unspecified atrial fibrillation SNOMED Code(s): 372671157902044 (2) Acute bronchitis: Status: Acute Code(s): J20.9 - Acute bronchitis, unspecified SNOMED Code(s): 97442914 Plan: telemetry monitoring, check labs in am--dr mckenna following with hospitalist staff
[2022-04-11] MEDS: PERCOCET 10-325 PO SCH ×3 (08:39→20:14)
[2022-04-11] MEDS: DALIRESP PO SCH (08:40)
[2022-04-11] MEDS: CARDIZEM PO SCH ×2 (08:41→20:13)
[2022-04-11] MEDS: FERROUS SULFATE PO SCH (08:41)
[2022-04-11] MEDS: ELIQUIS PO SCH ×2 (08:42→20:16)
[2022-04-11] MEDS: GLUCOPHAGE PO SCH ×2 (08:42→17:23)
[2022-04-11] MEDS: MIRALAX PO SCH (08:47)
[2022-04-11] MEDS: WELLBUTRIN PO SCH ×2 (08:49→20:14)
[2022-04-11] MEDS: LIPITOR PO SCH (08:50)
[2022-04-11] MEDS: COREG PO SCH ×3 (08:50→17:23)
[2022-04-11] MEDS: ZESTRIL PO SCH (08:51)
[2022-04-11] MEDS: ZITHROMAX PO SCH (08:53)
[2022-04-11] MEDS: ROCEPHIN 1 GM/50 ML D5W 1 GM/50 ML BAG IV SCH (09:03)
[2022-04-11] MEDS: SYMBICORT 160-4.5 MCG INHALER IH SCH (10:25)
[2022-04-11] MEDS: BREZTRI IH SCH ×2 (11:56→20:17)
[2022-04-11] MEDS ORDERED: CARDIZEM PO ONE (12:18)
[2022-04-11] MEDS: XANAX PO PRN ×2 (14:53→21:36)
[2022-04-11 16:38] LABS: ABG O2 HGB 93.1 % (95-100); ABG PH 7.39 (7.35-7.45); BEecf -7.4 (-2.0-3.0); COHb 2.3 (0.5-1.5); HCO3 17.6 (21-28); MetHb 1.1 (0-1.5); TCO2 18.5 (19-24); sO2 93.1 % (94-98); tHb 14.4 g/dl (11.7-17.4)
[2022-04-11] MEDS: MIRAPEX PO SCH (23:08)
[2022-04-11] MEDS: BENADRYL PO SCH (23:08)
[2022-04-11] MEDS: CARDIZEM 125 MG in SODIUM CHLORIDE 100ML 100 ML IV SCH (23:11)
[2022-04-12] MEDS: ALBUTEROL 0.083% NEB NEB PRN ×4 (05:05→14:06)
[2022-04-12] MEDS: HUMULIN R SUBCUT PRN ×2 (05:44→11:43)
[2022-04-12] MEDS: PROTONIX PO SCH (05:44)
[2022-04-12] MEDS: SOLU-MEDROL 125 MG IVP SCH ×3 (05:44→11:13)
[2022-04-12 05:55] LABS: BASOPHILS # (AUTO) 0.1 K/uL (0-0.2); BASOPHILS % (AUTO) 0.2 % (0.0-3.0); HEMATOCRIT 42.4 % (42.0-52.0); HEMOGLOBIN 13.8 g/dl (14.0-18.0); IMMATURE GRANULOCYTE # (AUTO) 0.5 (0.0-1.0); IMMATURE GRANULOCYTE % (AUTO) 1.8 % (0.0-5.0); LYMPHOCYTES # (AUTO) 1.5 K/uL (0.60-3.4); LYMPHOCYTES % (AUTO) 4.7 (10.0-50.0); MEAN CORPUSCULAR HEMOGLOBIN 26.2 pg (27.0-31.0); MEAN CORPUSCULAR HGB CONC 32.5 (31.8-35.4); MEAN CORPUSCULAR VOLUME 80.6 fl (80.0-94.0); MONOCYTES # (AUTO) 1.4 K/uL (0.4-2.0); MONOCYTES % (AUTO) 4.4 (0-10); NEUTROPHILS # (AUTO) 27.3 K/ul (2.0-6.9); NEUTROPHILS % (AUTO) 88.9 % (42.2-75.2); PLATELET COUNT 416 10^3/uL (140-440); RDW COEFFICIENT OF VARIATION 14.6 % (11.6-14.8); RED BLOOD COUNT 5.26 10^6/ul (4.70-6.10)
[2022-04-12 05:56] LABS: ALANINE AMINOTRANSFERASE 23.5 U/L (0-50); ALBUMIN 4.22 g/dL (3.5-5.0); ALKALINE PHOSPHATASE 69.9 U/L (56-119); ASPARTATE AMINO TRANSFERASE 19.7 U/L (17-59); BILIRUBIN,TOTAL 0.26 mg/dL (0.2-1.3); BLOOD UREA NITROGEN 20.1 mg/dL (9-20); CALCIUM 9.73 mg/dL (8.4-10.2); CARBON DIOXIDE 21.2 mmol/L (22-30.0); CHLORIDE 106.4 mmol/L (98-107); CREATININE 0.78 mg/dL (0.60-1.10); GLUCOSE 189.1 mg/dL (74-106); POTASSIUM 4.53 mmol/L (3.5-5.1); SODIUM 137.5 mmol/L (134.5-145); TOTAL PROTEIN 7.4 g/dL (6.3-8.2)
[2022-04-12 06:18] LABS: WHITE BLOOD COUNT 30.72 K/ul (4.2-10.2)
[2022-04-12] MEDS: ZITHROMAX PO SCH (08:29)
[2022-04-12] MEDS: CARDIZEM PO SCH (08:29)
[2022-04-12] MEDS: LIPITOR PO SCH (08:29)
[2022-04-12] MEDS: COREG PO SCH (08:30)
[2022-04-12] MEDS: ZESTRIL PO SCH (08:30)
[2022-04-12] MEDS: WELLBUTRIN PO SCH (08:31)
[2022-04-12] MEDS: DALIRESP PO SCH (08:31)
[2022-04-12] MEDS: FERROUS SULFATE PO SCH (08:31)
[2022-04-12] MEDS: GLUCOPHAGE PO SCH (08:31)
[2022-04-12] MEDS: ELIQUIS PO SCH (08:32)
[2022-04-12] MEDS: PERCOCET 10-325 PO SCH ×2 (08:32→14:40)
[2022-04-12] MEDS: MIRALAX PO SCH (08:32)
--- NOTE | 2022-04-12 08:53 | ECHO2D ---
Date of Exam: 04/10/2022 Ordering Physician: LUCI/DR. PRITCHARD Room #: 108 Reason for Echo: CHEST PAIN M-Mode Normal Adult Results LV Dimensions Normal Adult Results AoV Opening excursions >1.6 >1.6 LVEDD-base- 3.5-5.8 5.2 Ao root dimensions 2.0-3.7 3.6 LVESD-base- 3.1-4.6 L. Atrium dimensions 1.9-3.8 3.9 Post. Wall thickness 0.8-1.1 1.1 IV septum (thickness) 0.7-1.2 1.2 Post. Wall excursion 0.72-1.3 NORMAL Septal motion NORMAL Systolic motion R. Ventricular cavity 1.5-2.0 4.0 LVEF 60% 66% Paradoxical septal wall motion NORMAL 2-D : 2-D M Mode Echocardiogram was performed using apical four chamber and left parasternal long and short axis views. Mitral, tricuspid and aortic valves appear to be normal. Contractility of the left ventricle seems to be normal, so is the cavity size. Left atrial cavity size and aortic root appear to be normal. There is no pericardial effusion. There is no thrombus noted in the left ventricle or left atrial cavity. ENLARGED RIGHT VENTRICLE CAVITY M-MODE: MV: NORMAL AV: NORMAL TV: NORMAL PV: CHAMBER SIZE: RIGHT VENTRICLE CAVITY ENLARGEMENT WALL MOTION: NORMAL PERICARDIUM: NORMAL INTERPRETATION: 1. BORDERLINE LEFT VENTRICLE HYPERTROPHY 2. NORMAL LEFT VENTRICLE CONTRACTILITY AND LEFT VENTRICLE SIZE 3. NORMAL VALVES 4. NORMAL LEFT ATRIAL SIZE 5. ENLARGED RIGHT VENTRICLE CAVITY MTDD
--- NOTE | 2022-04-12 09:16 | PCM.PROG ---
Attending Provider: ATTENDING PROVIDER: Dr. PIPER JEAN This patient is seen with Charlene Person, Nurse Practitioner. DATE OF SERVICE: 04/12/22 SUBJECTIVE: This 62 year old /WHITE M was hospitalized 04/09/22. Denies any chest pain, normal sinus this morning. Rate controlled. Blood pressure is stable. Hgb stable with Eliquis. Had PFT and Echo yesterday. REVIEW OF SYSTEMS: CONSTITUTIONAL: No night sweats. No fatigue, malaise, lethargy. No fever or chills. HEENT: Eyes: No visual changes. No eye pain. No eye discharge. ENT: No runny nose. No epistaxis. No sinus pain. No odynophagia. No congestion. RESPIRATORY: No cough, no congestion. No hemoptysis. Shortness of breath. CARDIOVASCULAR: No angina symptoms. No CHF symptoms. No atypical chest pain for CAD. No palpitations. No orthopnea.. GASTROINTESTINAL: No abdominal pain. No nausea or vomiting. No diarrhea or co nstipation. No hematemesis. No hematochezia. GENITOURINARY: No urgency. No frequency. No dysuria. No hematuria. No obstructive symptoms. No discharge. No pain. No significant abnormal bleeding. MUSCULOSKELETAL: No musculoskeletal pain; no joint swelling. NEUROLOGICAL: Awake, alert, oriented to time, place and person. No headache. No neck pain. No syncope. No seizures. No dizziness. PSYCHIATRIC: Anxious. No depression. No suicidal thoughts. No homicidal thoughts. SKIN: No rash. No lesions. No wounds. ENDOCRINE: No unexplained weight loss. No weight gain. HEMATOLOGIC/LYMPHATIC: No anemia. No purpura. No petechiae. No prolonged or excessive bleeding. No palpable lymph nodes. PHYSICAL EXAMINATION: GENERAL: The patient is awake, alert and oriented, lying in bed in no distress. VITAL SIGNS: Temperature 97.4 F, Pulse 105, Respiratory Rate 18, BP 135/79, Pulse Ox 94% HEENT: Head normocephalic, atraumatic. Eyes: Extraocular muscles are intact. Pupils are equal, round and reactive to light and accommodation. Ears: No lesions. Nose appeared normal. Throat: No exudate or erythema. NECK: Supple. No JVD, no carotid bruit. No lymphadenopathy or thyromegaly. LUNGS: Diminished breath sounds. Clear to auscultation. Percussion note normal. Chest symmetrical. HEART: S1, S2, no S3. Regular rate and rhythm. No murmurs. No cyanosis or clubbing. No ascites. Pulses: Dorsalis pedis and posterior tibial pulses +1 to +2 both sides. ABDOMEN: Soft. Non-tender. Bowel sounds active. No CVA tenderness. No mass felt. EXTREMITIES: No edema. Full range of motion of all extremities, equal. NEUROLOGIC: No focal deficit. Cranial nerves II through XII are grossly intact. No headache. No double vision. SKIN: Not dry. Intact. Turgor-normal. LYMPHATIC: No palpable lymph nodes/no lymphedema. MUSCULOSKELETAL: Normal joints with no swelling. Muscle tone is normal. LAB REVIEW: 04/12/22 05:20 04/12/22 05:20 04/12/22 05:20: Sodium 137.5, Potassium 4.53, Chloride 106.4, Carbon Dioxide 21.2 L, Anion Gap 14.43, BUN 20.1 H, Creatinine 0.78, Estimated GFR (MDRD) 101.00, BUN/Creatinine Ratio 25.76, Glucose 189.1 H, Calcium 9.73, Total Bilirubin 0.26, AST 19.7, ALT 23.5, Alkaline Phosphatase 69.9, Total Protein 7.40, Albumin 4.22, Globulin 3.18, Albumin/Globulin Ratio 1.32 04/12/22 05:20: WBC 30.72 H D, RBC 5.26, Hgb 13.8 L, Hct 42.4, MCV 80.6, MCH 26.2 L, MCHC 32.5, RDW Coeff of Sameer 14.6, Plt Count 416, Immature Gran % (Auto) 1.8, Neut % (Auto) 88.9 H, Lymph % (Auto) 4.7 L, [place] % (Auto) 4.4, Eos % (Auto) 0.0, Baso % (Auto) 0.2, Neut # (Auto) 27.3 H, Lymph # (Auto) 1.5, [place] # (Auto) 1.4, Eos # (Auto) 0.0, Baso # (Auto) 0.1, Immature Gran # (Auto) 0.5 04/11/22 16:30: Puncture Site Lr, Base Excess -7.4 L, O2 Saturation 93.1 L, ABG pH 7.39, ABG pCO2 29.0 L, ABG pO2 68.0 L, ABG HCO3 17.6 L, ABG Total CO2 18.5 L, Nikos Test Pos, Hemoglobin 1.1, Oxyhemoglobin 93.1 L, Carboxyhemoglobin 2.3 H, Total Hemoglobin 14.4, FiO2 % 21.0 ASSESSMENT: Please see below. 1. New onset atrial fibrillation, rate controlled 2. Underline COPD 3. Diabetes Mellitus type II 4. Obesity 5. Metabolic syndrome 6. Chronic respiratory failure 7. LVH with enlarged right ventricle and right atrial cavity PLAN: 1. A1c 2. Stable from Cardiac stand point 3. Risk of bleeding with Eliquis discussed 4. The patient is advised not to take any NSAIDS 5. He advised to lose weight and stop smoking. Plan and coordination of the patient's care discussed in the presence of Roller Mechanic and nurse. SCRIBED BY: EMMANUEL CARLTON Evidence Technician scribed while in presence of service performed by Dr. Ba/Charlene Person APRN on 04/12/22 ([id number])
[2022-04-12] MEDS: ROCEPHIN 1 GM/50 ML D5W 1 GM/50 ML BAG IV SCH (09:21)
[2022-04-12] MEDS: XANAX PO PRN (11:14)
--- NOTE | 2022-04-12 11:19 | CONS ---
DATE OF CONSULTATION: 04/10/22 HISTORY OF PRESENT ILLNESS: 62 year old white male hospitalized through the emergency room with palpitation and some chest pressure like a chest pain duration of symptoms several hours. On further questioning had chest pain when he came in was more like pleuritic type on deep inspiration. Mostly he was having palpitation, mildly short of breath as usual. Said that he had similar episode several times of fast heart beat with history of atrial fibrillation. According to the patient he had denied to be on blood thinner. Saw in the emergency room the ER attending wanted him to be on Lovenox that he flatly refused. REVIEW OF SYSTEMS: CONSTITUTIONAL: No night sweats. Mild fatigue. No fever or chills. HEENT: Eyes: No visual changes. No eye pain. No eye discharge. ENT: No sinus drainage. No epistaxis. No sinus pain. No sore throat. No odynophagia. No ear pain. No congestion. RESPIRATORY: No cough, no congestion. No hemoptysis. No shortness of breath. CARDIOVASCULAR: No angina symptoms. No CHF symptoms. No atypical chest pain for CAD. Palpitations, still mild. No orthopnea. Chest pain subsided which was fairly atypical. GASTROINTESTINAL: No abdominal pain. No nausea or vomiting. No diarrhea or constipation. No hematemesis. No hematochezia. GENITOURINARY: No urgency. No frequency. No dysuria. No hematuria. No obstructive symptoms. No discharge. No pain. No significant abnormal bleeding. MUSCULOSKELETAL: No musculoskeletal pain. No joint swelling. Generalized aches and pains and restless legs. NEUROLOGICAL: No headache. No neck pain. No syncope. No seizures. No dizziness. PSYCHIATRIC: Not anxious. No depression. No suicidal thoughts. No homicidal thoughts. SKIN: No rash. No lesions. No wounds. ENDOCRINE: No unexplained weight loss. No weight gain. HEMATOLOGIC/LYMPHATIC: No anemia. No purpura. No petechiae. No prolonged or excessive bleeding. No palpable lymph nodes. MEDICATIONS: Benadryl Oxycodone Glipizide Budesonide Albuterol sulfate Lisinopril Metoprolol Diltiazem 30mg BID Omeprazole Atorvastatin Metformin Mirapex Lactulose ALLERGIES: Acyclovir Gabapentin Singulair Amoxicillin Augmentin SOCIAL/PERSONAL/FAMILY HISTORY: The patient is Full Code. Lives independently. Smoking, No alcohol abuse. PHYSICAL EXAMINATION: GENERAL: The patient is oriented to time, place and person. VITAL SIGNS: Temperature 97.4, pulse 110 irregular, respiratory rate 20, blood pressure 104/66 and pulse ox 98%. it is to be noted that the patient's blood pressure in the emergency room was 162/124. Weight 246 with BMI 41. HEENT: Head normocephalic, atraumatic. Eyes: Extraocular muscles are intact. Pupils are equal, round and reactive to light and accommodation. Ears: No lesions. Nose appeared normal. Throat: No exudate or erythema. NECK: Supple. No JVD, no carotid bruit. No lymphadenopathy or thyromegaly. LUNGS: Decreased breath sounds but clear good air entry. Percussion note normal. Chest symmetrical. HEART: S1, S2, no S3. Irregular. No murmurs. No cyanosis or clubbing. No ascites. Pulses: Dorsalis pedis and posterior tibial pulses +1 bilaterally. ABDOMEN: Soft. Nontender. Protuberant. Bowel sounds active. No CVA tenderness. No mass felt. EXTREMITIES: No edema. Full range of motion of all extremities, equal. NEUROLOGIC: No focal deficit. Cranial nerves II through XII are grossly intact. No headache, no double vision or headache. SKIN: Not dry. Intact. Turgor - normal. LYMPHATIC: No palpable lymph nodes/no lymphedema. MUSCULOSKELETAL: Normal joints with no swelling. Muscle tone is normal. LABS: Hgb 14.8, hct 46, WBC 15,000 normal differential, creatinine 0.9, BUN 14, potassium 3.9. Glucose 128, PROBNP 86, Troponin and CK-MB negative. Oxycodone screen positive. EKG atrial fibrillation with rapid ventricular response, no acute changes. Creatinine 0.7, BUN 16, Cholesterol 163, Triglycerides 164. ASSESSMENT: 1. Atrial fibrillation with rapid ventricular response 2. Severe hypertension on admission 3. Diabetes Mellitus 4. Dyslipidemia 5. Morbid Obesity 6. Noncompliance of lifestyle, diet, recommendation RECOMMENDATIONS: 1. 0.25mg Lanoxin for rate control now and repeat it in 3 hours 2. Cardizem drip to be reduce 5mg 3. Cardizem 60mg twice a day 4. The patient refusing to take Metoprolol 5. We will put the patient on Coreg 3.125mg BID 6. The patient is refusing Lovenox 7. We will advise the patient to take Eliquis 5mg twice a day 8. CHADS II VASC SCORE:2 9. The patient converted to sinus rhythm when I was about to do an echo which helped. The patient has borderline LVH with normal LV contractility. His LA cavity size is normal, valvular structures seems to be normal. LV cavity is enlarged because of COPD subcostal approach was used to do an echo because of his COPD. 10.Counseling done to lose weight. He is morbidly obese 11.Explained about atrial fibrillation and complications. 12.Eliquis side effects discussed with intracranial bleed. If decides to go on Eliquis not to take nonsteroidal antiinflammatory. 13.The patient's duration of atrial fibrillation was more than 12 hours. 14.The patient gives history of having atrial fibrillation several years off and on according to him. Thank you very much for referral, will follow. MARIA E
[2022-04-12] MEDS: BREZTRI IH SCH (12:52)
[2022-04-12 14:24] VITALS: BP 121/68; TEMP 96.9
--- NOTE | 2022-04-13 07:37 | PCM.DC ---
Final Diagnosis: Atrial Fibrillation with RVR, rate controlled. COPD exacerbation. Physical Exam Appearance: Well-appearing Ill-appearing: None Eyes: SARAH ENT: Oropharynx normal Neck: Supple Respiratory: Airway patent and Breath sounds clear Cardiovascular: Irregular rhythm GI/: Soft and Nontender Musculoskeletal: Normal strength and ROM intact Skin: Warm and Normal color Neurological: Sensation intact and Motor intact Psychiatric: Affect appropriate, Mood appropriate and Anxious (1) Atrial fibrillation with RVR: Status: Acute Code(s): I48.91 - Unspecified atrial fibrillation SNOMED Code(s): 397807321609915 (2) COPD exacerbation: Status: Acute Code(s): J44.1 - Chronic obstructive pulmonary disease with (acute) exacerbation SNOMED Code(s): 362669148 Reason for Hospitalization: Chronic A-fib, developed RVR, mild CP. Mild SOA (COPD). Prognosis/Condition at Discharge: Stable, improved. Medications at Discharge: Medications at Discharge (Home Meds & RX) diphenhydramine HCl 25 mg capsule (Benadryl) 50 mg PO BEDTIME sleep 01/10/17 oxycodone-acetaminophen 10 mg-325 mg tablet (Percocet) 1 ea PO TID 01/04/18 lancets 33 gauge #100 ea 12/19/20 budesonide 160 mcg-glycopyr 9 mcg-formot 4.8 mcg/actuation HFA inhaler (Breztri Aerosphere) 2 inh inhalation BID 01/12/21 lisinopril 2.5 mg tablet See Rx Instructions .Route .COMPLEX #90 tabs 10/02/21 albuterol sulfate 90 mcg/actuation aerosol inhaler (Ventolin HFA) 2 puff i nhalation TID #8.5 grams 11/27/21 bupropion HCl 150 mg 24 hr tablet, extended release 150 mg PO ONCE 90 days #90 tabs 11/27/21 albuterol sulfate 2.5 mg/3 mL (0.083 %) solution for nebulization 2.5 mg (3 mL) inhalation Q3H PRN bronchospasm #5,000 mL 12/07/21 omeprazole 40 mg capsule,delayed release See Rx Instructions .Route .COMPLEX #30 caps 01/27/22 dicyclomine 10 mg capsule 10 mg PO TID PRN abdominal pain #21 caps 03/03/22 atorvastatin 10 mg tablet See Rx Instructions .Route .COMPLEX #90 tabs 03/23/22 pramipexole 0.125 mg tablet 0.125 mg PO QDAY #30 tabs 04/06/22 budesonide-formoterol HFA 160 mcg-4.5 mcg/actuation aerosol inhaler (Symbicort) 1 puff inhalation BID 04/10/22 ferrous sulfate 325 mg (65 mg iron) tablet (FeroSul) 325 mg PO DAILYWM 04/10/22 metformin 500 mg tablet 500 mg PO BIDAC 04/10/22 roflumilast 500 mcg tablet (Daliresp) 500 mcg PO DAILY 04/10/22 alprazolam 0.25 mg tablet (Xanax) 0.25 mg PO BID PRN anxiety #20 tabs 04/12/22 apixaban 5 mg tablet (Eliquis) 5 mg PO BID #60 tabs 04/12/22 blood sugar diagnostic 1 strip .Route .daily 90 days #100 ea 04/12/22 carvedilol 6.25 mg tablet 6.25 mg PO BIDWM #60 tabs 04/12/22 cefuroxime axetil 500 mg tablet 500 mg PO BID For lung infection 7 days #14 tabs 04/12/22 diltiazem HCl 30 mg tablet 90 mg PO Q12HR #90 tabs 04/12/22 insulin regular human 100 unit/mL injection solution (Humulin R Regular U-100 Insulin) 1 sliding scale dose subcut DIRECTED 10 days 04/12/22 methylprednisolone 4 mg tablets in a dose pack (Medrol (Wilfred)) See Rx Instructions PO .COMPLEX #21 ea 04/12/22 polyethylene glycol 3350 17 gram/dose oral powder (Miralax) 17 g PO QDAY #510 grams 04/12/22 Lab/Diagnostics: Laboratory Tests 04/09/22 04/09/22 04/09/22 20:23 20:23 20:23 WBC RBC Hgb Hct MCV MCH MCHC RDW Coeff of Sameer Plt Count Immature Gran % (Auto) Neut % (Auto) Lymph % (Auto) Esmeralda % (Auto) Eos % (Auto) Baso % (Auto) Neut # (Auto) Lymph # (Auto) Esmeralda # (Auto) Eos # (Auto) Baso # (Auto) Immature Gran # (Auto) Puncture Site Base Excess O2 Saturation ABG pH ABG pCO2 ABG pO2 ABG HCO3 ABG Total CO2 Nikos Test Hemoglobin Oxyhemoglobin Carboxyhemoglobin Total Hemoglobin FiO2 % Sodium Potassium Chloride Carbon Dioxide Anion Gap BUN Creatinine Estimated GFR (MDRD) BUN/Creatinine Ratio Glucose Hemoglobin A1c Calcium Total Bilirubin AST ALT Alkaline Phosphatase Total Creatine Kinase Troponin I NT-Pro-B Natriuret Pep Total Protein Albumin Globulin Albumin/Globulin Ratio Triglycerides Cholesterol LDL Cholesterol, Calc VLDL Cholesterol HDL Cholesterol Cholesterol/HDL Ratio TSH Free T4 Urine Color Yellow Urine Clarity Clear Urine pH 7.0 Ur Specific [place] 1.015 Urine Protein Negative Urine Glucose (UA) Negative Urine Ketones Negative Urine Blood Negative Urine Nitrite Negative Urine Bilirubin Negative Urine Urobilinogen 0.2 Ur Leukocyte Esterase Negative Urine Opiates Screen Negative Ur Oxycodone Screen Positive H Urine Methadone Screen Negative Ur Propoxyphene Screen Negative Ur Barbiturates Screen Negative U Tricyclic Antidepress Negative Ur Phencyclidine Scrn Negative Ur Amphetamine Screen Negative U Methamphetamines Scrn Negative U Benzodiazepines Scrn Negative Urine Cocaine Screen Negative U Cannabinoids Screen Negative SARS CoV-2 RNA Rapid KARISSA Negative 04/09/22 04/09/22 04/09/22 20:43 20:43 20:43 WBC 17.16 H RBC 5.61 Hgb 14.5 Hct 44.7 MCV 79.7 L MCH 25.8 L MCHC 32.4 RDW Coeff of Sameer 14.4 Plt Count 353 Immature Gran % (Auto) 0.5 Neut % (Auto) 73.5 Lymph % (Auto) 14.9 Esmeralda % (Auto) 8.3 Eos % (Auto) 2.3 Baso % (Auto) 0.5 Neut # (Auto) 12.6 H Lymph # (Auto) 2.6 Esmeralda # (Auto) 1.4 Eos # (Auto) 0.4 Baso # (Auto) 0.1 Immature Gran # (Auto) 0.1 Puncture Site Base Excess O2 Saturation ABG pH ABG pCO2 ABG pO2 ABG HCO3 ABG Total CO2 Nikos Test Hemoglobin Oxyhemoglobin Carboxyhemoglobin Total Hemoglobin FiO2 % Sodium 138.6 Potassium 3.91 Chloride 104.8 Carbon Dioxide 21.1 L Anion Gap 16.61 BUN 16.1 Creatinine 0.78 Estimated GFR (MDRD) 101.00 BUN/Creatinine Ratio 20.64 Glucose 149.9 H Hemoglobin A1c Calcium 9.65 Total Bilirubin 0.27 AST 26.8 ALT 25.2 Alkaline Phosphatase 87.3 Total Creatine Kinase Troponin I < 0.012 NT-Pro-B Natriuret Pep 86.300 Total Protein 7.64 Albumin 4.40 Globulin 3.24 Albumin/Globulin Ratio 1.35 Triglycerides Cholesterol LDL Cholesterol, Calc VLDL Cholesterol HDL Cholesterol Cholesterol/HDL Ratio TSH Free T4 Urine Color Urine Clarity Urine pH Ur Specific [place] Urine Protein Urine Glucose (UA) Urine Ketones Urine Blood Urine Nitrite Urine Bilirubin Urine Urobilinogen Ur Leukocyte Esterase Urine Opiates Screen Ur Oxycodone Screen Urine Methadone Screen Ur Propoxyphene Screen Ur Barbiturates Screen U Tricyclic Antidepress Ur Phencyclidine Scrn Ur Amphetamine Screen U Methamphetamines Scrn U Benzodiazepines Scrn Urine Cocaine Screen U Cannabinoids Screen SARS CoV-2 RNA Rapid KARISSA 04/09/22 04/10/22 04/10/22 22:38 06:46 06:46 WBC 15.71 H RBC 5.83 Hgb 14.8 Hct 46.9 MCV 80.4 MCH 25.4 L MCHC 31.6 L RDW Coeff of Sameer 14.5 Plt Count 333 Immature Gran % (Auto) 0.4 Neut % (Auto) 69.1 Lymph % (Auto) 19.5 Esmeralda % (Auto) 7.6 Eos % (Auto) 2.9 Baso % (Auto) 0.5 Neut # (Auto) 10.8 H Lymph # (Auto) 3.1 Esmeralda # (Auto) 1.2 Eos # (Auto) 0.5 Baso # (Auto) 0.1 Immature Gran # (Auto) 0.1 Puncture Site Base Excess O2 Saturation ABG pH ABG pCO2 ABG pO2 ABG HCO3 ABG Total CO2 Nikos Test Hemoglobin Oxyhemoglobin Carboxyhemoglobin Total Hemoglobin FiO2 % Sodium Potassium Chloride Carbon Dioxide Anion Gap BUN Creatinine Estimated GFR (MDRD) BUN/Creatinine Ratio Glucose Hemoglobin A1c Calcium Total Bilirubin AST ALT Alkaline Phosphatase Total Creatine Kinase 70.8 Troponin I < 0.012 NT-Pro-B Natriuret Pep Total Protein Albumin Globulin Albumin/Globulin Ratio Triglycerides Cholesterol LDL Cholesterol, Calc VLDL Cholesterol HDL Cholesterol Cholesterol/HDL Ratio TSH Free T4 1.13 Urine Color Urine Clarity Urine pH Ur Specific [place] Urine Protein Urine Glucose (UA) Urine Ketones Urine Blood Urine Nitrite Urine Bilirubin Urine Urobilinogen Ur Leukocyte Esterase Urine Opiates Screen Ur Oxycodone Screen Urine Methadone Screen Ur Propoxyphene Screen Ur Barbiturates Screen U Tricyclic Antidepress Ur Phencyclidine Scrn Ur Amphetamine Screen U Methamphetamines Scrn U Benzodiazepines Scrn Urine Cocaine Screen U Cannabinoids Screen SARS CoV-2 RNA Rapid KARISSA 04/10/22 04/11/22 04/11/22 06:46 05:12 05:12 WBC 18.47 H RBC 5.53 Hgb 14.2 Hct 44.4 MCV 80.3 MCH 25.7 L MCHC 32.0 RDW Coeff of Sma[place] 14.2 Plt Count 347 Immature Gran % (Auto) 1.0 Neut % (Auto) 91.0 H Lymph % (Auto) 6.0 L Esmeralda % (Auto) 1.8 Eos % (Auto) 0.0 Baso % (Auto) 0.2 Neut # (Auto) 16.8 H Lymph # (Auto) 1.1 Esmeralda # (Auto) 0.3 L Eos # (Auto) 0.0 Baso # (Auto) 0.0 Immature Gran # (Auto) 0.2 Puncture Site Base Excess O2 Saturation ABG pH ABG pCO2 ABG pO2 ABG HCO3 ABG Total CO2 Nikos Test Hemoglobin Oxyhemoglobin Carboxyhemoglobin Total Hemoglobin FiO2 % Sodium 139.5 136.7 Potassium 3.98 4.61 Chloride 105.5 104.3 Carbon Dioxide 25.6 20.2 L Anion Gap 12.38 16.81 BUN 14.0 15.6 Creatinine 0.90 0.77 Estimated GFR (MDRD) 86.00 102.00 BUN/Creatinine Ratio 15.55 20.25 Glucose 128.8 H 251.6 H D Hemoglobin A1c Calcium 9.45 9.78 Total Bilirubin 0.28 0.28 AST 25.6 25.6 ALT 21.5 25.6 Alkaline Phosphatase 77.3 80.7 Total Creatine Kinase 79.9 Troponin I < 0.012 NT-Pro-B Natriuret Pep Total Protein 7.31 7.71 Albumin 4.21 4.49 Globulin 3.10 3.22 Albumin/Globulin Ratio 1.35 1.39 Triglycerides 164.9 H Cholesterol 163.6 LDL Cholesterol, Calc 95 VLDL Cholesterol 33 H HDL Cholesterol 35.9 Cholesterol/HDL Ratio 4.6 TSH 1.390 Free T4 Urine Color Urine Clarity Urine pH Ur Specific [place] Urine Protein Urine Glucose (UA) Urine Ketones Urine Blood Urine Nitrite Urine Bilirubin Urine Urobilinogen Ur Leukocyte Esterase Urine Opiates Screen Ur Oxycodone Screen Urine Methadone Screen Ur Propoxyphene Screen Ur Barbiturates Screen U Tricyclic Antidepress Ur Phencyclidine Scrn Ur Amphetamine Screen U Methamphetamines Scrn U Benzodiazepines Scrn Urine Cocaine Screen U Cannabinoids Screen SARS CoV-2 RNA Rapid KARISSA 04/11/22 04/12/22 04/12/22 16:30 05:20 05:20 WBC 30.72 H D RBC 5.26 Hgb 13.8 L Hct 42.4 MCV 80.6 MCH 26.2 L MCHC 32.5 RDW Coeff of Sameer 14.6 Plt Count 416 Immature Gran % (Auto) 1.8 Neut % (Auto) 88.9 H Lymph % (Auto) 4.7 L Esmeralda % (Auto) 4.4 Eos % (Auto) 0.0 Baso % (Auto) 0.2 Neut # (Auto) 27.3 H Lymph # (Auto) 1.5 Esmeralda # (Auto) 1.4 Eos # (Auto) 0.0 Baso # (Auto) 0.1 Immature Gran # (Auto) 0.5 Puncture Site Lr Base Excess -7.4 L O2 Saturation 93.1 L ABG pH 7.39 ABG pCO2 29.0 L ABG pO2 68.0 L ABG HCO3 17.6 L ABG Total CO2 18.5 L Nikos Test Pos Hemoglobin 1.1 Oxyhemoglobin 93.1 L Carboxyhemoglobin 2.3 H Total Hemoglobin 14.4 FiO2 % 21.0 Sodium 137.5 Potassium 4.53 Chloride 106.4 Carbon Dioxide 21.2 L Anion Gap 14.43 BUN 20.1 H Creatinine 0.78 Estimated GFR (MDRD) 101.00 BUN/Creatinine Ratio 25.76 Glucose 189.1 H Hemoglobin A1c Calcium 9.73 Total Bilirubin 0.26 AST 19.7 ALT 23.5 Alkaline Phosphatase 69.9 Total Creatine Kinase Troponin I NT-Pro-B Natriuret Pep Total Protein 7.40 Albumin 4.22 Globulin 3.18 Albumin/Globulin Ratio 1.32 Triglycerides Cholesterol LDL Cholesterol, Calc VLDL Cholesterol HDL Cholesterol Cholesterol/HDL Ratio TSH Free T4 Urine Color Urine Clarity Urine pH Ur Specific [place] Urine Protein Urine Glucose (UA) Urine Ketones Urine Blood Urine Nitrite Urine Bilirubin Urine Urobilinogen Ur Leukocyte Esterase Urine Opiates Screen Ur Oxycodone Screen Urine Methadone Screen Ur Propoxyphene Screen Ur Barbiturates Screen U Tricyclic Antidepress Ur Phencyclidine Scrn Ur Amphetamine Screen U Methamphetamines Scrn U Benzodiazepines Scrn Urine Cocaine Screen U Cannabinoids Screen SARS CoV-2 RNA Rapid KARISSA 04/12/22 05:20 WBC RBC Hgb Hct MCV MCH MCHC RDW Coeff of Sameer Plt Count Immature Gran % (Auto) Neut % (Auto) Lymph % (Auto) Esmeralda % (Auto) Eos % (Auto) Baso % (Auto) Neut # (Auto) Lymph # (Auto) Esmeralda # (Auto) Eos # (Auto) Baso # (Auto) Immature Gran # (Auto) Puncture Site Base Excess O2 Saturation ABG pH ABG pCO2 ABG pO2 ABG HCO3 ABG Total CO2 Nikos Test Hemoglobin Oxyhemoglobin Carboxyhemoglobin Total Hemoglobin FiO2 % Sodium Potassium Chloride Carbon Dioxide Anion Gap BUN Creatinine Estimated GFR (MDRD) BUN/Creatinine Ratio Glucose Hemoglobin A1c 6.92 H Calcium Total Bilirubin AST ALT Alkaline Phosphatase Total Creatine Kinase Troponin I NT-Pro-B Natriuret Pep Total Protein Albumin Globulin Albumin/Globulin Ratio Triglycerides Cholesterol LDL Cholesterol, Calc VLDL Cholesterol HDL Cholesterol Cholesterol/HDL Ratio TSH Free T4 Urine Color Urine Clarity Urine pH Ur Specific [place] Urine Protein Urine Glucose (UA) Urine Ketones Urine Blood Urine Nitrite Urine Bilirubin Urine Urobilinogen Ur Leukocyte Esterase Urine Opiates Screen Ur Oxycodone Screen Urine Methadone Screen Ur Propoxyphene Screen Ur Barbiturates Screen U Tricyclic Antidepress Ur Phencyclidine Scrn Ur Amphetamine Screen U Methamphetamines Scrn U Benzodiazepines Scrn Urine Cocaine Screen U Cannabinoids Screen SARS CoV-[address] chest FINDINGS: Limited assessment lymphadenopathy without contrast. Heart size is normal. Coronary artery and aortic calcifications. No pericardial effusion. Mild emphysema. Mild bronchial thickening. Scattered linear opacities in both lower lobes. No consolidation, pleural effusion or pneumothorax. There is no acute abnormality in the upper abdomen. Degenerative changes throughout the spine. IMPRESSION: 1. Mild emphysema. 2. Mild bronchial thickening which could be infectious or inflammatory. 3. Mild bibasilar subsegmental atelectasis. Education Provided to Patient and Family: Per RN Follow-ups: PCP in about a week. Discharge Disposition: Home Hospital Course: Admitted with A-fib RVR, rate controlled with cardizem, IV then po. No sign of NH, seen by Dr. Ba. See his report, echo and med adjustments. Patient had A- fib with controlled rate and VS at D/C. Mild COPD exac - improving with steroids and abx, has neb, has CPAP for BURT. Plan: See med list. F/U with Dr. Kimball. Time spent with [id number] exam and documentation is 50 minutes.
== END 2022-04-12 15:01 | disposition home or self-care (01) | DRG 309 ==
LOC: ED 20:06 → MEDSURG A 22:15
PROVIDERS: ADMIT Emergency Medicine; ATTEND Internal Medicine Geriatric Medicine